=== PATIENT | male | born 1965 | race Caucasian/White ===

== ENCOUNTER 2020-08-04 08:39 | Outpatient (REF) | payer MEDICAID, SELFPAY ==
[2020-08-04 11:30] LABS: PSA,Total (Free>4and<10) 3.18 ng/mL (0.00-4.00)
== END 2020-08-04 08:40 | disposition home or self-care (01) ==
LOC: HO.LAB 08:39
PROVIDERS: PCP Family Medicine; Visit Provider Urology
DX: N42.9 Disorder of prostate, unspecified (principal)
CPT/HCPCS: 84153

== ENCOUNTER → 2020-09-11 08:47 | Outpatient (BNVA) | payer MEDICAID, SELFPAY | PROVIDERS: PCP Family Medicine; Visit Provider Nurse Practitioner | DX: Z76.89 Persons encountering health services in other specified circumstances (principal) ==

== ENCOUNTER → 2020-09-25 11:48 | Outpatient (BNVA) | payer MEDICAID, SELFPAY | PROVIDERS: PCP Family Medicine; Visit Provider Nurse Practitioner | DX: Z76.89 Persons encountering health services in other specified circumstances (principal) ==

== ENCOUNTER 2020-10-16 08:41 | Outpatient (REF) | payer MEDICAID, SELFPAY ==
--- NOTE | 2020-10-16 08:51 | XR_ITS ---
EXAMINATION: BILATERAL FEET CLINICAL INFORMATION: Bilateral foot pain. COMPARISON: 06/25/2013 and 06/22/2012. TECHNIQUE: 3 views of each foot. FINDINGS: 3 views of the right foot do not demonstrate any evidence of acute fracture or dislocation. No destructive bony lesions identified. No radiopaque foreign bodies. Joint spaces are maintained. There are Achilles and plantar calcaneal spurs present. No significant soft tissue swelling. 3 views of the left foot does not demonstrate any evidence of acute fracture or dislocation. No significant soft tissue swelling is appreciated. No radiopaque foreign body. There is minimal spurring about the 1st metatarsophalangeal joint. Calcaneal spurs sites of insertion of plantar and Achilles tendons again seen. XR/XR foot RT min 3V IMPRESSION: Bilateral calcaneal spurs.
--- NOTE | 2020-10-16 08:51 | XR_ITS ---
EXAMINATION: BILATERAL FEET CLINICAL INFORMATION: Bilateral foot pain. COMPARISON: 06/25/2013 and 06/22/2012. TECHNIQUE: 3 views of each foot. FINDINGS: 3 views of the right foot do not demonstrate any evidence of acute fracture or dislocation. No destructive bony lesions identified. No radiopaque foreign bodies. Joint spaces are maintained. There are Achilles and plantar calcaneal spurs present. No significant soft tissue swelling. 3 views of the left foot does not demonstrate any evidence of acute fracture or dislocation. No significant soft tissue swelling is appreciated. No radiopaque foreign body. There is minimal spurring about the 1st metatarsophalangeal joint. Calcaneal spurs sites of insertion of plantar and Achilles tendons again seen. XR/XR foot LT min 3V IMPRESSION: Bilateral calcaneal spurs.
== END 2020-10-16 08:42 | disposition home or self-care (01) ==
LOC: HO.XRAY 08:41
PROVIDERS: PCP Family Medicine; Visit Provider Family Medicine
DX: M79.671 Pain in right foot (principal); M79.672 Pain in left foot
CPT/HCPCS: 73630

== ENCOUNTER 2021-02-24 07:54 | Outpatient (REF) | payer MEDICAID, SELFPAY ==
[2021-02-24 10:08] LABS: PSA,Total (Free>4and<10) 6.21 ng/mL (0.00-4.00)
[2021-02-25 10:28] LABS: Free Prostate Spec Ag 0.9 ng/mL; Percent Free Prostate Spec Ag 16 % (calc) (>25); Prostate Specific Ag Total 5.7 ng/mL (< OR = 4.0)
== END 2021-02-24 07:55 | disposition home or self-care (01) ==
LOC: HO.LAB 07:54
PROVIDERS: PCP Family Medicine; Visit Provider Physician Assistant Surgical
DX: R97.20 Elevated prostate specific antigen [PSA] (principal); Z12.5 Encounter for screening for malignant neoplasm of prostate
CPT/HCPCS: 36415; 84153; 84154

== ENCOUNTER → 2021-03-12 09:22 | Outpatient (BNVA) | payer MEDICAID, SELFPAY | PROVIDERS: PCP Family Medicine; Visit Provider Nurse Practitioner ==

== ENCOUNTER 2021-04-28 12:57 | Emergency (ER) | payer MEDICAID, SELFPAY ==
--- NOTE | ~2021-04-28 | CT_ITS ---
EXAMINATION: CT CERVICAL SPINE WITHOUT CONTRAST CLINICAL INFORMATION: Fall COMPARISON: None TECHNIQUE: Axial images through the cervical spine without contrast. Sagittal and coronal reconstructions on the technologist workstation were performed. This CT examination was performed using dose optimization techniques as appropriate, variously including the following: *Automated exposure control *Adjustment of mA and/or kV according to patient size (this includes techniques or standardized protocols for targeted exams where dose is matched to indication/reason for exam; i.e. extremities or head) *Use of iterative reconstruction technique DLP: 828 mGy-cm FINDINGS: Bone alignment is normal. No fracture or dislocation is seen. There is degenerative spondylosis at C4-C5, C5-C6 and C6-C7. There is mild disc space narrowing at C4-C5. There are degenerative changes at the C1 dens articulation. Prevertebral soft tissues are normal. The lung apices are clear. CT/CT cervical spine wo con IMPRESSION: Degenerative degenerative changes. No fracture seen.
--- NOTE | ~2021-04-28 | CT_ITS ---
EXAMINATION: CT CHEST WITHOUT CONTRAST CLINICAL INFORMATION: Fall, trauma, back pain. COMPARISON: CT contrast noncontrast 02/08/2020. TECHNIQUE: Multidetector volumetric CT imaging of the chest was done. Axial MIP volume rendering provided. Sagittal and coronal reformatted images were obtained. This CT examination was performed using dose optimization techniques as appropriate, variously including the following: *Automated exposure control *Adjustment of mA and/or kV according to patient size (this includes techniques or standardized protocols for targeted exams where dose is matched to indication/reason for exam; i.e. extremities or head) *Use of iterative reconstruction technique DLP: 569 mGy-cm FINDINGS: LUNGS: The lungs are clear. There is no pneumothorax, airspace opacity or infiltrate. The central airways are clear. No endobronchial lesion or bronchiectasis. MEDIASTINUM: The mediastinum is unremarkable. There is no pericardial effusion. Thoracic aorta is normal in caliber. There is no hilar or mediastinal adenopathy. No mediastinal hematoma. No pneumomediastinum. PLEURA: No pleural thickening or effusion. AXILLA: No lymphadenopathy. UPPER ABDOMEN: Visualized liver and spleen are unremarkable. No upper abdominal ascites or fluid collection or free air. OSSEOUS STRUCTURES: No acute bony abnormality. No fracture. There is spurring thoracic vertebrae. CT/CT chest wo con IMPRESSION: Unremarkable examination.
--- NOTE | ~2021-04-28 | CT_ITS ---
EXAMINATION: CT LUMBAR SPINE WITHOUT CONTRAST CLINICAL INFORMATION: Pain post fall COMPARISON: None TECHNIQUE: Axial images through the lumbar spine without contrast. Sagittal and coronal reconstructions on the technologist workstation were performed. This CT examination was performed using dose optimization techniques as appropriate, variously including the following: *Automated exposure control *Adjustment of mA and/or kV according to patient size (this includes techniques or standardized protocols for targeted exams where dose is matched to indication/reason for exam; i.e. extremities or head) *Use of iterative reconstruction technique DLP; 905 mGy-cm FINDINGS: Bone alignment is normal. No fracture or dislocation is seen. T12-L1: No disc herniation is seen. There is facet arthritis. L1-L2: No disc herniation seen. There is facet arthritis. L2-L3: There is a broad-based diffuse disc bulge. There is mild secondary spinal stenosis due to disc bulge, short pedicles and facet arthritis. L3-L4: There is diffuse disc bulge. There is mild spinal stenosis due to disc, short pedicles and facet arthritis. L4-L5: There is a degenerative disc disease and diffuse disc bulge. There is severe secondary spinal stenosis due to disc bulge, short pedicles and facet arthritis. L5-S1: No disc herniation or bulge is seen. There is mild bilateral facet arthritis. CT/CT lumbar spine wo con IMPRESSION: No fracture or dislocation seen. Multilevel disc bulge and secondary spinal stenosis, greatest at L4-L5.
--- NOTE | ~2021-04-28 | CT_ITS ---
EXAMINATION: CT HEAD WITHOUT CONTRAST CLINICAL INFORMATION: Fall COMPARISON: None TECHNIQUE: Contiguous axial imaging was performed from the skull base to vertex without intravenous administration of contrast. This CT examination was performed using dose optimization techniques as appropriate, variously including the following: *Automated exposure control *Adjustment of mA and/or kV according to patient size (this includes techniques or standardized protocols for targeted exams where dose is matched to indication/reason for exam; i.e. extremities or head) *Use of iterative reconstruction technique DLP: 7.4 mGy-cm FINDINGS: There is no evidence of acute intracranial hemorrhage or territorial infarction. No abnormal mass effect or midline shift is seen. Mejia to white matter differentiation is well preserved. No extra-axial fluid collections are identified. The ventricles are normal in size. There is no abnormal attenuation within the brain parenchyma. The osseous structures and soft tissues are normal. The mastoid air cells and visualized portions of the paranasal sinuses are well aerated. CT/CT head/brain wo con IMPRESSION: Unremarkable exam.
[2021-04-28 13:34] VITALS: BP 162/87; PULSE 57; RESP 18; TEMP 36.4; O2SAT 96; BMI 41.3
[2021-04-28] MEDS: oxyCODONE HCl Immed Release 5 MG TABLET PO (14:34)
[2021-04-28] MEDS: Acetaminophen 325 MG TABLET 975 MG PO (14:34)
--- NOTE | 2021-04-28 15:03 | ED.FALL ---
HPI - Fall General Chief Complaint: Fall Stated Complaint: fell off ladder chest pain Time Seen by Provider: 04/28/21 13:36 Source: patient Mode of arrival: ambulatory Limitations: language barrier ([place]ander-speaking) History of Present Illness HPI Narrative: 55-year-old male presenting to the ED with complaints of neck and entire back pain after he was on a 6 ft ladder trying to change a light bulb he lost his balance falling onto his back prior to arrival. Denies head injury or loss of consciousness. Denies being on any blood thinners. Denies any symptoms prior to the fall. Reports only pain after the fall no other symptoms. Denies any other symptoms complaints or concerns or injuries at this time. MD complaint: fall Onset (ago): minute(s) (Prior to arrival) Fall from: from height (distance) (From 6 ft off of a ladder) Fall witnessed: yes, by family Place fall occurred: home Loss of consciousness: none Prolonged down time: no Symptoms prior to fall: none Context: tripped/slipped Location of injury: neck and back Severity: severe Severity scale (1-10): >10 Quality: aching, spasming and throbbing Associated symptoms (after fall): denies Related Data Previous Rx's Medication Instructions Recorded bisacodyl 5 mg tablet,delayed 10 mg PO BEDTIME 2 Days #4 tab 03/12/21 release (Dulcolax (bisacodyl)) calcium polycarbophil 625 mg 1,250 mg PO BID 30 Days #120 tab 03/12/21 tablet (Fiber Therapy (ca polycarbophil)) magnesium citrate 150 ml PO DAILY 2 Days #300 ml 03/12/21 pantoprazole 40 mg tablet,delayed 40 mg PO BID 30 Days #60 tab 03/12/21 release (Protonix) acetaminophen 500 mg tablet 1,000 mg PO QID PRN #14 tab 04/28/21 (Tylenol Extra Strength) cyclobenzaprine 10 mg tablet 10 mg PO Q8H #10 tab 04/28/21 oxycodone 5 mg tablet 5 mg PO BID PRN #10 tab 04/28/21 Allergies Allergy/AdvReac Type Severity Reaction Status Date / Time No Known Allergies Allergy Unknown unknown Verified 03/12/21 09:22 [NO KNOWN ALLERGIES] seasonal Allergy Runny Nose Uncoded 09/25/20 11:50 Review of Systems Review of Systems: Constitutional : No trauma, No Weight loss, No Fever, No Chills, ENT/Mouth : No Hearing loss, No Ear Pain, No Nasal Congestion, No Sinus Pain, No Hoarseness, No sore throat, No Rhinorrhea, No Swallowing Difficulty Cardiovascular : No Chest Pain, No SOB Respiratory : No Cough, No Dyspnea Gastrointestinal : No Nausea, No Vomiting, No Diarrhea, No abdominal Pain, No Hematochezia, No Melena Genitourinary : No Dysuria, No Urinary Frequency, No Hematuria, No Urinary or Bowel Incontinence/retention Musculoskeletal : + Back pain, + neck pain, No joint stiffness, No joint swelling Skin : No Skin Lesions, No rash or signs of infection Neuro : No Weakness, No radiation, No Numbness, No Paresthesias, No headache, no loss of bowel or bladder incontinence, no saddle anesthesia, Focal weakness, No radiation Denies history of IV drug usage. Yes all other systems are reviewed and are negative PMFSH Past Medical History Attestation statement: The following information was validated with the patient. Medical History Asthma HTN (hypertension) Surgical History H/O colonoscopy H/O esophagogastroduodenoscopy Previous back surgery Family History Family History Family/Other No pertinent past medical history Social History Social History Alcohol intake: current Alcohol intake frequency: does not drink Advance Directives: No Advance Directives Information Provided: No Physical Exam Vital Signs: Vital Signs: Last Vital Signs Temp 97.6 F 04/28/21 13:34 Pulse 57 04/28/21 13:34 Resp 18 04/28/21 13:34 BP 162/87 H 04/28/21 13:34 Pulse Ox 96 04/28/21 13:34 Body Mass Index 41.3 vital signs have been reviewed as normal and appeared to be correct. Blood pressure normal. Heart rate normal. Respiration rate normal. Temperature normal. Oxygen saturation normal. Appearance: Alert. Oriented X3. No acute distress. Head: Normal external exam. Normocephalic. Atraumatic. No Mason signs noted. No raccoon eyes noted Eyes: PERRLA. EOMI. Conjunctiva and sclera normal. Eyelids normal. ENT: EAC normal. TM's Normal. Pharynx normal. Uvula midline. Moist mucous membranes. No trismus noted. No drooling noted. No muffled voice noted. Neck: Normal inspection. Neck supple. FROM. No adenopathy. Thyroid Normal. Trachea midline. No meningeal signs. No neck mass noted. Tender to palpation of bilateral paracervical musculature and mid cervical tenderness. No step-offs or deformities noted. Patient neuro intact bilaterally and distally on all 4 extremities. Reflexes intact bilaterally and distally in all 4 extremities. No rashes/lesion/induration/fluctuance or signs of infection noted. No edema noted. CVS: Normal heart rate and rhythm. Heart sound normal. No murmurs noted. Pulses normal throughout. Respiratory: No respiratory distress. Painless inspiration. Breath sounds normal. No wheezes/rales/rhonchi noted. Chest nontender. No accessory muscle usage noted or decreased air movement noted. Abdomen: Soft and nontender. Bowel sounds normal in all 4 quadrants. No distention noted. No organomegaly noted. No visible injury noted. Back: No CVA tenderness. Full range of motion noted. No obvious deformities, or edema. Mild para-spinal muscular tenderness from lumbar region to coccyx. Full ROM in back and lower extremities. 5/5 strength hip extension/flexion, abduction, adduction. Mild Lumbar pain with hip flexion against resistance. Straight leg raise test negative on right; Straight leg raise test negative on left; Reflexes normal ankle and knee bilaterally; EHL motor strength normal bilaterally. Patient has moderate ecchymosis to mid thoracic spine. rashes/lesion/induration/fluctuance or signs infection noted. Skin: Skin warm and dry. Normal skin color. Normal skin turgor. No rashes/lesions/lacerations noted. Extremities: No lower extremity edema. Extremities exhibit normal range of motion. Extremities nontender. Neuro: Oriented X 3. No motor deficit. No sensory deficit. Reflexes normal. Patient has a normal steady gait. Course Course Course Narrative: 55-year-old male presenting to the ED with complaints of neck and back pain after he fell off of a ladder approximately 6 ft while he was changing a light bulb. Denies head injury or loss of consciousness. Denies being on any blood thinners. Denies any other injuries complaints or concerns. Denies any symptoms prior to the fall and reports only pain after the fall no other injuries or symptoms. Obtaining CT scan of brain/cervical spine/chest and lumbar spine if negative will DC home with symptomatic treatment and instructions return if any new or worsening symptoms and to follow up with primary care provider. Patient understands agrees with this plan. MDM - Fall Medical Records Attestation: I reviewed the patient's medical records. Lab Data Attestation: I reviewed the patient's lab results. Discharge Plan Discharge Clinical Impression: Fall, Acute cervical sprain, Lumbar back sprain, Ecchymosis Patient Disposition: Home, Self-Care Instructions: Fall Prevention for Older Adults (ED), Low Back Strain (ED), Cervical Sprain (ED), Lower Back Exercises (ED), Thoracic Back Strain (ED) Prescriptions: New cyclobenzaprine 10 mg tablet 10 mg PO Q8H Qty: 10 RF: 0 acetaminophen [Tylenol Extra Strength] 500 mg tablet 1,000 mg PO QID PRN (Reason: fever or pain) Qty: 14 RF: 0 oxycodone 5 mg tablet 5 mg PO BID PRN (Reason: pain) Qty: 10 RF: 0 No Action calcium polycarbophil [Fiber Therapy (ca polycarboph)] 625 mg tablet 1,250 mg PO BID 30 Days Qty: 120 RF: 6 pantoprazole [Protonix] 40 mg tablet,delayed release (DR/EC) 40 mg PO BID 30 Days Qty: 60 RF: 6 bisacodyl [Dulcolax (bisacodyl)] 5 mg tablet,delayed release (DR/EC) 10 mg PO BEDTIME 2 Days Qty: 4 RF: 0 magnesium citrate Solution 150 ml PO DAILY 2 Days Qty: 300 RF: 0 Referrals: Kristen Cruz MD [Primary Care Provider] - 2 days Print Language: [place]ander
== END 2021-04-28 15:49 | disposition home or self-care (01) ==
PROVIDERS: Emergency Provider Emergency Medicine; PCP Family Medicine
DX: S13.9XXA Sprain of joints and ligaments of unspecified parts of neck, initial encounter (principal); S33.5XXA Sprain of ligaments of lumbar spine, initial encounter; S30.0XXA Contusion of lower back and pelvis, initial encounter; M54.2 Cervicalgia; M54.6 Pain in thoracic spine; G44.309 Post-traumatic headache, unspecified, not intractable; W11.XXXA Fall on and from ladder, initial encounter; Y93.9 Activity, unspecified; Y92.9 Unspecified place or not applicable; Y99.9 Unspecified external cause status; Z79.899 Other long term (current) drug therapy
CPT/HCPCS: 70450; 71250; 72125; 72131; 99283

== ENCOUNTER 2021-09-15 10:49 | Day surgery (SDC) | payer MEDICAID, SELFPAY ==
[2021-09-09 09:52] VITALS: BMI 39.9
--- NOTE | 2021-09-14 10:14 | HO.ANESPROP2 ---
Documented by User: Griselda Andrews NP 09/14/21 10:14 HPI - Anesthesia Eval Consult details Narrative: 56yo M for Colonoscopy PMFSH Active Problems Active Problems: All Active Problems (Updated 09/09/21 @ 10:04 by Katlyn Harding RN) GERD (gastroesophageal reflux disease) (Acute) Chronic diarrhea (Acute) Tubular adenoma of colon (Acute) Asthma (Acute) HTN (hypertension) (Acute) Past Medical History Medical History (Updated 09/09/21 @ 10:04 by Katlyn Harding RN) Asthma BPH (benign prostatic hyperplasia) HTN (hypertension) Low back pain KANWAL on CPAP Family History Family History Family/Other No pertinent past medical history Surgical History Surgical History (Updated 09/09/21 @ 09:51 by Katlyn Harding RN) H/O colonoscopy H/O esophagogastroduodenoscopy History of nasal surgery Previous back surgery Social History Social History (Updated 09/09/21 @ 09:50 by Katlyn Harding RN) Alcohol intake: current Alcohol intake frequency: does not drink Patient Tobacco Use Status: Never used Tobacco Use of substances other than those prescribed or required for medical reasons: No Have you been hit, kicked, punched, or otherwise hurt by someone within the past year? If so, by whom?: No Are you DNR?: No Advance Directives: No Advance Directives Information Provided: Yes Advance Directives on File: No Recently lost weight without trying: No Meds Allergies Allergy/AdvReac Type Severity Reaction Status Date / Time No Known Allergies Allergy Unknown unknown Verified 09/09/21 09:50 [NO KNOWN ALLERGIES] seasonal Allergy Runny Nose Uncoded 09/25/20 11:50 Home Medications Medication Instructions Recorded Confirmed Last Taken Type albuterol sulfate 90 mcg/actuation 2 puff PO Q6H PRN 09/09/21 09/09/21 Unknown History aerosol inhaler (ProAir HFA) lisinopril 40 mg tablet 40 mg PO DAILY 09/09/21 09/09/21 Unknown History Exam Exam Date and Time: September 14, 2021 1014 Height,Weight and Vital Signs: Height 5 ft 9 in Weight 122.47 kg Assessment and Plan Assessment Anesthesia Assessment: Chart Reviewed Documented by User: Mario Sagar 09/15/21 11:38 PMFSH Past Medical History Medical History (Updated 09/09/21 @ 10:04 by Katlyn Harding RN) Asthma BPH (benign prostatic hyperplasia) HTN (hypertension) Low back pain KANWAL on CPAP Family History Family History Family/Other No pertinent past medical history Family history of problems with anesthesia: No Surgical History Surgical History (Updated 09/09/21 @ 09:51 by Katlyn Harding RN) H/O colonoscopy H/O esophagogastroduodenoscopy History of nasal surgery Previous back surgery History of Problems with Anesthesia: No Social History Social History (Updated 09/09/21 @ 09:50 by Katlyn Harding RN) Alcohol intake: current Alcohol intake frequency: does not drink Patient Tobacco Use Status: Never used Tobacco Use of substances other than those prescribed or required for medical reasons: No Have you been hit, kicked, punched, or otherwise hurt by someone within the past year? If so, by whom?: No Are you DNR?: No Advance Directives: No Advance Directives Information Provided: Yes Advance Directives on File: No Recently lost weight without trying: No Meds Allergies Allergy/AdvReac Type Severity Reaction Status Date / Time No Known Allergies Allergy Unknown unknown Verified 09/09/21 09:50 [NO KNOWN ALLERGIES] seasonal Allergy Runny Nose Uncoded 09/25/20 11:50 Home Medications Medication Instructions Recorded Confirmed Last Taken Type albuterol sulfate 90 mcg/actuation 2 puff PO Q6H PRN 09/09/21 09/09/21 Unknown History aerosol inhaler (ProAir HFA) lisinopril 40 mg tablet 40 mg PO DAILY 09/09/21 09/09/21 Unknown History Exam Airway Mallampati Class: III TM Dist: >3cm Neck ROM: Full Loose/Missing/Broken Teeth: Yes (Missing teeth ) Heart: rrr Lungs: bl breath sounds Assessment and Plan Final Anesthetic Review Family History of Problems with Anesthesia: No History of Problems with Anesthesia: No NPO: Yes ASA Class: II Final Preanesthetic Review: Meds/Filipe Chart Reviewed Patient Risk: Intermediate Procedure Risk: Intermediate Anesthetic Plan Anesthetic Plan: MAC: Disposition: Standard PACU
[2021-09-15 10:53] VITALS: BP 146/101; PULSE 68; RESP 17; TEMP 37; O2SAT 98
[2021-09-15] MEDS: Lactated Ringers 1,000 ML 100 ML IVCONT (11:10)
--- NOTE | 2021-09-15 12:37 | MHC.SHP ---
Pre-Procedural Eval Section A Date of Service: 09/15/21 The patient is an INPATIENT: No The History & Physical has been completed within 30 days and I have reviewed it.: No Section B Chief Complaint: Noninfective Gastroenteritis and Colitis Details of Present Illness: Colon cancer screening, history of colon polyps, diarrhea Relevant Family History (Specify if Yes): No Relevant Social History: None Present Medications: see Short Stay Collaborative assessment Medical History: Significant History (GERD, Htn, asthma) History of Previous Operations: Relevant previous surgery/procedure and date(s) (H/O colonoscopy H/O esophagogastroduodenoscopy) Allergies: Allergies Allergy/AdvReac Type Severity Reaction Status Date / Time No Known Allergies Allergy Unknown unknown Verified 09/09/21 09:50 [NO KNOWN ALLERGIES] seasonal Allergy Runny Nose Uncoded 09/25/20 11:50 Review of Systems Sugical H&P ROS: Negative: Constitution, Cardiovascular and Respiratory and Yes, Specify: Gastrointestinal (diarrhea) Exam Surgical H&P Exam: Normal: Heart, Normal: Lungs and Normal: Abdomen Plan Diagnosis/Plan: Unchanged I have reviewed the history and physical and performed a pertinent physical examination on my patient. No changes have occurred unless specified.
--- NOTE | 2021-09-15 12:43 | PM.PROC ---
Brief Operative Note Date of procedure: 09/15/21 Pre-op diagnosis: , colon cancer screening, history of colon polyps, chronic diarrhea Post-op diagnosis: other (Colon polyps, diverticulosis, hemorrhoids) Procedure: Procedure:? COLONOSCOPY TILL CECUM WITH BIOPSIES, SNARE POLYPECTOMY AND SUBMUCOSAL INJECTION Consent: Indications for the procedure and potential complications of bleeding, perforation, reaction to medications and missed diagnosis were discussed with the patient and informed consent was obtained. Instrument: Olympus CF H 190 L variable stiffness adult colonoscope Monitoring: Vital signs and clinical assessment, intermittent blood pressure monitoring, continuous EKG monitoring, Pulse oximetry and Carbon Dioxide monitoring were done throughout the procedure. Colon withdrawl time was 35 minutes. Procedure: The patient was placed in the left lateral decubitis position and pre-procedure medications were administered. After a digital rectal examination of the ano-rectum, the video colonoscope was inserted into the rectum and advanced through the colon to the cecum. The colonoscope was slowly withdrawn in a retrograde panoramic fashion and the colon mucosa was carefully examined including a retroflexed view of the rectum. Findings and interventions are described below. Procedure Difficulty: Without difficulty Findings: Terminal Ileum: Not evaluated Cecum:? Normal Ascending Colon:? Normal Transverse Colon:? Three 10-15 mm sessile polyps removed by hot and cold snare. A 3-4 mm sessile polyp at 70 cms removed with a cold bx. A 15 mm sessile polyp at 60 cms - adjacent to a site of past Rosa ink injection - raised with 4 cc of Orise solution and removed with a hot snare Descending Colon:? Normal Sigmoid Colon:? A 10-12 mm sessile polyp removed with a hot snare. Moderate diverticulosis Rectum:? Normal Ano-rectum:? Small internal hemorrhoids Colon preparation:? Good after copious irrigation Impression and Post Procedure Diagnosis: Colonoscopy Findings: Six medium sized polyps removed. Random biopsies were obtained from the colon to check for microscopic colitis. Moderate diverticulosis seen in the left colon Small hemorrhoids on retroflexed exam. Plan: Await pathology results Patient has an appointment on 09/29/21 in the [facility] with? Roxi Reyes NP? . Repeat Colonoscopy interval based on path results - in 2 years if polyps are adenomatous and 10 years if polyps are hyperplastic. Above findings were reviewed with the patient and [colon polyps] and [diverticulosis] handouts were given in the discharge area Surgeon:?Urbano Seymour MD Anesthesia: MAC (Carla Ross CRNA) Surgeon: Urbano Seymour Photography Instructor: Quiana Batista Estimated blood loss (mL): 0 Pathology: other ((A. transverse colon polyps? B. transverse colon polyp at 70 cm? C. random colon bxs, R/O microscopic colitis? D. transverse colon polyp at 60 cm with Orise? E. sigmoid colon polyp)) Condition: stable Disposition: PACU
[2021-09-15 13:53] VITALS: BP 124/78; PULSE 62; RESP 16; TEMP 36.1; O2SAT 96
[2021-09-15 14:08] VITALS: BP 141/90; PULSE 48; RESP 17; TEMP 36.1; O2SAT 99
== END 2021-09-15 14:41 | disposition home or self-care (01) ==
PROVIDERS: PCP Family Medicine; Visit Provider Internal Medicine Gastroenterology
PROC: 0DJD8ZZ Inspection of Lower Intestinal Tract, Via Natural or Artificial Opening Endoscopic (ICD-10-PCS; CPT 45378; principal; 2021-09-15 12:00)
DX: Z12.11 Encounter for screening for malignant neoplasm of colon (principal); Z86.010 Personal history of colon polyps; D12.3 Benign neoplasm of transverse colon; D12.5 Benign neoplasm of sigmoid colon; K63.5 Polyp of colon; K57.30 Diverticulosis of large intestine without perforation or abscess without bleeding; K64.8 Other hemorrhoids; K52.9 Noninfective gastroenteritis and colitis, unspecified; K21.9 Gastro-esophageal reflux disease without esophagitis; I10 Essential (primary) hypertension; J45.909 Unspecified asthma, uncomplicated; G47.33 Obstructive sleep apnea (adult) (pediatric); Z99.89 Dependence on other enabling machines and devices; Z79.899 Other long term (current) drug therapy
CPT/HCPCS: 45385; 45380; 45381; 88305; J2250

== ENCOUNTER → 2021-09-29 14:19 | Outpatient (BNVA) | payer MEDICAID, SELFPAY | PROVIDERS: PCP Family Medicine; Referring Provider Family Medicine; Visit Provider Nurse Practitioner | DX: K21.9 Gastro-esophageal reflux disease without esophagitis (principal); K52.9 Noninfective gastroenteritis and colitis, unspecified; D12.6 Benign neoplasm of colon, unspecified | CPT/HCPCS: 99212 ==

== ENCOUNTER 2021-10-20 09:29 | Emergency (ER) | payer MEDICAID, SELFPAY ==
--- NOTE | ~2021-10-20 | XR_ITS ---
EXAMINATION: XR HAND, LEFT CLINICAL INFORMATION: Laceration. COMPARISON: None TECHNIQUE: PA, lateral, and oblique views of the left hand. FINDINGS: The bones and soft tissues are normal. No fracture. Alignment is anatomic. Joint spaces are maintained. No erosions or soft tissue calcifications. There is no soft tissue laceration visualized on this x-ray. XR/XR hand LT 2V IMPRESSION: Unremarkable left hand exam.
[2021-10-20 09:48] VITALS: BP 146/83; PULSE 59; RESP 19; TEMP 36.6; O2SAT 99; BMI 40.7
--- NOTE | 2021-10-20 10:12 | ED_ITS ---
HPI - Wound/Laceration General Chief Complaint: Wound/Laceration <Lula Temple NP - Last Filed: 10/20/21 11:09> Stated Complaint: thumb lac <Lula Temple NP - Last Filed: 10/20/21 11:09> Time Seen by Provider: 10/20/21 09:43 <Lula Temple NP - Last Filed: 10/20/21 11:09> Source: patient <Lula Temple NP - Last Filed: 10/20/21 11:09> Mode of arrival: ambulatory <Lula Temple NP - Last Filed: 10/20/21 11:09> Limitations: no limitations <Lula Temple NP - Last Filed: 10/20/21 11:09> History of Present Illness HPI narrative: 56 yo male with history of HTN, asthma, GERD here with laceration to left hand. 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 This occurred just [employer]. Last tetanus 1 yr ago. No numbness, tingling, weakness, fevers, chills. <Lula Temple NP - Last Filed: 10/20/21 11:09> Related Data Home Medications: Home Medications Medication Instructions Recorded Confirmed albuterol sulfate 90 mcg/actuation 2 puff PO Q6H PRN 09/09/21 09/09/21 aerosol inhaler (ProAir HFA) lisinopril 40 mg tablet 40 mg PO DAILY 09/09/21 09/09/21 Previous Rx's Medication Instructions Recorded acetaminophen 500 mg tablet 1,000 mg PO QID PRN #14 tab 04/28/21 (Tylenol Extra Strength) cyclobenzaprine 10 mg tablet 10 mg PO Q8H #10 tab 04/28/21 oxycodone 5 mg tablet 5 mg PO BID PRN #10 tab 04/28/21 calcium polycarbophil 625 mg 1,250 mg PO BID 30 Days #120 tab 09/29/21 tablet (Fiber Therapy (ca polycarbophil)) pantoprazole 40 mg tablet,delayed 40 mg PO BID 30 Days #60 tab 09/29/21 release (Protonix) <Lula Temple NP - Last Filed: 10/20/21 11:09> Allergies/Adverse Reactions: Allergies Allergy/AdvReac Type Severity Reaction Status Date / Time No Known Allergies Allergy Unknown unknown Verified 09/29/21 14:38 [NO KNOWN ALLERGIES] seasonal Allergy Runny Nose Uncoded 09/25/20 11:50 <Lula Temple NP - Last Filed: 10/20/21 11:09> Review of Systems Review of Systems: Yes all other systems are reviewed and are negative <Lula Temple NP - Last Filed: 10/20/21 11:09> Constitutional: Constitutional: Reports no additional constitutional complaints, Denies body ache(s), Denies chills, Denies fever(s), Denies headache(s) and Denies weakness <Lula Temple NP - Last Filed: 10/20/21 11:09> Eyes: Eyes: Reports no additional eye complaints and Denies change in vision <Lula Temple NP - Last Filed: 10/20/21 11:09> ENT: Reports system reviewed and no additional complaints, except as documented, Denies dizziness, Denies headache(s), Denies nasal congestion, Denies nasal discharge and Denies neck pain <Lula Temple NP - Last File d: 10/20/21 11:09> Cardiovascular: Cardiovascular: Reports no additional cardiovascular complaints, Denies chest pain, Denies leg edema and Denies dyspnea <Lula Temple NP - Last Filed: 10/20/21 11:09> Respiratory: Respiratory: Reports no additional respiratory complaints, Denies cough and Denies dyspnea <Lula Temple NP - Last Filed: 10/20/21 11:09> Gastrointestinal: Gastrointestinal: Reports no additional gastrointestinal complaints, Denies abdominal pain, Denies diarrhea, Denies nausea and Denies vomiting <Lula Temple NP - Last Filed: 10/20/21 11:09> Genitourinary: Genitourinary: Denies urinary incontinence <Lula Temple NP - Last Filed: 10/20/21 11:09> Musculoskeletal: Musculoskeletal: Reports no additional musculoskeletal complaints, Denies back pain, Denies arthralgias, Denies joint swelling, Denies neck pain, Denies numbness and Denies tingling <Lula Temple NP - Last Filed: 10/20/21 11:09> Integumentary/Breasts: Skin/Breast: Reports system reviewed and no additional complaints, except as docu and Denies rash <Lula Temple NP - Last Filed: 10/20/21 11:09> Comments: +laceration <Lula Temple NP - Last Filed: 10/20/21 11:09> Neurologic: Reports system reviewed and no additional complaints, except as documented, Denies Abnormal speech present, Denies dizziness, Denies headache(s), Denies numbness, Denies tingling and Denies weakness <Lula Temple NP - Last Filed: 10/20/21 11:09> [facility] Past Medical History Attestation statement: The following information was validated with the patient. <Lula Temple NP - Last Filed: 10/20/21 11:09> Source: old records reviewed and nursing notes reviewed <Lula Temple NP - Last Filed: 10/20/21 11:09> Medical History: Medical History Asthma BPH (benign prostatic hyperplasia) HTN (hypertension) Low back pain KANWAL on CPAP <Lula Temple NP - Last Filed: 10/20/21 11:09> Surgical History: Surgical History H/O colonoscopy H/O esophagogastroduodenoscopy History of nasal surgery Previous back surgery <Lula Temple NP - Last Filed: 10/20/21 11:09> Family History Family History: Family History Family/Other No pertinent past medical history <Lula Temple NP - Last Filed: 10/20/21 11:09> Social History Social History: Social History Alcohol intake: current Alcohol intake frequency: does not drink Patient Tobacco Use Status: Never used Tobacco Advance Directives: No Advance Directives Information Provided: No <Lula Temple NP - Last Filed: 10/20/21 11:09> Physical Exam 2 Vital Signs: Vital Signs: Last Vital Signs Temp 98 F 10/20/21 09:48 Pulse 59 10/20/21 09:48 Resp 19 10/20/21 09:48 BP 146/83 H 10/20/21 09:48 Pulse Ox 99 10/20/21 09:48 BMI result Body Mass Index 40.7 <Lula Temple NP - Last Filed: 10/20/21 11:09> Vital Signs: Last Vital Signs Temp 98 F 10/20/21 09:48 Pulse 59 10/20/21 09:48 Resp 10/20/21 09:48 BP 146/83 H 10/20/21 09:48 Pulse Ox 99 10/20/21 09:48 BMI result Body Mass Index 40.7 <Alejandro Morton MD - Last Filed: 10/20/21 11:30> Const: General: cooperative, healthy appearing, comfortable and no acute distress <Lula Temple NP - Last Filed: 10/20/21 11:09> Orientation/consciousness: patient oriented x3 <Lula Temple NP - Last Filed: 10/20/21 11:09> Limitations: no limitations <Lula Temple NP - Last Filed: 10/20/21 11:09> HENMT: Head: Yes normal to inspection <Lula Temple NP - Last Filed: 10/20/21 11:09> Ears: hearing grossly normal bilaterally <Lula Temple NP - Last Filed: 10/20/21 11:09> General nose exam: Normal external nose present <Lula Temple NP - Last Filed: 10/20/21 11:09> Face and sinus: Yes normal facial exam <Lula Temple NP - Last Filed: 10/20/21 11:09> Mouth: Normal oral and palatal mucosa present <Lula Temple NP - Last Filed: 10/20/21 11:09> Throat: Yes posterior oropharynx normal <Lula Temple NP - Last Filed: 10/20/21 11:09> Eyes: General: appearance normal, both eyes and all related structures <Lula Temple NP - Last Filed: 10/20/21 11:09> Pupils: Equal, round and reactive pupils present <Lula Temple NP - Last Filed: 10/20/21 11:09> Neck: Neck: Yes normal visual inspection <Lula Temple NP - Last Filed: 10/20/21 11:09> Chest: Chest palpation & inspection: normal inspection of the chest <Lula Temple NP - Last Filed: 10/20/21 11:09> Resp: Effort & Inspection: normal respiratory effort <Lula Temple NP - Last Filed: 10/20/21 11:09> Auscultation: clear to auscultation bilaterally <Lula Temple NP - Last Filed: 10/20/21 11:09> Cardio: Rate: regular rate <Lula Temple NP - Last Filed: 10/20/21 11:09> Rhythm: regular rhythm <Lula Temple NP - Last Filed: 10/20/21 11:09> Peripheral pulses: Peripheral pulses 2+ throughout <Lula Temple NP - Last Filed: 10/20/21 11:09> GI: Inspection: Yes normal to inspection <Lula Temple NP - Last Filed: 10/20/21 11:09> Palpation (GI): Soft to palpation and nontender <Lula Temple NP - Last Filed: 10/20/21 11:09> Auscultation: normal bowel sounds <Lula Temple NP - Last Filed: 10/20/21 11:09> Back/Spine/Pelvis: Thoracic/Lumbar Spine: thoracic and lumbar spine normal to inspection <Lula Tempel NP - Last Filed: 10/20/21 11:09> Skin: General skin exam: no rashes or lesions noted <Lula Temple NP - Last Filed: 10/20/21 11:09> Neuro: General: patient oriented x3, no focal motor deficits and normal sensation to monofilament <DONNY Saldana Last Filed: 10/20/21 11:09> Cranial nerves: Yes Equal, round and reactive pupils present <Lula Temple NP - Last Filed: 10/20/21 11:09> Cognition (Neuro): normal cognition <Lula Temple NP - Last Filed: 10/20/21 11:09> Speech: No Abnormal speech present <Lula Temple NP - Last Filed: 10/20/21 11:09> Gait exam (Neuro): Normal gait present <DONNY Saldana Last Filed: 10/20/21 11:09> Motor exam (neuro): 5/5 motor strength present throughout <DONNY Saldana Last Filed: 10/20/21 11:09> Extrem: Other: To the dorsal aspect of the left thumb at the PIP there is a laceratiion present 2cm with full flexion/extension of thumb with no difficulty. NV intact distally. Bleeding controlled <DONNY Saldana Last Filed: 10/20/21 11:09> General: Yes normal to inspection <Lula Temple NP - Last Filed: 10/20/21 11:09> Course Course Course Narrative: 56-year-old male here with laceration to the left hand which occurred after working with a metal mold dresser. X-ray shows no bony abnormality See wound repair note for closure Tetanus is up-to-date. Reviewed worrisome signs and symptoms of when to return to the emergency department. Comfortable discharge home. <Lula Temple NP - Last Filed: 10/20/21 11:09> MDM - Wound/Laceration Differential Diagnosis Differential diagnosis: Likely laceration <DONNY Saldana Last Filed: 10/20/21 11:09> Medical Records Attestation: I reviewed the patient's medical records. <DONNY Saldana Last Filed: 10/20/21 11:09> Lab Data Attestation: I reviewed the patient's lab results. <DONNY Saldana Last Filed: 10/20/21 11:09> Imaging Data hand x-ray: Attestation: I personally reviewed and interpreted this imaging study as follows: <Lula Temple NP - Last Filed: 10/20/21 11:09> Radiologist's impression: EXAMINATION: XR HAND, LEFT CLINICAL INFORMATION: Laceration.? COMPARISON: None? TECHNIQUE: PA, lateral, and oblique views of the left hand. FINDINGS: The bones and soft tissues are normal. No fracture. Alignment is anatomic. Joint spaces are maintained. No erosions or soft tissue calcifications. There is no soft tissue laceration visualized on this x-ray. XR/XR hand LT 2V IMPRESSION: Unremarkable left hand exam. <Lula Temple NP - Last Filed: 10/20/21 11:09> Procedures Laceration Laceration 1: Site: hand <Lula Temple NP - Last Filed: 10/20/21 11:09> Side (If applicable): left <Lula Temple NP - Last Filed: 10/20/21 11:09> Size (cm): 2 <Lula Temple NP - Last Filed: 10/20/21 11:09> Description: linear <Lula Temple NP - Last Filed: 10/20/21 11:09> Depth: simple, single layer <Lula Temple NP - Last Filed: 10/20/21 11:09> Local Anesthetic: lidocaine 2% <DONNY Saldana Last Filed: 10/20/21 11:09> Amount of anesthesia used (mL): 5 <DONNY Saldana Last Filed: 10/20/21 11:09> Pre-repair: wound explored, irrigated extensively and deep structures intact <Lula Temple NP - Last Filed: 10/20/21 11:09> Skin layer closed with: vicryl <DONNY Saldana Last Filed: 10/20/21 11:09> Size (cm): 5-0 <DONNY Saldana Last Filed: 10/20/21 11:09> Number of sutures: 3 <Lula Temple NP - Last Filed: 10/20/21 11:09> Technique: simple, interrupted <Lula Temple NP - Last Filed: 10/20/21 11:09> Discharge Plan Discharge Clinical Impression: Laceration <Lula Temple NP - Last Filed: 10/20/21 11:09> Patient Disposition: Home, Self-Care <Lula Temple NP - Last Filed: 10/20/21 11:09> Instructions: Finger Laceration (ED) <Lula Temple NP - Last Filed: 10/20/21 11:09> Additional Instructions: Sutures out in 7-10 days Wash with soap and water daily <Lula Temple NP - Last Filed: 10/20/21 11:09> Prescriptions: No Action cyclobenzaprine 10 mg tablet 10 mg PO Q8H Qty: 10 RF: 0 acetaminophen [Tylenol Extra Strength] 500 mg tablet 1,000 mg PO QID PRN (Reason: fever or pain) Qty: 14 RF: 0 oxycodone 5 mg tablet 5 mg PO BID PRN (Reason: pain) Qty: 10 RF: 0 albuterol sulfate [ProAir HFA] 90 mcg/actuation HFA aerosol inhaler 2 puff PO Q6H PRN (Reason: Shortness Of Breath Or Wheezing) RF: 0 lisinopril 40 mg Tablet 40 mg PO DAILY RF: 0 pantoprazole [Protonix] 40 mg tablet,delayed release (DR/EC) 40 mg PO BID 30 Days Qty: 60 RF: 6 calcium polycarbophil [Fiber Therapy (ca polycarboph)] 625 mg tablet 1,250 mg PO BID 30 Days Qty: 120 RF: 6 <Lula Temple NP - Last Filed: 10/20/21 11:09> Referrals: Kristen Cruz MD [Primary Care Provider] - 2 days <Lula Temple NP - Last Filed: 10/20/21 11:09> Interventions: ED Discharge Assessment Last Done: 10/20/21 11:09 <Lula Temple NP - Last Filed: 10/20/21 11:09> Discharge Date/Time: 10/20/21 11:10 <Lula Temple NP - Last Filed: 10/20/21 11:09>
[2021-10-20] MEDS: Lidocaine HCl 2 % MPF 5 ML VIAL SUBCUT (11:08)
== END 2021-10-20 11:10 | disposition home or self-care (01) ==
PROVIDERS: Emergency Provider Emergency Medicine; PCP Family Medicine
DX: S61.412A Laceration without foreign body of left hand, initial encounter (principal); M79.642 Pain in left hand; W31.82XA Contact with other commercial machinery, initial encounter; Y93.9 Activity, unspecified; Y92.9 Unspecified place or not applicable; Y99.0 Civilian activity done for income or pay; Z79.899 Other long term (current) drug therapy
CPT/HCPCS: 12001; 73120; 99283; 99284

== ENCOUNTER 2021-11-26 08:04 | Emergency (ER) | payer MEDICAID, SELFPAY ==
--- NOTE | ~2021-11-26 | XR_ITS ---
EXAMINATION: XR CHEST CLINICAL INFORMATION: Chest pain with cough COMPARISON: April 28, 2021 TECHNIQUE: 2 views of the chest were obtained. FINDINGS: No significant abnormality is noted involving the heart, lungs, mediastinum, bony thorax or soft tissues. XR/XR chest 2V IMPRESSION: No acute disease.
[2021-11-26 08:07] VITALS: BP 152/84; PULSE 69; RESP 18; TEMP 37.2; O2SAT 96; BMI 41.2
--- NOTE | 2021-11-26 08:07 | ECG_ITS ---
Test Reason : chest pain Blood Pressure : / mmHG Vent. Rate : 062 BPM Atrial Rate : 062 BPM P-R Int : 154 ms QRS Dur : 078 ms QT Int : 394 ms P-R-T Axes : 028 030 048 degrees QTc Int : 399 ms Normal sinus rhythm Normal ECG When compared to the previous EKG of No significant changes seen Referred By: Generic ED Physician Electronically Signed By:Ritesh Blackmon
--- NOTE | 2021-11-26 08:42 | ED_ITS ---
HPI - Chest Pain General Chief Complaint: Chest Pain Stated Complaint: rib pain and chest pain cough Time Seen by Provider: 11/26/21 08:21 Source: patient Mode of arrival: ambulatory History of Present Illness HPI narrative: 56-year-old male with a past medical history of asthma, KANWAL on CPAP, HTN, presenting to the ED complaining of substernal and bilateral lower chest pains with dry cough x1 week. Reports pain worse with coughing, movement, and deep breathing. Denies fever, chills, SOB, pedal edema/calf pain, abdominal pain, nausea/vomiting, recent travel, history of clots, cigarette smoking MD complaint: chest pain Onset (ago): week(s) Related Data Home Medications Medication Instructions Recorded Confirmed albuterol sulfate 90 mcg/actuation 2 puff PO Q6H PRN 09/09/21 09/09/21 aerosol inhaler (ProAir HFA) lisinopril 40 mg tablet 40 mg PO DAILY 09/09/21 09/09/21 Previous Rx's Medication Instructions Recorded acetaminophen 500 mg tablet 1,000 mg PO QID PRN #14 tab 04/28/21 (Tylenol Extra Strength) cyclobenzaprine 10 mg tablet 10 mg PO Q8H #10 tab 04/28/21 oxycodone 5 mg tablet 5 mg PO BID PRN #10 tab 04/28/21 calcium polycarbophil 625 mg 1,250 mg PO BID 30 Days #120 tab 09/29/21 tablet (Fiber Therapy (ca polycarbophil)) pantoprazole 40 mg tablet,delayed 40 mg PO BID 30 Days #60 tab 09/29/21 release (Protonix) Allergies Allergy/AdvReac Type Severity Reaction Status Date / Time No Known Allergies Allergy Unknown unknown Verified 09/29/21 14:38 [NO KNOWN ALLERGIES] seasonal Allergy Runny Nose Uncoded 09/25/20 11:50 Review of Systems Review of Systems: Constitutional: No Fever, No Chills, No Fatigue, No Malaise ENT/Mouth: No Ear Pain, No sore throat, No Rhinorrhea, No Swallowing Difficulty Eyes: No Eye Pain, No Swelling, No Redness Cardiovascular: + Chest Pain, No SOB, No Dyspnea on Exertion, No Orthopnea, No Edema, No Palpitations Respiratory: + Cough, No Sputum, No Wheezing, No Smoke Exposure, No Dyspnea Gastrointestinal: No Nausea, No Vomiting, No Diarrhea, No Constipation, No Abdominal pain Genitourinary: No Dysuria, No Hematuria, No Urinary Incontinence,No Flank Pain, No Urinary Flow Changes Musculoskeletal: No joint pain, No Myalgias, No Joint Swelling Skin: No Skin Lesions, No rash Neuro: No Weakness, No Numbness, No Paresthesias, No Dizziness, No Headache Yes all other systems are reviewed and are negative [facility] Past Medical History Attestation statement: The following information was validated with the patient. Medical History Asthma BPH (benign prostatic hyperplasia) HTN (hypertension) Low back pain KANWAL on CPAP Surgical History H/O colonoscopy H/O esophagogastroduodenoscopy History of nasal surgery Previous back surgery Family History Family History Family/Other No pertinent past medical history Social History Social History Alcohol intake: current Alcohol intake frequency: does not drink Patient Tobacco Use Status: Never used Tobacco Advance Directives: No Advance Directives Information Provided: No Physical Exam Vital Signs: Vital Signs: Last Vital Signs Temp 99.0 F 11/26/21 08:07 Pulse 69 11/26/21 08:07 Resp 18 11/26/21 08:07 BP 152/84 H 11/26/21 08:07 Pulse Ox 96 11/26/21 08:07 BMI result Body Mass Index 41.2 Const: General: cooperative, healthy appearing and no acute distress Orientation/consciousness: patient oriented x3 Limitations: no limitations HENMT: Head: Yes normal to inspection Ears: hearing grossly normal bilaterally General nose exam: Normal external nose present Face and sinus: Yes normal facial exam Eyes: General: appearance normal, both eyes and all related structures EOM: EOMs intact bilaterally Neck: Neck: Yes normal visual inspection and Yes no meningeal signs Chest: Other: bilateral lower rib ttp, no deformity/erythema/ecchymosis. No crepitus Chest palpation & inspection: tenderness Resp: Effort & Inspection: normal respiratory effort and no respiratory distress Auscultation: clear to auscultation bilaterally, no rales, no rhonchi and no wheezes Cardio: Rate: regular rate Heart sounds: S1 normal heart sound present and S2 normal heart sound present GI: Inspection: Yes normal to inspection Palpation (GI): Soft to palpation, nontender, no guarding and not rigid : General: Yes no CVA tenderness Back/Spine/Pelvis: Back: no CVA tenderness Skin: Rashes: no rashes Wounds: no wounds Neuro: General: patient oriented x3 and no meningeal signs Gait exam ( Neuro): Normal gait present Extrem: General: Yes normal to inspection and Yes no pedal edema Course Course Course Narrative: 934--labs unremarkable, troponin negative, D-dimer negative, COVID-19 negative. XR chest 2V IMPRESSION: No acute disease. >> results discussed with patient including worrisome signs and symptoms and strict return precautions and need close follow-up with PCP/Cardiology. Patient verbalized understanding and feel safe for discharge home MDM - Chest Pain MDM Narrative Medical decision making narrative: 56-year-old male with a past medical history of asthma, KANWAL on CPAP, HTN, p resenting to the ED complaining of substernal and bilateral lower chest pains with dry cough x1 week. On exam vital signs stable, NAD/nontoxic, lungs CTA, bilateral rib tenderness reproducible, no crepitus, no CVAT, no pedal edema/calf tenderness. Concern for atypical ACS vs PE vs costochondritis/MSK pain vs pneumonia vs viral syndrome/COVID-19. Low concern for cholecystitis, renal stone/pyelo Plan: EKG, labs, CXR, COVID-19 testing, re-evaluate Medical Records Data Attestation: I reviewed the patient's medical records. Lab Data Attestation: I reviewed the patient's lab results. Result diagrams: 11/26/21 08:50 11/26/21 08:50 Labs: Lab Results 11/26/21 11/26/21 11/26/21 Range/Units 08:50 08:50 08:50 WBC 5.7 (4.8-10.8) X10*3/uL RBC 5.14 (4.60-5.80) X10*6/uL Hgb 15.4 (14.0-18.0) g/dl Hct 46.3 (42.0-52.0) % MCV 90.1 (80.0-98.0) fL MCH 30.0 (27.0-33.0) pg MCHC 33.3 (31.0-36.0) g/dl RDW 13.2 (11.0-16.0) % Plt Count 222 (160-400) X10*3/uL MPV 10.7 (9.4-12.4) fL Immature Gran % (Auto) 0.7 H (0.0-0.4) % Neut % (Auto) 61.6 (45-73) % Lymph % (Auto) 28.3 (20-40) % [place] % (Auto) 7.6 (2-11) % Eos % (Auto) 1.4 (0-4) % Baso % (Auto) 0.4 (0-2) % Lymph # (Auto) 1.6 (1.2-4.9) X10*3/uL [place] # (Auto) 0.4 (0.1-1.2) X10*3/uL Eos # (Auto) 0.1 (0.0-0.4) X10*3/uL Baso # (Auto) 0.0 (0.0-0.2) X10*3/uL Abs Immat Gran (auto) 0.04 H (0.00-0.03) X10*3/uL Absolute Neuts (auto) 3.5 (2.0-8.3) x10*3/uL Absolute Nucleated RBC 0.000 (0.0-0.012) X10*3/uL Nucleated RBC % (auto) 0.0 (0.0-0.2) /100WBC D-Dimer High Sensitivty NG/ML Sodium 138 (135-145) mmol/L Potassium 4.8 (3.3-5.1) mmol/L Chloride 105 (96-108) mmol/L Carbon Dioxide 29 (22-29) mmol/L Anion Gap 9 L (12-20) BUN 17 H (9-16) mg/dL Creatinine 0.85 (0.5-1.4) mg/dL Estim Creat Clear Calc 124.6 Estimated GFR > 60 Random Glucose 95 (60-115) mg/dL Calcium 9.1 (8.4-10.2) mg/dL Total Bilirubin 0.7 (0.0-1.0) mg/dL Direct Bilirubin 0.2 (0.0-0.5) mg/dL AST 21 (5-37) U/L ALT 25 (0-40) U/L Alkaline Phosphatase 96 (39-117) U/L Troponin I High Sens < 3.5 (<3.5-35.0) ng/L B-Natriuretic Peptide 46 (<100) pg/mL Total Protein 7.1 (6.5-8.0) g/dL Albumin 3.8 (3.5-5.0) g/dL COVID-19 (ESTEFANI) (Negative) COVID-19 Clin Com 11/26/21 11/26/21 Range/Units 08:50 08:50 WBC (4.8-10.8) X10*3/uL RBC (4.60-5.80) X10*6/uL Hgb (14.0-18.0) g/dl Hct (42.0-52.0) % MCV (80.0-98.0) fL MCH (27.0-33.0) pg MCHC (31.0-36.0) g/dl RDW (11.0-16.0) % Plt Count (160-400) X10*3/uL MPV (9.4-12.4) fL Immature Gran % (Auto) (0.0-0.4) % Neut % (Auto) (45-73) % Lymph % (Auto) (20-40) % [place] % (Auto) (2-11) % Eos % (Auto) (0-4) % Baso % (Auto) (0-2) % Lymph # (Auto) (1.2-4.9) X10*3/uL [place] # (Auto) (0.1-1.2) X10*3/uL Eos # (Auto) (0.0-0.4) X10*3/uL Baso # (Auto) (0.0-0.2) X10*3/uL Abs Immat Gran (auto) (0.00-0.03) X10*3/uL Absolute Neuts (auto) (2.0-8.3) x10*3/uL Absolute Nucleated RBC (0.0-0.012) X10*3/uL Nucleated RBC % (auto) (0.0-0.2) /100WBC D-Dimer High Sensitivty < 150 NG/ML Sodium (135-145) mmol/L Potassium (3.3-5.1) mmol/L Chloride (96-108) mmol/L Carbon Dioxide (22-29) mmol/L Anion Gap (12-20) BUN (9-16) mg/dL Creatinine (0.5-1.4) mg/dL Estim Creat Clear Calc Estimated GFR Random Glucose (60-115) mg/dL Calcium (8.4-10.2) mg/dL Total Bilirubin (0.0-1.0) mg/dL Direct Bilirubin (0.0-0.5) mg/dL AST (5-37) U/L ALT (0-40) U/L Alkaline Phosphatase (39-117) U/L Troponin I High Sens (<3.5-35.0) ng/L B-Natriuretic Peptide (<100) pg/mL Total Protein (6.5-8.0) g/dL Albumin (3.5-5.0) g/dL COVID-19 (ESTEFANI) Negative (Negative) COVID-19 Clin Com See Note ECG Data ECG #1: Attestation: I personally reviewed and interpreted this ECG as follows: ECG interpretation date: 11/26/21 ECG interpretation time: 08:07 Interpretation: EKG normal sinus rhythm at a rate of 62. Pr interval 154. QTC 399. No STEMI/nonischemic Discharge Plan Discharge Clinical Impression: Atypical chest pain Patient Disposition: Home, Self-Care Instructions: Chest Pain (DC) Additional Instructions: Your blood work and chest x-ray were reassuring today in the ED you tested negative for COVID-19 Please follow-up with her doctor and Cardiology If your symptoms persist or worsen, pain becomes unbearable more constant, your shortness of breath, wheezing, or swelling in your legs please return to the emergency department Prescriptions: No Action cyclobenzaprine 10 mg tablet 10 mg PO Q8H Qty: 10 0RF acetaminophen [Tylenol Extra Strength] 500 mg tablet 1,000 mg PO QID PRN (Reason: fever or pain) Qty: 14 0RF oxycodone 5 mg tablet 5 mg PO BID PRN (Reason: pain) Qty: 10 0RF albuterol sulfate [ProAir HFA] 90 mcg/actuation HFA aerosol inhaler 2 puff PO Q6H PRN (Reason: Shortness Of Breath Or Wheezing) 0RF lisinopril 40 mg Tablet 40 mg PO DAILY 0RF pantoprazole [Protonix] 40 mg tablet,delayed release (DR/EC) 40 mg PO BID 30 Days Qty: 60 6RF calcium polycarbophil [Fiber Therapy (ca polycarboph)] 625 mg tablet 1,250 mg PO BID 30 Days Qty: 120 6RF Referrals: Ritesh Blackmon MD [Physician] - 5 days Kristen Cruz MD [Primary Care Provider] - 2 days
[2021-11-26 09:00] LABS: MANUAL DIFF FLAG NO
[2021-11-26 09:01] LABS: Basophils Percent Auto 0.4 % (0-2); Eosinophils Absolute Auto 0.1 X10*3/uL (0.0-0.4); Eosinophils Percent Auto 1.4 % (0-4); Hematocrit 46.3 % (42.0-52.0); Hemoglobin 15.4 g/dl (14.0-18.0); Imm Gran Abs Auto 0.04 X10*3/uL (0.00-0.03); Imm Gran Pct Auto 0.7 % (0.0-0.4); Lymphocytes Absolute Auto 1.6 X10*3/uL (1.2-4.9); Lymphocytes Percent Auto 28.3 % (20-40); Mean Corpuscular HGB Conc 33.3 g/dl (31.0-36.0); Mean Corpuscular Volume 90.1 fL (80.0-98.0); Mean Platelet Volume 10.7 fL (9.4-12.4); Monocytes Absolute Auto 0.4 X10*3/uL (0.1-1.2); Monocytes Percent Auto 7.6 % (2-11); Neutrophils Absolute Auto 3.5 x10*3/uL (2.0-8.3); Neutrophils Percent Auto 61.6 % (45-73); Platelet Count 222 X10*3/uL (160-400); Red Blood Count 5.14 X10*6/uL (4.60-5.80); Red Cell Distribution Width 13.2 % (11.0-16.0); White Blood Count 5.7 X10*3/uL (4.8-10.8)
[2021-11-26 09:08] LABS: D Dimer High Sensitivity < 150 NG/ML
[2021-11-26 09:18] LABS: Alanine Aminotransferase 25 U/L (0-40); Albumin Level 3.8 g/dL (3.5-5.0); Alkaline Phosphatase 96 U/L (39-117); Anion Gap 9 (12-20); Aspartate Amino Transferase 21 U/L (5-37); Bilirubin Direct 0.2 mg/dL (0.0-0.5); Bilirubin Total 0.7 mg/dL (0.0-1.0); Blood Urea Nitrogen 17 mg/dL (9-16); Calcium 9.1 mg/dL (8.4-10.2); Carbon Dioxide 29 mmol/L (22-29); Chloride 105 mmol/L (96-108); Creatinine Clr Calc Pharmacy 124.6; Estimated Glomerular Filt Rate > 60; Glucose Random 95 mg/dL (60-115); Potassium 4.8 mmol/L (3.3-5.1); Sodium 138 mmol/L (135-145); Total Protein 7.1 g/dL (6.5-8.0)
[2021-11-26 09:19] LABS: COVID-19 Test Negative (Negative)
[2021-11-26 09:23] LABS: B Type Natriuretic Peptide 46 pg/mL (<100); Troponin-I High Sensitivity < 3.5 ng/L (<3.5-35.0)
== END 2021-11-26 11:05 | disposition home or self-care (01) ==
PROVIDERS: Physician Assistant; Emergency Provider Emergency Medicine; PCP Family Medicine
DX: R07.89 Other chest pain (principal); Z20.822 Contact with and (suspected) exposure to COVID-19; I10 Essential (primary) hypertension; J45.909 Unspecified asthma, uncomplicated; Z79.899 Other long term (current) drug therapy
CPT/HCPCS: 36415; 71046; 80048; 80076; 83880; 84484; 85025; 85379; 87635; 93005; 99283

== ENCOUNTER 2021-12-21 07:30 | Outpatient (REF) | payer MEDICAID, SELFPAY ==
[2021-12-21 08:33] LABS: Estimated Average Glucose 105 mg/dL; Hemoglobin A1C 151.5698 umol/L; Hemoglobin A1c % 5.3 %
[2021-12-21 08:48] LABS: Cholesterol 166 mg/dL; HDL Cholesterol 33 mg/dL; LDL Cholesterol Calculated 92 mg/dl; Triglycerides 208 mg/dL
[2021-12-21 09:13] LABS: Vitamin D 25-OH Total 10.3 ng/mL (>30)
== END 2021-12-21 07:31 | disposition home or self-care (01) ==
LOC: HO.LAB 07:30
PROVIDERS: PCP Family Medicine; Visit Provider Family Medicine
DX: I10 Essential (primary) hypertension (principal)
CPT/HCPCS: 36415; 80061; 82306; 83036

== ENCOUNTER 2022-03-03 13:09 | Emergency (ER) | payer MEDICAID, SELFPAY ==
[2022-03-03 13:11] VITALS: BP 136/80; PULSE 61; RESP 18; TEMP 37; O2SAT 98; BMI 40.7
--- NOTE | 2022-03-03 15:02 | ED_ITS ---
HPI - General Adult General Chief complaint: Eye Problems Stated complaint: Eyes burning/Vision blurry Time Seen by Provider: 03/03/22 15:02 Source: patient Mode of arrival: ambulatory Limitations: no limitations History of Present Illness HPI narrative: Patient is a 56 year old male presenting to the emergency department today with irritation to both eyes. Patient states that the tops of his eyes have felt like they are burning for the last month and 2 weeks ago, his PCP gave him anti histamine drops for his eyes but they aren't helping. Patient denies any dizziness, lightheadedness, abdominal pain, nausea, vomiting, fever, chills, current blurry vision, double vision, loss of vision, chest pain, difficulty breathing, shortness of breath, back pain, night sweats, pain with urination, increased urinary frequency, increased urinary urgency, blood in his urine or stool, syncope or a near syncopal episode, recent trauma or falls, bowel incontinence, bladder incontinence, bowel retention, bladder retention, or any other complaints at this time. Onset (ago): month(s) (1) Location: eyes Radiation: non-radiation Severity: mild Severity scale (1-10): 1 Quality: burning Pain Consistency: intermittent Relieving factors: none Exacerbating factors: none Associated symptoms: denies other symptoms Treatments prior to arrival: none Related Data Home Medications Medication Instructions Recorded Confirmed albuterol sulfate 90 mcg/actuation 2 puff PO Q6H PRN Shortness Of 09/09/21 09/09/21 aerosol inhaler (ProAir HFA) Breath Or Wheezing lisinopril 40 mg tablet 40 mg PO DAILY 09/09/21 09/09/21 Previous Rx's Medication Instructions Recorded acetaminophen 500 mg tablet 1,000 mg PO QID PRN fever or pain 04/28/21 (Tylenol Extra Strength) #14 tabs cyclobenzaprine 10 mg tablet 10 mg PO Q8H Muscle spasm #10 tabs 04/28/21 oxycodone 5 mg tablet 5 mg PO BID PRN pain #10 tabs 04/28/21 calcium polycarbophil 625 mg 1,250 mg PO BID 30 days #120 tabs 09/29/21 tablet (Fiber Therapy (ca polycarbophil)) pantoprazole 40 mg tablet,delayed 40 mg PO BID 30 days #60 tabs 09/29/21 release (Protonix) Allergies Allergy/AdvReac Type Severity Reaction Status Date / Time No Known Allergies Allergy Unknown unknown Verified 09/29/21 14:38 [NO KNOWN ALLERGIES] seasonal Allergy Runny Nose Uncoded 09/25/20 11:50 Review of Systems Constitutional: Constitutional: Reports no additional constitutional complaints, Denies chills, Denies fever(s) and Denies night sweats Eyes: Eyes: Reports no additional eye complaints, Denies blurry vision, Denies change in vision, Denies diplopia, Denies eye discharge, Reports dry eyes, Repor ts irritation and Denies loss of vision ENT: Denies dizziness Cardiovascular: Cardiovascular: Reports no additional cardiovascular complaints, Denies chest pain, Denies lightheadedness, Denies Loss of Consciousness and Denies dyspnea Respiratory: Respiratory: Reports no additional respiratory complaints and Denies dyspnea Gastrointestinal: Gastrointestinal: Reports no additional gastrointestinal complaints, Denies abdominal pain, Denies melena, Denies hematochezia, Denies change in bowel habits and Denies change in stool character Genitourinary: Genitourinary: Reports no additional male genitourinary complaints, Denies hematuria, Denies oliguria, Denies difficulty urinating, Denies dysuria, Denies urinary frequency, Denies urinary hesitancy, Denies urinary incontinence and Denies urinary urgency Musculoskeletal: Musculoskeletal: Reports no additional musculoskeletal complaints, Denies numbness and Denies tingling Neurologic: Denies dizziness, Denies loss of vision, Denies numbness and Denies tingling Psychiatric: Psychiatric: Reports no additional psychiatric complaints Endocrine: Endocrine: Reports no additional endocrine complaints Hematologic/Lymphatic: Hematologic/Lymphatic: Reports no additional hematologic/lymphatic complaints Allergic/Immunologic: Allergic/Immunologic: Reports no additional allergic/immunologic complaints [facility] Past Medical History Attestation statement: The following information was validated with the patient. Source: old records reviewed Medical History Asthma BPH (benign prostatic hyperplasia) HTN (hypertension) Low back pain KANWAL on CPAP Surgical History H/O colonoscopy H/O esophagogastroduodenoscopy History of nasal surgery Previous back surgery Family History Family History Family/Other No pertinent past medical history Social History Social History Alcohol intake: current Alcohol intake frequency: does not drink Patient Tobacco Use Status: Never used Tobacco Advance Directives: No Advance Directives Information Provided: No Physical Exam ED Vital Signs: Vital Signs - 24 hr 03/03/22 13:11 Temperature 98.6 F Pulse Rate 61 Respiratory Rate 18 Blood Pressure 136/80 Pulse Oximetry 98 Oxygen Delivery Method Room Air BMI result Body Mass Index 40.7 Const General: cooperative, no acute distress, alert and awake Nutritional Appearance: well nourished Orientation/consciousness: patient oriented x3 Limitations: no limitations HENMT Head: Yes normal to inspection and Yes atraumatic Ears: hearing grossly normal bilaterally and external ears normal General nose exam: Normal external nose present, no nasal discharge noted and no epistaxis Face and sinus: Yes normal facial exam, No abrasion and No laceration Mouth: Normal oral and palatal mucosa present, no drooling and no muffled voice Eyes General: appearance normal, both eyes and all related structures Periorbital: periorbital findings normal Eyelids: Yes eyelids normal Conjunctivae: conjunctivae normal Pupils: Equal, round and reactive pupils present EOM: EOMs intact bilaterally Neck Neck: Yes normal visual inspection, Yes full ROM and Yes no lymphadenopathy Chest Chest palpation & inspection: normal inspection of the chest Resp Effort & Inspection: normal respiratory effort and able to speak in complete sentences Auscultation: clear to auscultation bilaterally Cardio Rate: regular rate Rhythm: regular rhythm GI Inspection: Yes normal to inspection Neuro General: patient oriented x3 and moves all extremities Cranial nerves: Yes Equal, round and reactive pupils present Cognition (Neuro): normal cognition Motor exam (neuro): 5/5 motor strength present throughout Sensory Exam: Normal double simultaneous stimulation for sensation Coordination: [id number] test normal Extrem General: Yes normal to inspection, Yes full ROM and Yes capillary refill normal Psych Appearance: grossly normal Mental Status: mental status grossly normal Affect: normal affect Attitude: cooperative Thought process: Normal thought process present Thought content: Normal thought content present Insight: Good insight present (Psych) Medical Decision Making MDM Narrative Medical decision making narrative: Patient is a 56 year old male presenting to the emergency department today with bilateral eye irritation. Patient's physical exam was unremarkable, including a normal HEENT exam. I explained my physical exam findings to the patient. I answered all questions asked by the patient. I explained to the patient that given his description of symptoms and negative physical examination, he is likely experiencing dry eye and he should follow up with an currency exchange specialist. I stressed the importance of the patient taking his medication as prescribed. I stressed the importance of the patient following up with his primary care provider and an currency exchange specialist. I stressed the importance of the patient returning to the emergency department immediately if his symptoms were to worsen or if he were to develop any dizziness, shortness of breath, difficulty breathing, chest pain, blurry vision, loss of vision, nausea, vomiting, abdominal pain, fever, chills, back pain, or any other complaints. Patient verbalized agreement and understanding with this treatment plan and discharge. Differential Diagnosis Differential Diagnosis: dry eye, allergic rhinitis, bilateral eye irritation Medical Records Medical records reviewed: Yes I reviewed the patient's medical records. Discharge Plan Discharge Clinical Impression: Dry eye Patient Disposition: Home, Self-Care Instructions: How to Use Eye Drops (ED) Additional Instructions: Follow up with your primary care provider and an currency exchange specialist. Return to the emergency department immediately if your symptoms worsen or if you develop any dizziness, shortness of breath, difficulty breathing, chest pain, blurry vision, loss of vision, nausea, vomiting, abdominal pain, fever, chills, back pain, or any other complaints. Prescriptions: No Action cyclobenzaprine 10 mg tablet 10 mg PO Q8H Qty: 10 0RF acetaminophen [Tylenol Extra Strength] 500 mg tablet 1,000 mg PO QID PRN (Reason: fever or pain) Qty: 14 0RF oxycodone 5 mg tablet 5 mg PO BID PRN (Reason: pain) Qty: 10 0RF albuterol sulfate [ProAir HFA] 90 mcg/actuation HFA aerosol inhaler 2 puff PO Q6H PRN (Reason: Shortness Of Breath Or Wheezing) lisinopril 40 mg Tablet 40 mg PO DAILY pantoprazole [Protonix] 40 mg tablet,delayed release (DR/EC) 40 mg PO BID 30 Days Qty: 60 6RF calcium polycarbophil [Fiber Therapy (ca polycarboph)] 625 mg tablet 1,250 mg PO BID 30 Days Qty: 120 6RF Referrals: Marlo Mcghee [Physician] - Kristen Cruz MD [Primary Care Provider] - Print Language: Mauritian
== END 2022-03-03 15:13 | disposition home or self-care (01) ==
PROVIDERS: Emergency Provider Emergency Medicine; PCP Family Medicine
DX: H04.123 Dry eye syndrome of bilateral lacrimal glands (principal); H57.13 Ocular pain, bilateral; I10 Essential (primary) hypertension
CPT/HCPCS: 99282; 99283

== ENCOUNTER 2022-07-06 10:19 | Outpatient (REF) | payer MEDICAID, SELFPAY ==
[2022-07-06 13:03] LABS: Prostate Specific Antigen 3.05 ng/mL (<0.05-4.0)
== END 2022-07-06 10:20 | disposition home or self-care (01) ==
LOC: HO.LAB 10:19
PROVIDERS: PCP Family Medicine; Visit Provider Urology
DX: Z12.5 Encounter for screening for malignant neoplasm of prostate (principal); R97.20 Elevated prostate specific antigen [PSA]
CPT/HCPCS: 36415; 84153

== ENCOUNTER 2023-04-14 12:24 | Emergency (ER) | payer MEDICAID, SELFPAY ==
--- NOTE | ~2023-04-14 | XR_ITS ---
EXAMINATION: XR LUMBAR SPINE XR SACRUM/COCCYX CLINICAL INFORMATION: Lumbar back pain. COMPARISON: 04/28/2021 TECHNIQUE: AP and lateral views of the lumbar spine. AP and lateral views of the sacrum and coccyx. FINDINGS: Lumbar spine: There are 5 nonrib-bearing lumbar vertebral bodies. Relative straightening of the lumbar lordosis. Vertebral body heights and intervertebral disc spaces are maintained. Short pedicles at L4 and L5. There is pronounced facet hypertrophy at L4-L5 and L5-S1. Sacrum/coccyx: The sacrum is partially obscured by overlying bowel contents. Sacroiliac joints and pubic symphysis are intact. No displaced fracture. Scattered pelvic phleboliths. XR/XR lumbar spine 2-3V IMPRESSION: No acute abnormality.
--- NOTE | ~2023-04-14 | CT_ITS ---
EXAMINATION: CT ABDOMEN AND PELVIS WITHOUT CONTRAST CLINICAL INFORMATION: Right flank pain. COMPARISON: Abdominal ultrasound 11/24/2017 TECHNIQUE: Multidetector volumetric imaging was performed from the superior aspect of the liver through the pubic symphysis. Sagittal and coronal reformatted images were obtained on the technologist's workstation. This CT examination was performed using dose optimization techniques as appropriate, variously including the following: *Automated exposure control *Adjustment of mA and/or kV according to patient size (this includes techniques or standardized protocols for targeted exams where dose is matched to indication/reason for exam; i.e. extremities or head) *Use of iterative reconstruction technique DLP: 1086 mGy-cm FINDINGS: LUNG BASES: The visualized lung bases are unremarkable. LIVER, GALLBLADDER, AND BILIARY TREE: The noncontrast liver is normal in size and contour. No biliary ductal dilatation is present. The gallbladder is unremarkable with no evidence of radiopaque gallstones, gallbladder wall thickening, or obvious pericholecystic inflammatory changes. PANCREAS: Unremarkable. SPLEEN: Unremarkable. ADRENAL GLANDS: Unremarkable. KIDNEYS AND URETERS: The kidneys are symmetric in size. No renal or ureteral calculus. No hydronephrosis or hydroureter. BLADDER: Unremarkable. GASTROINTESTINAL TRACT: Small and large bowel loops are of normal caliber. No small bowel obstruction. Appendix is within normal limits. ABDOMINAL WALL: No significant hernia is appreciated. LYMPH NODES: No bulky abdominal or pelvic lymphadenopathy. VASCULAR: Normal caliber abdominal aorta. PELVIC VISCERA: Enlarged prostate gland. OSSEOUS STRUCTURES: No destructive bone lesions. CT/CT abdomen pelvis wo IV con IMPRESSION: No nephrolithiasis or hydronephrosis.
--- NOTE | ~2023-04-14 | XR_ITS ---
EXAMINATION: XR LUMBAR SPINE XR SACRUM/COCCYX CLINICAL INFORMATION: Lumbar back pain. COMPARISON: 04/28/2021 TECHNIQUE: AP and lateral views of the lumbar spine. AP and lateral views of the sacrum and coccyx. FINDINGS: Lumbar spine: There are 5 nonrib-bearing lumbar vertebral bodies. Relative straightening of the lumbar lordosis. Vertebral body heights and intervertebral disc spaces are maintained. Short pedicles at L4 and L5. There is pronounced facet hypertrophy at L4-L5 and L5-S1. Sacrum/coccyx: The sacrum is partially obscured by overlying bowel contents. Sacroiliac joints and pubic symphysis are intact. No displaced fracture. Scattered pelvic phleboliths. XR/XR sacrum coccyx min 2V IMPRESSION: No acute abnormality.
[2023-04-14 12:43] VITALS: BP 168/97; PULSE 61; RESP 18; TEMP 36.2; O2SAT 94; BMI 40.8
--- NOTE | 2023-04-14 12:45 | ED.GENADULT ---
HPI - General Adult General Chief complaint: Back Pain/Injury Stated complaint: back pain Time Seen by Provider: 04/14/23 13:02 Related Data Home Medications Medication Instructions Recorded Confirmed albuterol sulfate 90 mcg/actuation 2 puff PO Q6H PRN Shortness Of 09/09/21 09/09/21 aerosol inhaler (ProAir HFA) Breath Or Wheezing lisinopril 40 mg tablet 40 mg PO DAILY 09/09/21 09/09/21 Previous Rx's Medication Instructions Recorded acetaminophen 500 mg tablet 1,000 mg PO QID PRN fever or pain 04/28/21 (Tylenol Extra Strength) #14 tabs cyclobenzaprine 10 mg tablet 10 mg PO Q8H Muscle spasm #10 tabs 04/28/21 oxycodone 5 mg tablet 5 mg PO BID PRN pain #10 tabs 04/28/21 calcium polycarbophil 625 mg 1,250 mg PO BID 30 days #120 tabs 09/29/21 tablet (Fiber Therapy (ca polycarbophil)) pantoprazole 40 mg tablet,delayed 40 mg PO BID #180 tabs 06/01/22 release Allergies Allergy/AdvReac Type Severity Reaction Status Date / Time No Known Allergies Allergy Unknown unknown Verified 04/14/23 12:43 [NO KNOWN ALLERGIES] [facility] Past Medical History Medical History Asthma BPH (benign prostatic hyperplasia) HTN (hypertension) Low back pain KANWAL on CPAP Surgical History H/O colonoscopy H/O esophagogastroduodenoscopy History of nasal surgery Previous back surgery Family History Family History Family/Other No pertinent past medical history Social History Social History Alcohol intake: current Alcohol intake frequency: does not drink Patient Tobacco Use Status: Never used Tobacco Advance Directives: No Physical Exam ED Vital Signs: Vital Signs - 24 hr 04/14/23 12:43 Temperature 97.2 F Pulse Rate 61 Respiratory Rate 18 Blood Pressure 168/97 H Pulse Oximetry 94 Oxygen Delivery Method Room Air BMI result Body Mass Index 40.8 Course Course Course Narrative: This is an RME: Additional HPI, ROS, PE not included below will be deferred to primary provider. This is a 33-yyrh-yvg-male, hx of GERD, asthma, HTN, and history of herniated disc requiring back surgeries, presenting to the ER in wheelchair, with complaints of back pain x 2 days. Patient reports that 2 days ago he was lifting tires. He states he did not initially have pain however has progressively had worsening pain in his back. Admits to having some numbness and tingling down into his right leg. He states that he has had some pain with urination and urinary frequency. Denies hematuria. No urinary or bowel incontinence. No saddle anesthesia. Of note, pt did not take his BP meds today - blood pressure 168/97. Patient has tenderness palpation along the lumbar spine right lumbar musculature. Plan: UA, lumbar & sacrum/cocyx xrays ordered. Medications Administered Discontinued Medications Generic Name Dose Route Start Last Admin Trade Name Freq PRN Reason Stop Dose Admin Oxycodone HCl 5 mg 04/14/23 13:31 04/14/23 13:40 Oxycodone Hcl Immed Release 5 Mg Tablet PO 04/14/23 13:32 5 mg ONCE ONE Administration Medical Decision Making Lab Data Labs: Lab Results 04/14/23 Range/Units 12:55 Urine Color Yellow Urine Appearance Clear Urine pH 5.5 (5.0-9.0) Ur Specific [place] 1.020 (1.005-1.025) Urine Protein Trace (Neg-Trace) mg/dL Urine Glucose (UA) Negative (Negative) mg/dL Urine Ketones Negative (Negative) mg/dL Urine Blood Trace H (Negative) Urine Nitrite Negative (Negative) Ur Leukocyte Esterase Negative (Negative) Urine RBC 0-2 (0-2) /HPF Urine WBC 0-5 (0-5) /HPF Ur Squamous Epith Cells 0-2 (0-2) /HPF Urine Bacteria None Seen (None Seen) Hyaline Casts 0-2 (0-2) /LPF Discharge Plan Discharge Prescriptions: No Action pantoprazole 40 mg tablet,delayed release (DR/EC) 40 mg PO BID Qty: 180 0RF cyclobenzaprine 10 mg tablet 10 mg PO Q8H Qty: 10 0RF acetaminophen [Tylenol Extra Strength] 500 mg tablet 1,000 mg PO QID PRN (Reason: fever or pain) Qty: 14 0RF oxycodone 5 mg tablet 5 mg PO BID PRN (Reason: pain) Qty: 10 0RF albuterol sulfate [ProAir HFA] 90 mcg/actuation HFA aerosol inhaler 2 puff PO Q6H PRN (Reason: Shortness Of Breath Or Wheezing) lisinopril 40 mg Tablet 40 mg PO DAILY calcium polycarbophil [Fiber Therapy (ca polycarboph)] 625 mg tablet 1,250 mg PO BID 30 Days Qty: 120 6RF
[2023-04-14 13:07] LABS: Appearance Urine Clear; Color Urine Yellow; Glucose Urine UA Negative (Negative); Leukocyte Esterase Urine Negative (Negative); Nitrite Urine Negative (Negative); PH 5.5 (5.0-9.0); UMIC TRIGGER UACC YES; Urine Blood Trace (Negative); Urine Ketones Negative (Negative); Urine Protein Trace mg/dL (Neg-Trace)
[2023-04-14 13:21] LABS: Bacteria Urine None Seen (None Seen); Hyaline Casts Urine 0-2 /LPF (0-2); RBC Urine 0-2 /HPF (0-2); Squamous Epithelial Cell Urine 0-2 /HPF (0-2); WBC Urine 0-5 /HPF (0-5)
[2023-04-14] MEDS: oxyCODONE HCl Immed Release 5 MG TABLET PO (13:40)
--- NOTE | 2023-04-14 15:02 | ED.BACK ---
HPI - Back Pain/Injury General Chief Complaint: Back Pain/Injury Stated Complaint: back pain Time Seen by Provider: 04/14/23 13:02 Source: patient Mode of arrival: ambulatory Limitations: no limitations History of Present Illness HPI Narrative: 56-year-old male with a past medical history of asthma, KANWAL on CPAP, HTN,?with chronic back pain s/p surgery to lumbar spine November 2022 presenting to the ER with complaints of right lower back pain that is radiating to his right groin/right lower leg since yesterday worse today. Reports that he did lift a few tires the day before yesterday although he was not having pain up until yesterday. he does report when he was urinating yesterday the back pain was radiating to the groin and making it painful although he does not actually have pain upon urination he reports. He reports he has a history of high blood pressure did not take his hypertensive medications today. He denies any fevers, chills, dizziness, headaches, neck pain/ stiffness, trouble swallowing or breathing, nausea or vomiting, abdominal pain, dysuria, hematuria, abnormal penile discharge, saddle anesthesias, recent falls or trauma, history of cancer, recent immobilization, IV drug use, rashes or any other symptoms complaints or concerns at this time. MD elicited complaint: back pain Pertinent past history: prior back pain Onset (ago): hour(s) (today) Timing: constant Severity: mild Similar Symptoms Previously: Yes Quality: stabbing and spasming Location: lumbar spine Radiation: right upper leg Exacerbating factors: movement, walking and lifting Relieving factors: none Context: while lifting and turning/twisting Associated symptoms: denies other symptoms Treatments prior to arrival: other ( He has tried multiple [id number] medications although no symptomatic relief.) Work related injury: No Related Data Home Medications Medication Instructions Recorded Confirmed albuterol sulfate 90 mcg/actuation 2 puff PO Q6H PRN Shortness Of 09/09/21 09/09/21 aerosol inhaler (ProAir HFA) Breath Or Wheezing lisinopril 40 mg tablet 40 mg PO DAILY 09/09/21 09/09/21 Previous Rx's Medication Instructions Recorded acetaminophen 500 mg tablet 1,000 mg PO QID PRN fever or pain 04/28/21 (Tylenol Extra Strength) #14 tabs cyclobenzaprine 10 mg tablet 10 mg PO Q8H Muscle spasm #10 tabs 04/28/21 oxycodone 5 mg tablet 5 mg PO BID PRN pain #10 tabs 04/28/21 calcium polycarbophil 625 mg 1,250 mg PO BID 30 days #120 tabs 09/29/21 tablet (Fiber Therapy (ca polycarbophil)) pantoprazole 40 mg tablet,delayed 40 mg PO BID #180 tabs 06/01/22 release cyclobenzaprine 10 mg tablet 10 mg PO Q8H #14 tabs 04/14/23 naproxen 500 mg tablet 500 mg PO BID PRN pain #14 tabs 04/14/23 oxycodone 5 mg tablet 5 mg PO Q6H PRN pain #14 tabs 04/14/23 Allergies Allergy/AdvReac Type Severity Reaction Status Date / Time No Known Allergies Allergy Unknown unknown Verified 04/14/23 12:43 [NO KNOWN ALLERGIES] Review of Systems Review of Systems: Constitutional : No trauma, No Weight loss, No Fever, No Chills, ENT/Mouth : No Hearing loss, No Ear Pain, No Nasal Congestion, No Sinus Pain, No Hoarseness, No sore throat, No Rhinorrhea, No Swallowing Difficulty Cardiovascular : No Chest Pain, No SOB Respiratory : No Cough, No Dyspnea Gastrointestinal : No Nausea, No Vomiting, No Diarrhea, No abdominal Pain, No Hematochezia, No Melena Genitourinary : No Dysuria, No Urinary Frequency, No Hematuria, No Urinary or Bowel Incontinence/retention Musculoskeletal : + Back pain, No neck pain, No joint stiffness, No joint swelling Skin : No Skin Lesions, No rash or signs of infection Neuro : No Weakness, + radiation, No Numbness, No Paresthesias, No headache, no loss of bowel or bladder incontinence, no saddle anesthesia, Focal weakness Denies history of IV drug usage. Yes all other systems are reviewed and are negative [facility] Past Medical History Attestation statement: The following information was validated with the patient. Source: old records reviewed and nursing notes reviewed Medical History Asthma BPH (benign prostatic hyperplasia) HTN (hypertension) Low back pain KANWAL on CPAP Surgical History H/O colonoscopy H/O esophagogastroduodenoscopy History of nasal surgery Previous back surgery Family History Family History Family/Other No pertinent past medical history Social History Social History Alcohol intake: current Alcohol intake frequency: does not drink Patient Tobacco Use Status: Never used Tobacco Advance Directives: No Physical Exam Vital Signs: Vital Signs: Last Vital Signs Temp 97.2 F 04/14/23 12:43 Pulse 61 04/14/23 12:43 Resp 18 04/14/23 12:43 BP 168/97 H 04/14/23 12:43 Pulse Ox 94 04/14/23 12:43 O2 Del Method Room Air 04/14/23 12:43 BMI result Body Mass Index 40.8 vital signs have been reviewed as normal and appeared to be correct. Blood pressure normal. Heart rate normal. Respiration rate normal. Temperature normal. Oxygen saturation normal. Appearance: Alert. Oriented X3. No acute distress. Head: Normal external exam. Normocephalic. Atraumatic. No Mason signs noted. No raccoon eyes noted Eyes: PERRLA. EOMI. Conjunctiva and sclera normal. Eyelids normal. ENT: EAC normal. TM's Normal. Pharynx normal. Uvula midline. Moist mucous membranes. No trismus noted. No drooling noted. No muffled voice noted. Neck: Normal inspection. Neck supple. FROM. No adenopathy. Thyroid Normal. No meningeal signs. No neck mass noted. CVS: Normal heart rate and rhythm. Heart sound normal. No murmurs noted. Pulses normal throughout. Respiratory: No respiratory distress. Painless inspiration. Breath sounds normal. No wheezes/rales/rhonchi noted. Chest nontender. No accessory muscle usage noted or decreased air movement noted. Abdomen: Soft and nontender. Bowel sounds normal in all 4 quadrants. No distention noted. No organomegaly noted. No visible injury noted. Back: No CVA tenderness. Full range of motion noted. No obvious deformities, or edema. Mild para-spinal muscular tenderness from lumbar region to coccyx. Full ROM in back and lower extremities. 5/5 strength hip extension/flexion, abduction, adduction. Mild Lumbar pain with hip flexion against resistance. Straight leg raise test negative on right; Straight leg raise test negative on left; Reflexes normal ankle and knee bilaterally; EHL motor strength normal bilaterally. No rashes/lesion/induration/fluctuance or signs infection noted. Skin: Skin warm and dry. Normal skin color. Normal skin turgor. No rashes/lesions/lacerations noted. Extremities: No lower extremity edema. Extremities exhibit normal range of motion. Extremities nontender. Neuro: Oriented X 3. No motor deficit. No sensory deficit. Reflexes normal. Patient has a normal steady gait. Course Course Course Narrative: This is an RME: Additional HPI, ROS, PE not included below will be deferred to primary provider. This is a [id number]-male, hx of GERD, asthma, HTN, and history of herniated disc requiring back surgeries, presenting to the ER in wheelchair, with complaints of back pain x 2 days. Patient reports that 2 days ago he was lifting tires. He states he did not initially have pain however has progressively had worsening pain in his back. Admits to having some numbness and tingling down into his right leg. He states that he has had some pain with urination and urinary frequency. Denies hematuria. No urinary or bowel incontinence. No saddle anesthesia. Of note, pt did not take his BP meds today - blood pressure 168/97. Patient has tenderness palpation along the lumbar spine right lumbar musculature. Plan: UA, lumbar & sacrum/cocyx xrays ordered. Reevaluation(s) Reevaluation #1: Pt c likely muscular pain, but could be herniated disc. Neuro exam shows no deficits. Not c/w AAA/epidural abscess/dissection.No high risk Hx (Incont, fever, immunosupp, recent surgery/LP, coag, signif trauma, wt loss, puls mass, hx/o Ca, TB, or IVDU) to warrant MRI today. Not c/w Pyelo/UTI/kidney stone/spinal fx. Not cauda equina syndrome. Due to patient reporting right pain radiating to his groin a UA was obtained negative for UTI although did reveal some hematuria microscopic. And a CT scan abdomen pelvis with IV contrast ordered patient was also given [address] scan of abdomen pelvis without IV contrast negative revealed chronic changes and lumbar spine/ sacrum / coccyx x-ray within normal limits no acute processes only chronic changes. Patient reports mild improvement. He denies any cardiac related complaints. Therefore at this time patient will be discharged with symptomatic treatment instructions to take his hypertensive medication as prescribed at home and to return if any new or worsening symptoms. Patient understands agrees with this plan. Time: 15:10 Medications Administered Discontinued Medications Generic Name Dose Route Start Last Admin Trade Name Flora PRN Reason Stop Dose Admin Oxycodone HCl 5 mg 04/14/23 13:31 04/14/23 13:40 Oxycodone Hcl Immed Release 5 Mg Tablet PO 04/14/23 13:32 5 mg ONCE ONE Administration Medical Decision Making Medical Decision Making MDM Narrative: see course Differential Diagnosis Differential Diagnoses: The differential diagnosis associated with the presentation includes see course Lab Data [facility] Lab Attestation statement: I reviewed the patient's lab results. Labs: Lab Results 04/14/23 Range/Units 12:55 Urine Color Yellow Urine Appearance Clear Urine pH 5.5 (5.0-9.0) Ur Specific [place] 1.020 (1.005-1.025) Urine Protein Trace (Neg-Trace) mg/dL Urine Glucose (UA) Negative (Negative) mg/dL Urine Ketones Negative (Negative) mg/dL Urine Blood Trace H (Negative) Urine Nitrite Negative (Negative) Ur Leukocyte Esterase Negative (Negative) Urine RBC 0-2 (0-2) /HPF Urine WBC 0-5 (0-5) /HPF Ur Squamous Epith Cells 0-2 (0-2) /HPF Urine Bacteria None Seen (None Seen) Hyaline Casts 0-2 (0-2) /LPF Independent Interpretation I performed an independent interpretation of an: Plain X-Ray ( lumbar spine and sacral/coccyx x-ray reviewed by myself agreeable rate as report this is my independent interpretation no acute findings only chronic changes) and CT Scan ( CT scan of abdomen pelvis without IV contrast reviewed by myself agreeable rate as report this is my independent interpretation no acute findings only chronic changes) Radiology Impression Discussion of test interpretation with radiology: I have reviewed the radiologist's reading. Radiologist Impression: FINDINGS: LUNG BASES: The visualized lung bases are unremarkable.? LIVER, GALLBLADDER, AND BILIARY TREE: The noncontrast liver is normal in size and contour. No biliary ductal dilatation is present. The gallbladder is unremarkable with no evidence of radiopaque gallstones, gallbladder wall thickening, or obvious pericholecystic inflammatory changes.? PANCREAS: Unremarkable.? SPLEEN: Unremarkable.? ADRENAL GLANDS: Unremarkable.? KIDNEYS AND URETERS: The kidneys are symmetric in size. No renal or ureteral calculus. No hydronephrosis or hydroureter.? BLADDER: Unremarkable.? GASTROINTESTINAL TRACT: Small and large bowel loops are of normal caliber. No small bowel obstruction. Appendix is within normal limits. ABDOMINAL WALL: No significant hernia is appreciated.? LYMPH NODES: No bulky abdominal or pelvic lymphadenopathy. VASCULAR: Normal caliber abdominal aorta. PELVIC VISCERA: Enlarged prostate gland. OSSEOUS STRUCTURES: No destructive bone lesions. CT/CT abdomen pelvis wo IV con IMPRESSION: No nephrolithiasis or hydronephrosis. FINDINGS: Lumbar spine: There are 5 nonrib-bearing lumbar vertebral bodies. Relative straightening of the lumbar lordosis. Vertebral body heights and intervertebral disc spaces are maintained. Short pedicles at L4 and L5. There is pronounced facet hypertrophy at L4-L5 and L5-S1. Sacrum/coccyx: The sacrum is partially obscured by overlying bowel contents. Sacroiliac joints and pubic symphysis are intact. No displaced fracture. Scattered pelvic phleboliths. XR/XR sacrum coccyx min 2V IMPRESSION: No acute abnormality. ? External Record Review External record reviewed: Inpatient record, Office record, Outpatient record, Prior outpatient labs, Prior outpatient radiology, Primary care record and Outside ED record all prior labs/ imaging/ EKG and notes that are accessible and our system reviewed by myself Tests considered The following testing was considered but not selected: labs although not indicated as patient denies any other complaints Prescription Management I considered prescription management with: Pain Medication Chronic Conditions Patient?s care impacted by: Hypertension and Other Social Determinants Patient?s care significantly limited by Social Determinants of Health including: Low income and Other Social Determinant of Health Discharge Plan Discharge Clinical Impression: Lumbar radiculopathy, Strain of lumbar region Patient Disposition: Home, Self-Care Instructions: Lumbar Radiculopathy (ED), Lower Back Exercises (ED) Prescriptions: New naproxen 500 mg tablet 500 mg PO BID PRN (Reason: pain) Qty: 14 0RF oxycodone 5 mg tablet 5 mg PO Q6H PRN (Reason: pain) Qty: 14 0RF Rx Instructions: Partial Fill upon patient request. cyclobenzaprine 10 mg tablet 10 mg PO Q8H Qty: 14 0RF No Action pantoprazole 40 mg tablet,delayed release (DR/EC) 40 mg PO BID Qty: 180 0RF cyclobenzaprine 10 mg tablet 10 mg PO Q8H Qty: 10 0RF acetaminophen [Tylenol Extra Strength] 500 mg tablet 1,000 mg PO QID PRN (Reason: fever or pain) Qty: 14 0RF oxycodone 5 mg tablet 5 mg PO BID PRN (Reason: pain) Qty: 10 0RF albuterol sulfate [ProAir HFA] 90 mcg/actuation HFA aerosol inhaler 2 puff PO Q6H PRN (Reason: Shortness Of Breath Or Wheezing) lisinopril 40 mg Tablet 40 mg PO DAILY calcium polycarbophil [Fiber Therapy (ca polycarboph)] 625 mg tablet 1,250 mg PO BID 30 Days Qty: 120 6RF Referrals: Kristen Cruz MD [Primary Care Provider] - 2 days Print Language: Jordanian
[2023-04-14 15:25] VITALS: BP 122/69; PULSE 59; RESP 20; TEMP 36.6; O2SAT 98
== END 2023-04-14 15:39 | disposition home or self-care (01) ==
PROVIDERS: Physician Assistant Medical; Emergency Provider Emergency Medicine; PCP Family Medicine
DX: M54.16 Radiculopathy, lumbar region (principal); S39.012A Strain of muscle, fascia and tendon of lower back, initial encounter; X50.0XXA Overexertion from strenuous movement or load, initial encounter; I10 Essential (primary) hypertension; Y93.9 Activity, unspecified; Y92.9 Unspecified place or not applicable; Y99.9 Unspecified external cause status
CPT/HCPCS: 72100; 72220; 74176; 81001; 99283; 99284

== ENCOUNTER 2023-04-19 14:27 | Emergency (ER) | payer MEDICAID, SELFPAY ==
[2023-04-19 14:35] VITALS: BP 176/107; PULSE 78; RESP 18; TEMP 36; O2SAT 97; BMI 41.3
--- NOTE | 2023-04-19 14:38 | ED.GENADULT ---
HPI - General Adult General Chief complaint: Back Pain/Injury Stated complaint: Back Pain No Injury Source: patient and RN notes reviewed Mode of arrival: ambulatory Limitations: no limitations History of Present Illness HPI narrative: 57-year-old male presents for evaluation of lower back pain. He was seen here 5 days ago, had a significant workup and was discharged with cyclobenzaprine, oxycodone naproxen. He reports he has been taking all the medications and his symptoms have not improved The patient has follow-up with his PCP on Tuesday. He reports having had lumbar surgery in November and has a follow-up with his neurosurgeon next month Denies any weakness, bladder or bowel incontinence or retention He is able to ambulate at baseline with his cane Related Data Home Medications Medication Instructions Recorded Confirmed albuterol sulfate 90 mcg/actuation 2 puff PO Q6H PRN Shortness Of 09/09/21 09/09/21 aerosol inhaler (ProAir HFA) Breath Or Wheezing lisinopril 40 mg tablet 40 mg PO DAILY 09/09/21 09/09/21 Previous Rx's Medication Instructions Recorded acetaminophen 500 mg tablet 1,000 mg PO QID PRN fever or pain 04/28/21 (Tylenol Extra Strength) #14 tabs cyclobenzaprine 10 mg tablet 10 mg PO Q8H Muscle spasm #10 tabs 04/28/21 oxycodone 5 mg tablet 5 mg PO BID PRN pain #10 tabs 04/28/21 calcium polycarbophil 625 mg 1,250 mg PO BID 30 days #120 tabs 09/29/21 tablet (Fiber Therapy (ca polycarbophil)) pantoprazole 40 mg tablet,delayed 40 mg PO BID #180 tabs 06/01/22 release cyclobenzaprine 10 mg tablet 10 mg PO Q8H #14 tabs 04/14/23 naproxen 500 mg tablet 500 mg PO BID PRN pain #14 tabs 04/14/23 oxycodone 5 mg tablet 5 mg PO Q6H PRN pain #14 tabs 04/14/23 dexamethasone 4 mg tablet 4 mg PO BID #6 tabs 04/19/23 Allergies Allergy/AdvReac Type Severity Reaction Status Date / Time No Known Allergies Allergy Unknown unknown Verified 04/19/23 14:35 [NO KNOWN ALLERGIES] Review of Systems Constitutional: Constitutional: Reports as per HPI, Denies chills, Denies fatigue, Denies fever(s) and Denies headache(s) ENT: Denies headache(s) Cardiovascular: Cardiovascular: Denies chest pain and Denies dyspnea Respiratory: Respiratory: Denies cough and Denies dyspnea Gastrointestinal: Gastrointestinal: Denies abdominal pain, Denies constipation and Denies vomiting Genitourinary: Genitourinary: Denies difficulty urinating and Denies dysuria Musculoskeletal: Musculoskeletal: Reports back pain, Denies numbness, Reports radiating pain into limb and Reports tingling Neurologic: Denies headache(s), Denies focal weakness, Denies numbness and Reports tingling Endocrine: Endocrine: Denies fatigue PMFSH Past Medical History Medical History Asthma BPH (benign prostatic hyperplasia) HTN (hypertension) Low back pain KANWAL on CPAP Surgical History H/O colonoscopy H/O esophagogastroduodenoscopy History of nasal surgery Previous back surgery Family History Family History Family/Other No pertinent past medical history Social History Social History Alcohol intake: current Alcohol intake frequency: does not drink Patient Tobacco Use Status: Never used Tobacco Physical Exam ED Const General: healthy appearing, comfortable, no acute distress, alert and awake Nutritional Appearance: well nourished Orientation/consciousness: patient oriented x3 HENMT Head: Yes normocephalic and Yes atraumatic Eyes Eyelids: Yes eyelids normal Conjunctivae: conjunctivae normal Sclerae: sclerae normal Corneas: corneas normal Pupils: Equal, round and reactive pupils present EOM: EOMs intact bilaterally Neck Neck: Yes full ROM Resp Effort & Inspection: normal respiratory effort, able to speak in complete sentences and not labored Back/Spine/Pelvis Other: Tenderness to the lumbar region, straight leg raise positive on room. No vertebral tenderness. No step-offs or deformities. Skin General skin exam: no rashes or lesions noted and elasticity normal Neuro General: patient oriented x3 Cranial nerves: Yes Equal, round and reactive pupils present and Yes Bilaterally intact EOM present Cognition (Neuro): normal cognition Extrem Other: Moving all extremities well without any obvious deformities Course Course Course Narrative: RME- 57 year old male presents for evaluation of lower back pain. He was seen here 5 days ago. He had x-rays of the lumbar spine, sacrum and abdominal pelvic CT scan. He was discharged home with naproxen, oxycodone and cyclobenzaprine. Reports his pain has not improved Medical Decision Making Medical Decision Making MDM Narrative: Patient a fairly extensive workup within the last week for back pain, there are no warning signs for cauda equina syndrome. Will trial a short course of steroids and he will follow-up with his PCP. Differential Diagnosis Differential Diagnoses: The differential diagnosis associated with the presentation includes Back pain Lumbar radiculopathy Sciatica Muscle spasm Discharge Plan Discharge Clinical Impression: Acute lumbar radiculopathy Patient Disposition: Home, Self-Care Instructions: Lumbar Radiculopathy (ED) Additional Instructions: Your symptoms are most likely related to a pinched nerve in her back. Take the dexamethasone twice daily for the next 3 days You may continue using your prescribed pain medication You may also use [id number] lidocaine patches and warm compresses Follow-up with your primary doctor Prescriptions: New dexamethasone 4 mg tablet 4 mg PO BID Qty: 6 0RF No Action pantoprazole 40 mg tablet,delayed release (DR/EC) 40 mg PO BID Qty: 180 0RF cyclobenzaprine 10 mg tablet 10 mg PO Q8H Qty: 10 0RF acetaminophen [Tylenol Extra Strength] 500 mg tablet 1,000 mg PO QID PRN (Reason: fever or pain) Qty: 14 0RF oxycodone 5 mg tablet 5 mg PO BID PRN (Reason: pain) Qty: 10 0RF albuterol sulfate [ProAir HFA] 90 mcg/actuation HFA aerosol inhaler 2 puff PO Q6H PRN (Reason: Shortness Of Breath Or Wheezing) lisinopril 40 mg Tablet 40 mg PO DAILY naproxen 500 mg tablet 500 mg PO BID PRN (Reason: pain) Qty: 14 0RF oxycodone 5 mg tablet 5 mg PO Q6H PRN (Reason: pain) Qty: 14 0RF Rx Instructions: Partial Fill upon patient request. cyclobenzaprine 10 mg tablet 10 mg PO Q8H Qty: 14 0RF calcium polycarbophil [Fiber Therapy (ca polycarboph)] 625 mg tablet 1,250 mg PO BID 30 Days Qty: 120 6RF
--- OUTSIDE RECORDS SUMMARY | 2023-04-19 14:45 | XMS_ITS | Continuity of Care Document ---
Author Name Unknown Organization [facility] Address [address] [place] [id number] Care Team Providers Care Padder Cushion Name Role Phone Nancy GONZALEZ, Kristen Primary Care Physician [place] [facility] [place]): [place] 11/11/19 [facility] [address] [place] [id number]- [facility] Attending Physician: Admtr, Saira Admitting Physician: Admtr, [id number] Referring Physician: Admtr, [id number] Allergies, Adverse Reactions, Alerts Substance Reaction Severity Status Other Environmental Allergy grass, runny nose and wate ry eyes Active Medications Ambien 5 mg oral tablet 1 tablet = 5 mg, By Mouth, Daily at bedtime, PRN as needed for insomnia, 0 Refills, Maintenance, 02/15/19 8:19:11 EDT, Tablet Start Date: 02/15/19 Status: Ordered escitalopram 10 mg oral tablet 1 tablet = 10 mg, By Mouth, Daily at bedtime, 0 Refills, Maintenance, 02/15/19 8:38:34 EDT Start Date: 02/15/19 Status: Ordered hydrochlorothiazide 25 mg oral tablet 25 mg, 1, tablet, By Mouth, Daily at bedtime, Refills 0, Maintenance, 02/15/19 8:42:00 EDT Start Date: 02/15/19 Status: Ordered
== END 2023-04-19 14:53 | disposition home or self-care (01) ==
PROVIDERS: Emergency Provider Emergency Medicine Emergency Medical Services; PCP Family Medicine
DX: M54.16 Radiculopathy, lumbar region (principal); M54.50 Low back pain, unspecified; I10 Essential (primary) hypertension; J45.909 Unspecified asthma, uncomplicated; Z79.899 Other long term (current) drug therapy
CPT/HCPCS: 99282; 99283

== ENCOUNTER 2023-10-12 08:29 | Outpatient (REF) | payer MEDICAID, SELFPAY ==
[2023-10-12 09:41] LABS: Estimated Average Glucose 103 mg/dL; Hemoglobin A1c % 5.2 % (<6.0)
[2023-10-12 10:14] LABS: Alanine Aminotransferase 24 U/L (0-40); Albumin Level 3.9 g/dL (3.5-5.0); Alkaline Phosphatase 90 U/L (39-117); Anion Gap 10 (12-20); Aspartate Amino Transferase 20 U/L (5-37); Bilirubin Total 0.6 mg/dL (0.0-1.0); Blood Urea Nitrogen 17 mg/dL (9-16); Calcium 9.1 mg/dL (8.4-10.2); Carbon Dioxide 27 mmol/L (22-29); Chloride 104 mmol/L (96-108); Cholesterol 171 mg/dL (<200); Estimated Glomerular Filt Rate > 60; Glucose Random 96 mg/dL (60-115); HDL Cholesterol 35 mg/dL (>40); LDL Cholesterol Calculated 112 mg/dL (<100); Potassium 4.4 mmol/L (3.3-5.1); Sodium 137 mmol/L (135-145); Total Protein 7.7 g/dL (6.5-8.0); Triglycerides 124 mg/dL (<150)
[2023-10-12 10:16] LABS: Reflex LDLD? No
[2023-10-12 10:32] LABS: TSH reflex Free T4 2.05 uIU/mL (0.32-4.0)
== END 2023-10-12 08:30 | disposition home or self-care (01) ==
LOC: HO.LAB 08:29
PROVIDERS: PCP Family Medicine; Visit Provider Family Medicine
DX: E66.01 Morbid (severe) obesity due to excess calories (principal); I10 Essential (primary) hypertension; Z68.39 Body mass index [BMI] 39.0-39.9, adult
CPT/HCPCS: 36415; 80053; 80061; 83036; 84443

== ENCOUNTER 2023-11-16 10:16 | Outpatient (REF) | payer MEDICAID, SELFPAY ==
[2023-11-16 11:13] LABS: MANUAL DIFF FLAG NO
[2023-11-16 12:00] LABS: Basophils Absolute Auto 0.1 X10*3/uL (0.0-0.2); Basophils Percent Auto 0.5 % (0-2); Eosinophils Absolute Auto 0.3 X10*3/uL (0.0-0.4); Eosinophils Percent Auto 2.9 % (0-4); Hematocrit 48.9 % (42.0-52.0); Hemoglobin 16.2 g/dl (14.0-18.0); Imm Gran Abs Auto 0.07 X10*3/uL (0.00-0.03); Imm Gran Pct Auto 0.7 % (0.0-0.4); Lymphocytes Absolute Auto 2.2 X10*3/uL (1.2-4.9); Lymphocytes Percent Auto 22.1 % (20-40); Mean Corpuscular HGB Conc 33.1 g/dl (31.0-36.0); Mean Corpuscular Hemoglobin 29.6 pg (27.0-33.0); Mean Corpuscular Volume 89.4 fL (80.0-98.0); Mean Platelet Volume 10.6 fL (9.4-12.4); Monocytes Absolute Auto 0.7 X10*3/uL (0.1-1.2); Monocytes Percent Auto 6.9 % (2-11); Neutrophils Absolute Auto 6.6 x10*3/uL (2.0-8.3); Neutrophils Percent Auto 66.9 % (45-73); Platelet Count 259 X10*3/uL (160-400); Red Blood Count 5.47 X10*6/uL (4.60-5.80); Red Cell Distribution Width 13.3 % (11.0-16.0); White Blood Count 9.9 X10*3/uL (4.8-10.8)
[2023-11-16 12:27] LABS: Alanine Aminotransferase 25 U/L (0-40); Albumin Level 4.3 g/dL (3.5-5.0); Alkaline Phosphatase 94 U/L (39-117); Anion Gap 14 (12-20); Aspartate Amino Transferase 20 U/L (5-37); Bilirubin Total 0.7 mg/dL (0.0-1.0); Blood Urea Nitrogen 19 mg/dL (9-16); Calcium 9.3 mg/dL (8.4-10.2); Carbon Dioxide 28 mmol/L (22-29); Chloride 103 mmol/L (96-108); Estimated Glomerular Filt Rate > 60; Glucose Random 87 mg/dL (60-115); Potassium 4.5 mmol/L (3.3-5.1); Sodium 140 mmol/L (135-145); Total Protein 8.2 g/dL (6.5-8.0)
== END 2023-11-16 10:17 | disposition home or self-care (01) ==
LOC: HO.LAB 10:16
PROVIDERS: PCP Family Medicine; Visit Provider Nurse Practitioner
DX: Z01.818 Encounter for other preprocedural examination (principal); D12.6 Benign neoplasm of colon, unspecified; K52.9 Noninfective gastroenteritis and colitis, unspecified; K21.9 Gastro-esophageal reflux disease without esophagitis
CPT/HCPCS: 36415; 80053; 85025; 99212

== ENCOUNTER 2023-11-16 10:16 | Outpatient (AMB) | payer MEDICAID, SELFPAY ==
[2023-11-16 10:23] VITALS: BP 173/93; PULSE 63; BMI 41.3
--- NOTE | 2023-11-16 10:23 | A.OFFVIS_ITS ---
Intake Vital Signs 11/16/23 10:23 Height 5 ft 9 in Weight 279 lb 15.793 oz BMI 41.3 BP 173/93 H Blood Pressure Location Lt brachial Position Sitting Pulse 63 Intake Visit Reasons: F/U Discuss [place] Screening Intake Note: Patient presents to in office visit today to discuss colonoscopy screening. CC: Patient reports doing well and denies having any GI concerns today. 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 He tolerated the procedures well and is agreeable to this.? He is aware to tell any 1st degree relatives that they should be screened no later than age 45 as they may have a higher genetic risk. His diarrhea remains well controlled on his fiber therapy, and his GERD is controlled on his protonix 40mg bid. He remains satisfed with his GI regimen. ROV 6 mos (2) GERD (gastroesophageal reflux diseas e): ?Code(s): K21.9 - Gastro-esophageal reflux disease without esophagitis (3) Chronic diarrhea: ?Comment: CONTROLLED WITH FIBER THERAPY ?Code(s): K52.9 - Noninfective gastroenteritis and colitis, unspecified ? ? ? Medications:?Refilled pantoprazole (Prot maik) 40 mg? PO BID 30 days 60 tabs 6RF K21.9 - Gastro-eso phageal reflux dis ease without esoph agitis ? calcium polycarbop hil (Fiber Therapy (ca polycarbophil )) 1,250 mg (2 x 625 mg) PO BID 30 day s 120 tabs 6RF D12.6 - Benign nino plasm of colon, un specified, K21.9 - Gastro-esophageal reflux disease wi thout esophagitis, K52.9 - Noninfect bonita gastroenteriti s and colitis, uns pecified ? TODAY'S VISIT His last procedure was in 2020 so he is here to discuss his repeat. He denies any change in his medical history or any problems with the prep for procedure in the past. He denies any trouble with anesthesia or sedation. No ID problems He denies any cardiac problems and has KANWAL and asthma that is controlled. He had very large TA's in 2021. He is agreeable to going for repeat labs so that we can best sedate. [facility] Medical History KANWAL on CPAP BPH (benign prostatic hyperplasia) Low back pain Asthma HTN (hypertension) Surgical History History of nasal surgery Previous back surgery H/O esophagogastroduodenoscopy H/O colonoscopy Family History Family/Other No pertinent past medical history Social History Alcohol intake: current Alcohol intake frequency: does not drink Patient Tobacco Use Status: Never used Tobacco Review of Systems Const Denies fatigue, Denies fever(s), Denies night sweats, Denies poor appetite and Denies weight loss ENT Reports Normal hearing present, Denies dysphagia, Denies odynophagia, Denies throat swelling and Denies tongue swelling Card Reports no additional complaints Resp Reports no additional complaints GI Details: Denies abdominal pain, Denies melena, Denies bloating, Denies hematochezia, Denies constipation, Denies GI cramping, Denies dysphagia, Denies excessive flatus, Denies early satiety, Reports heartburn, Denies diarrhea, Denies nausea, Denies odynophagia, Denies vomiting and Denies hematemesis Skin/Breast Denies pruritus, Denies lesions, Denies rash and Denies jaundice Neuro Reports Normal hearing present and Denies Abnormal speech present Endo Denies fatigue Aller/Immun Denies throat swelling and Denies tongue swelling Physical Exam Vital Signs: Last Vital Signs Pulse 63 02/21/24 10:23 BP 173/93 H 11/16/23 10:23 BMI result Body Mass Index 41.3 Const General: cooperative, no acute distress, well developed and well groomed Nutritional Appearance: well nourished and obese Orientation/consciousness: oriented to person, oriented to place and oriented to time Limitations: No language barrier HEENT Head: Yes normocephalic and Yes atraumatic Eyes General: appearance normal, both eyes and all related structures Pupils: Equal, round and reactive pupils present Neck Neck: Yes normal visual inspection and Yes no lymphadenopathy Thyroid: Thyroid normal Chest Other: gynecomastia Resp Effort & Inspection: normal respiratory effort and able to speak in complete sentences Auscultation: clear to auscultation bilaterally Cardio Rate: regular rate Rhythm: regular rhythm Heart sounds: Normal, physiologic split S2 sound present Peripheral pulses: radial pulses present and posterior tibial pulses present GI Inspection: No distended, Yes Abdominal panniculus present, Yes obesity and Yes striae Palpation (GI): Soft to palpation, nontender, no guarding, not rigid and No hepatosplenomegaly present Percussion: Yes normal to percussion Auscultation: normal bowel sounds Rectal Exam - Male: Yes deferred Skin General skin exam: no rashes or lesions noted, turgor normal, skin not dry, no jaundice, No spider nevi and no striae Rashes: no rashes Nails: normal Neuro General: oriented to person, oriented to place and oriented to time Cranial nerves: Yes Equal, round and reactive pupils present and Yes Normal hea ring present Speech: No Abnormal speech present Extrem General: Yes normal to inspection, No clubbing, No cyanosis and No edema Psych Appearance: grossly normal and well kempt Mental Status: mental status grossly normal Speech and movement: Normal speech and movement present Affect: normal affect Attitude: cooperative Thought process: Normal thought process present and not confabulating Thought content: Normal thought content present Insight: Limited insight present (Psych) Judgement: Limited judgement present (Psych) Assessment & Plan Assessment & Plan (1) Pre-op examination: Code(s): Z01.818 - Encounter for other preprocedural examination (2) Tubular adenoma of colon: Comment: 2018 scoped 3 but prep was poor, 2020 large TA's repeat 2 years 2022 Code(s): D12.6 - Benign neoplasm of colon, unspecified (3) Chronic diarrhea: Comment: CONTROLLED WITH FIBER THERAPY Code(s): K52.9 - Noninfective gastroenteritis and colitis, unspecified (4) GERD (gastroesophageal reflux disease): Code(s): K21.9 - Gastro-esophageal reflux disease without esophagitis Plan His last procedure was in 2020 so he is here to discuss his repeat. He is uncertain if he is still taking his fiber or his acid reflux medications but since he does not seem to be having any troubles I will press the issue. These may have been taken over by his primary care provider. He denies any change in his medical history or any problems with the prep for procedure in the past. He denies any trouble with anesthesia or sedation. No ID problems He denies any cardiac problems and has KANWAL and asthma that is controlled. He had very large TA's in 2021. He is agreeable to going for repeat labs so that we can best sedate. Orders: Orders Comprehensive Met. Panel Today D12.6 - Benign neoplasm of colon, unspecified, K21.9 - Gastro-esophageal reflux disease without esophagitis, K52.9 - Noninfective gastroenteritis and colitis, unspecified, Z01.818 - Encounter for other preprocedural examination Complete Blood Count Auto Diff Today D12.6 - Benign neoplasm of colon, unspecified, K21.9 - Gastro-esophageal reflux disease without esophagitis, K52.9 - Noninfective gastroenteritis and colitis, unspecified, Z01.818 - Encounter for other preprocedural examination Colonoscopy - GI Use Only Today D12.6 - Benign neoplasm of colon, unspecified, K21.9 - Gastro-esophageal reflux disease without esophagitis, K52.9 - Noninfective gastroenteritis and colitis, unspecified, Z01.818 - Encounter for other preprocedural examination Medications: New bisacodyl (Dulcolax (bisacodyl)) 10 mg (2 x 5 mg) PO BEDTIME 2 days 4 tabs 0RF peg 3350-electrolytes 236-22.74-6.74 -5.86 gram (Golytely) until fecal effluent is clear; do not exceed a total volume of 2,000 mL 240 mL PO Q10M 1 day 4,000 mL 0RF Z12.11 - Encounter for screening for malignant neoplasm of colon Coding Level of Care Code New Pt Level 3 (07145) Diagnoses Pre-op examination Z01.818 Tubular adenoma of colon D12.6 Chronic diarrhea K52.9 GERD (gastroesophageal reflux disease) K21.9
== END 2023-11-16 10:58 | disposition home or self-care (01) ==
PROVIDERS: PCP Family Medicine; Visit Provider Nurse Practitioner
DX: Z01.818 Encounter for other preprocedural examination (principal); D12.6 Benign neoplasm of colon, unspecified; K52.9 Noninfective gastroenteritis and colitis, unspecified; K21.9 Gastro-esophageal reflux disease without esophagitis
CPT/HCPCS: 99213

== ENCOUNTER 2023-12-12 10:49 | Outpatient (REF) | payer MEDICAID, SELFPAY ==
--- NOTE | ~2023-12-12 | XR_ITS ---
EXAMINATION: XR CHEST CLINICAL INFORMATION: Wheezing COMPARISON: Chest radiograph 11/26/2021 TECHNIQUE: 2 views of the chest were obtained. FINDINGS: No significant abnormality is noted involving the heart, lungs, mediastinum, bony thorax or soft tissues. XR/XR chest 2V IMPRESSION: Unremarkable examination.
== END 2023-12-12 10:50 | disposition home or self-care (01) ==
LOC: HO.HHCX 10:49
PROVIDERS: Visit Provider Family Medicine
DX: R06.2 Wheezing (principal)
CPT/HCPCS: 71046

== ENCOUNTER 2024-02-27 13:14 | Outpatient (AMB) | payer MEDICAID, SELFPAY ==
[2024-02-27 13:21] VITALS: PULSE 67; O2SAT 97; BMI 41.3
--- NOTE | 2024-02-27 13:21 | A.OFFVIS_ITS ---
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 Was briefly hospitalized. Since then he has had issues with breathing and also cough. The patient also suffers from sleep apnea and does use a CPAP. The last few months he has had a hard time with breathing. Back in November he had worsening cough and shortness of breath. The patient did have a chest x-ray which we personally reviewed without any acute disease. He also had a CT scan of the abdomen back in 04/14/2023 with lung windows at least about a 4th of a lung could be visualized. He did have some minimal degree of atelectasis at the bases and also some scarring. Likely the results of the COVID. The patient does feel better. He does have an Advair inhaler and also Spiriva HandiHaler. He does use it regularly although I do not see them on the medication this. He also has a Ventolin rescue inhaler. He seems to be doing better this time. Will try simplify his regimen by switching over to Trelegy. That way he has 1 maintenance inhaler and then his rescue therapy. In addition to that the patient does have underlying allergies. Will start him on Singulair. He will continue his respiratory therapy and will follow-up in 4-6 months. If the patient develops any worsening symptoms prior to that he will call. For the next visit he will also bring his CPAP so we can adjusted if necessary. [facility] Medical History (Updated 02/27/24 @ 22:16 by Justino Villasenor MD) KANWAL on CPAP BPH (benign prostatic hyperplasia) Low back pain Asthma HTN (hypertension) Surgical History History of nasal surgery Previous back surgery H/O esophagogastroduodenoscopy H/O colonoscopy Family History Family/Other No pertinent past medical history Social History Alcohol intake: current Alcohol intake frequency: does not drink Patient Tobacco Use Status: Never used Tobacco Review of Systems Const Denies fatigue, Denies fever(s), Denies night sweats, Denies poor appetite and Denies weight loss ENT Reports Normal hearing present Card Reports no additional complaints and Reports dyspnea on exertion Resp Reports cough and Reports dyspnea on exertion GI Details: Denies abdominal pain Skin/Breast Denies rash Neuro Reports Normal hearing present and Denies Abnormal speech present Endo Denies fatigue Physical Exam Vital Signs: Last Vital Signs Pulse 67 02/27/24 13:21 Pulse Ox 97 02/27/24 13:21 Oxygen Delivery Method Room Air 02/27/24 13:21 BMI result Body Mass Index 41.3 HEENT Head: Yes normocephalic and Yes atraumatic Neck Neck: Yes normal visual inspection and Yes no lymphadenopathy Chest Other: gynecomastia Resp Effort & Inspection: normal respiratory effort and able to speak in complete sentences Auscultation: clear to auscultation bilaterally and no wheezes Cardio Rate: regular rate Rhythm: regular rhythm GI Inspection: No distended Palpation (GI): Soft to palpation Skin General skin exam: no rashes or lesions noted Neuro Cranial nerves: Yes Normal hearing present Speech: No Abnormal speech present Extrem General: No clubbing, No cyanosis and No edema Psych Appearance: grossly normal Results Reviewed Results Reviewed: [address] [address] XRay Report Signed Patient: Justino Bailey MR#: [id number] : 1965 Acct:[id number] Age/Sex: 58 / M ADM Date: 12/12/23 Loc: HO.HHCX Attending Dr: Kristen Cruz MD Ordering Physician: Kristen Cruz MD Date of Service: 12/12/23 Procedure(s): XR chest 2V Accession Number(s): [id number] cc: Kristen Cruz MD~ EXAMINATION: XR CHEST CLINICAL INFORMATION: Wheezing COMPARISON: Chest radiograph 11/26/2021 TECHNIQUE: 2 views of the chest were obtained. FINDINGS: No significant abnormality is noted involving the heart, lungs, mediastinum, bony thorax or soft tissues. XR/XR chest 2V IMPRESSION: Unremarkable examination. 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 Assessment & Plan Assessment & Plan (1) Asthma: Code(s): J45.909 - Unspecified asthma, uncomplicated Category: Medical Qualifiers: Asthma severity: moderate Asthma persistence: persistent Asthma complication type: uncomplicated Qualified Code(s): J45.40 - Moderate persistent asthma, uncomplicated (2) KANWAL on CPAP: Code(s): G47.33 - Obstructive sleep apnea (adult) (pediatric); Z99.89 - Dependence on other enabling machines and devices Category: Medical Plan stop Spiriva stop Advair start singulair qhs Start Trelegy 100 ASHELY as needed continue CPAP, should bring it in to the next visit to download and adjust F/U 4-6 months Medications: New montelukast (Singulair) 10 mg PO BEDTIME 30 days 30 tabs 11RF J45.909 - Unspecified asthma, uncomplicated cfhjvfilrcm-nbsklcezt-iwcrsara 100-62.5-25 mcg (Trelegy Ellipta) 1 inh inhalation DAILY 30 days 60 ea 11RF J44.9 - Chronic obstructive pulmonary disease, unspecified albuterol sulfate 90 mcg/actuation (Ventolin HFA) 2 puffs inhalation QID 30 days PRN 18 grams 11RF shortness of breath or wheezing Coding Level of Care Code New Pt Level 4 (69969) Diagnoses Moderate persistent asthma without complication J45.40 Asthma severity: moderate Asthma persistence: persistent Asthma complication type: uncomplicated KANWAL on CPAP G47.33; Z99.89 Time Spent (min) 37
== END 2024-02-27 13:50 | disposition home or self-care (01) ==
PROVIDERS: PCP Family Medicine; Referring Provider Family Medicine; Visit Provider Hospitalist
DX: J45.40 Moderate persistent asthma, uncomplicated (principal); G47.33 Obstructive sleep apnea (adult) (pediatric); Z99.89 Dependence on other enabling machines and devices
CPT/HCPCS: 99204

== ENCOUNTER → 2024-02-27 13:14 | Outpatient (BNVA) | payer MEDICAID, SELFPAY | PROVIDERS: PCP Family Medicine; Visit Provider Hospitalist | DX: J45.40 Moderate persistent asthma, uncomplicated (principal); G47.33 Obstructive sleep apnea (adult) (pediatric); Z99.89 Dependence on other enabling machines and devices | CPT/HCPCS: 99202 ==

== ENCOUNTER 2024-04-13 09:12 | Day surgery (SDC) | payer MEDICAID, SELFPAY ==
[2024-04-13 09:20] VITALS: BP 136/76; PULSE 63; RESP 16; TEMP 36.3; O2SAT 96
[2024-04-13 09:38] VITALS: BMI 39.2
[2024-04-13] MEDS: Lactated Ringers 1,000 ML 50 ML IVCONT (09:47)
--- NOTE | 2024-04-13 10:31 | HO.ANESPROP2 ---
FORM[facility]LY [facility], [facility] Active Problems Active Problems: All Active Problems Pre-op examination (Acute) Tubular adenoma of colon (Acute) Chronic diarrhea (Acute) GERD (gastroesophageal reflux disease) (Acute) KANWAL on CPAP (Acute) Asthma (Acute) HTN (hypertension) (Acute) Past Medical History Medical History GERD (gastroesophageal reflux disease) KANWAL on CPAP BPH (benign prostatic hyperplasia) Low back pain Asthma HTN (hypertension) Functional capacity: independent ambulation Family History Family History Family/Other No pertinent past medical history Family history of problems with anesthesia: No Surgical History Surgical History History of carpal tunnel release of both wrists History of nasal surgery Previous back surgery H/O esophagogastroduodenoscopy H/O colonoscopy History of Problems with Anesthesia: No Social History Social History Alcohol intake: current Alcohol intake frequency: does not drink Patient Tobacco Use Status: Never used Tobacco Use of substances other than those prescribed or required for medical reasons: No Are you DNR?: No Advance Directives: No Advance Directives Information Provided: Yes Meds Allergies Allergy/AdvReac Type Severity Reaction Status Date / Time No Known Allergies Allergy Unknown unknown Verified 04/13/24 09:35 [NO KNOWN ALLERGIES] Active Medications: Current Medications Lactated Ringer's (Lr) 1,000 mls @ 50 mls/hr IVCONT .Q20H MAGNOLIA Last Admin: 04/13/24 09:47 Dose: 50 mls/hr Home Medications ?Medication ?Instructions ?Recorded ?Confirmed ?Last Taken ?Type loratadine 10 mg tablet 10 mg PO QAM PRN Allergy Symptoms 11/16/23 04/13/24 Unknown History fluticasone 500 mcg-salmeterol 50 1 ea inhalation BID 04/13/24 04/13/24 Unknown History mcg/dose blistr powdr for inhalation (Advair Diskus) lisinopril 40 mg tablet 40 mg PO DAILY 04/13/24 04/13/24 Unknown History montelukast 10 mg tablet 10 mg PO BEDTIME 04/13/24 04/13/24 Unknown History (Singulair) Exam Height,Weight and Vital Signs: Height 5 ft 9 in Weight 120.293 kg Last Vital Signs Temp 97.3 F 04/13/24 09:20 Pulse 63 04/13/24 09:20 Resp 16 04/13/24 09:20 BP 136/76 04/13/24 09:20 Pulse Ox 96 04/13/24 09:20 O2 Del Method Room Air 04/13/24 09:20 Airway Mallampati Class: III TM Dist: >3cm Neck ROM: Full Heart: RRR Lungs: CTA Assessment and Plan Assessment Anesthesia Assessment: Anesthesia Plan Discussed Final Anesthetic Review Family History of Problems with Anesthesia: No History of Problems with Anesthesia: No NPO: Yes ASA Class: III Final Preanesthetic Review: Meds/Allgs Chart Reviewed, Consent Obtained/Reviewed and Anes Risks/Benef Reviewed Patient Risk: Intermediate Procedure Risk: Low Anesthetic Plan Anesthetic Plan: MAC: Disposition: Standard PACU
--- NOTE | 2024-04-13 10:34 | MHC.SHP ---
Pre-Procedural Eval Section A - 24 Hr Update-Section A only Date of Service: 04/13/24 The patient is an INPATIENT: No The patient has been examined within 24 hours of the surgical procedure. The History & Physical has been completed within 30 days and I have reviewed it.: No Section B - Complete if H&P > 30 days Chief Complaint: Surveillance for colon polyps Details of Present Illness: Colon cancer screening, history of colon polyps, diarrhea Relevant Family History (Specify if Yes): No Relevant Social History: None Present Medications: see Short Stay Collaborative assessment Medical History: Significant History (GERD, Htn, asthma) History of Previous Operations: Relevant previous surgery/procedure and date(s) (H/O colonoscopy H/O esophagogastroduodenoscopy) Allergies: Allergies Allergy/AdvReac Type Severity Reaction Status Date / Time No Known Allergies Allergy Unknown unknown Verified 04/13/24 09:35 [NO KNOWN ALLERGIES] Review of Systems Sugical H&P ROS: Negative: Constitution, Cardiovascular and Respiratory and Yes, Specify: Gastrointestinal (diarrhea) Exam Surgical H&P Exam: Normal: Heart, Normal: Lungs and Normal: Abdomen Plan Diagnosis/Plan: Unchanged I have reviewed the history and physical and performed a pertinent physical examination on my patient. No changes have occurred unless specified. Time Spent With Patient Time: Total time managing care of this patient today ____ minutes.
--- NOTE | 2024-04-13 11:20 | HO.OPN-COLON ---
Colonoscopy Operative Note Operative Note Date of Service: 04/13/24 Narrative: COLONOSCOPY TILL CECUM WITH BIOPSY AND SNARE POLYPECTOMY Pre-op diagnosis: surveillance for colon polyps. Post-op diagnosis:? Colon polyp, Diverticulosis, hemorrhoids Endoscopist:? Urbano Seymour MD Anesthesia:?MAC Consent: Indications for the procedure and potential complications of bleeding, perforation, reaction to medications and missed diagnosis were discussed with the patient and informed consent was obtained. Instrument: Olympus CF H 190 L variable stiffness adult colonoscope Monitoring: Vital signs and clinical assessment, intermittent blood pressure monitoring, continuous EKG monitoring, Pulse oximetry and Carbon Dioxide monitoring were done throughout the procedure. Please see anesthesia flowsheet. Colon withdrawl time was 17 minutes. Procedure: The patient was placed in the left lateral decubitis position and pre-procedure medications were administered. After a digital rectal examination of the ano-rectum, the video colonoscope was inserted into the rectum and advanced through the colon to the cecum. The colonoscope was slowly withdrawn in a retrograde panoramic fashion and the colon mucosa was carefully examined including a retroflexed view of the rectum. Findings and interventions are described below. Procedure Difficulty: without difficulty Findings: Terminal Ileum: Not evaluated Cecum: Partially evaluated due to solid stools which could not be suctioned Ascending Colon: Partially evaluated due to solid stools which could not be suctioned Transverse Colon: Normal Descending Colon: Moderate diverticulosis Sigmoid Colon: A 4-5 mm sessile polyp - removed with a cold snare (polyp was retrieved with a biopsy forcep) Moderate diverticulosis Rectum: Normal Ano-rectum: Moderate internal hemorrhoids Colon preparation: Good after some irrigation and fair in the right colon. [place] Bowel Preparation Scale Right colon; 1 Transverse colon: 2 Left colon; 2 (0 = Unprepared colon segment with mucosa not seen due to solid stool that cannot be cleared. 1 = Portion of mucosa of the colon segment seen, but other areas of the colon segment not well seen due to staining, residual stool and/or opaque liquid. 2 = Minor amount of residual staining, small fragments of stool and/or opaque liquid, but mucosa of colon segment seen well. 3 = Entire mucosa of colon segment seen well with no residual staining, small fragments of stool or opaque liquid) Impression and Post Procedure Diagnosis: Colonoscopy Findings: One small polyp was removed Moderate diverticulosis seen in the left colon Moderate hemorrhoids on retroflexed exam. Plan: Pt has a FU appointment on 04/27/24 with Roxi Reyes NP. Repeat Colonoscopy in 3 years if polyps are adenomatous and due to fair prep in the right colon Above findings were reviewed with the patient and relevant handouts were given and the discharge area.
[2024-04-13 11:25] VITALS: BP 97/60; PULSE 58; RESP 16; TEMP 36.6; O2SAT 94
[2024-04-13 11:40] VITALS: BP 93/60; PULSE 59; RESP 18; O2SAT 94
[2024-04-13 11:51] VITALS: BP 135/88; PULSE 55; RESP 18; TEMP 36.6; O2SAT 96
== END 2024-04-13 12:15 | disposition home or self-care (01) ==
PROVIDERS: PCP Family Medicine; Visit Provider Internal Medicine Gastroenterology
PROC: 0DJD8ZZ Inspection of Lower Intestinal Tract, Via Natural or Artificial Opening Endoscopic (ICD-10-PCS; CPT 45378; principal; 2024-04-13 10:30)
DX: Z12.11 Encounter for screening for malignant neoplasm of colon (principal); Z86.010 Personal history of colon polyps; K63.5 Polyp of colon; K57.30 Diverticulosis of large intestine without perforation or abscess without bleeding; K64.8 Other hemorrhoids; K52.9 Noninfective gastroenteritis and colitis, unspecified; K21.9 Gastro-esophageal reflux disease without esophagitis; N40.0 Benign prostatic hyperplasia without lower urinary tract symptoms; I10 Essential (primary) hypertension; J45.909 Unspecified asthma, uncomplicated; G47.33 Obstructive sleep apnea (adult) (pediatric); Z79.51 Long term (current) use of inhaled steroids; Z79.899 Other long term (current) drug therapy; Z99.89 Dependence on other enabling machines and devices; Z98.890 Other specified postprocedural states
CPT/HCPCS: 45385; 45380; 88305; J2704

== ENCOUNTER → 2024-04-13 09:12 | Outpatient (BNV) | payer MEDICAID, SELFPAY | PROVIDERS: PCP Family Medicine; Visit Provider Internal Medicine Gastroenterology | DX: Z12.11 Encounter for screening for malignant neoplasm of colon (principal); Z86.010 Personal history of colon polyps; K63.5 Polyp of colon; K57.90 Diverticulosis of intestine, part unspecified, without perforation or abscess without bleeding; K64.8 Other hemorrhoids | CPT/HCPCS: 45385 ==

== ENCOUNTER 2024-04-27 11:29 | Outpatient (AMB) | payer MEDICAID, SELFPAY ==
[2024-04-27 11:33] VITALS: BP 143/86; PULSE 58; BMI 39.5
--- NOTE | 2024-04-27 11:33 | MHC.OFFVIS ---
Vital Signs 04/27/24 11:33 Height 5 ft 9 in Weight 267 lb 10.259 oz BMI 39.5 BP 143/86 H Blood Pressure Location Lt brachial Position Sitting Pulse 58 Intake Visit Reasons: s/p colonoscopy Intake Note: Patient in office today in follow up s/p colonoscopy. CC: Patient reports doing well and denies having any GI symptoms. Metallurgical Tester Required: No Accompanied by: Self / Same As Patient Allergies No Known Allergies [NO KNOWN ALLERGIES] Allergy (Unknown, Verified 04/27/24 11:38) unknown HPI HPI s/p colonoscopy: Details: Assessment & Plan (1) Pre-op examination: Code(s): Z01.818 - Encounter for other preprocedural examination (2) Tubular adenoma of colon: Comment: 2018 scoped 3 but prep was poor, 2020 large TA's repeat 2 years 2022 Code(s): D12.6 - Benign neoplasm of colon, unspecified (3) Chronic diarrhea: Comment: CONTROLLED WITH FIBER THERAPY Code(s): K52.9 - Noninfective gastroenteritis and colitis, unspecified (4) GERD (gastroesophageal reflux disease): Code(s): K21.9 - Gastro-esophageal reflux disease without esophagitis Plan His last procedure was in 2020 so he is here to discuss his repeat. He is uncertain if he is still taking his fiber or his acid reflux medications but since he does not seem to be having any troubles I will press the issue. These may have been taken over by his primary care provider. He denies any change in his medical history or any problems with the prep for procedure in the past. He denies any trouble with anesthesia or sedation. No ID problems He denies any cardiac problems and has KANWAL and asthma that is controlled. He had very large TA's in 2021. He is agreeable to going for repeat labs so that we can best sedate. Orders: Orders Comprehensive Met. Panel Today D12.6 - Benign neoplasm of colon, unspecified, K21.9 - Gastro-esophageal reflux disease without esophagitis, K52.9 - Noninfective gastroenteritis and colitis, unspecified, Z01.818 - Encounter for other preprocedural examination Complete Blood Count Auto Diff Today D12.6 - Benign neoplasm of colon, unspecified, K21.9 - Gastro-esophageal reflux disease without esophagitis, K52.9 - Noninfective gastroenteritis and colitis, unspecified, Z01.818 - Encounter for other preprocedural examination Colonoscopy - GI Use Only Today D12.6 - Benign neoplasm of colon, unspecified, K21.9 - Gastro-esophageal reflux disease without esophagitis, K52.9 - Noninfective gastroenteritis and colitis, unspecified, Z01.818 - Encounter for other preprocedural examination Medications: New bisacodyl (Dulcolax (bisacodyl)) 10 mg (2 x 5 mg) PO BEDTIME 2 days 4 tabs 0RF peg 3350-electrolytes 236-22.74-6.74 -5.86 gram (Golytely) until fecal effluent is clear; do not exceed a total volume of 2,000 mL 240 mL PO Q10M 1 day 4,000 mL 0RF Z12.11 - Encounter for screening for malignant neoplasm of colon COLONOSCOPY 04/13/24 Findings: Terminal Ileum: Not evaluated Cecum: Partially evaluated due to solid stools which could not be suctioned Ascending Colon: Partially evaluated due to solid stools which could not be suctioned Transverse Colon: Normal Descending Colon: Moderate diverticulosis Sigmoid Colon: A 4-5 mm sessile polyp - removed with a cold snare (polyp was retrieved with a biopsy forcep) Moderate diverticulosis Rectum: Normal Ano-rectum: Moderate internal hemorrhoids Impression and Post Procedure Diagnosis: Colonoscopy Findings: One small polyp was removed Moderate diverticulosis seen in the left colon Moderate hemorrhoids on retroflexed exam. Plan: Pt has a FU appointment on 04/27/24 with Roxi Reyes NP. Repeat Colonoscopy in 3 years if polyps are adenomatous and due to fair prep in the right colon BIOPSY Received: 04/13/24 Diagnosis Colon, sigmoid, polypectomy: Hyperplastic mucosal polyp TODAY'S VISIT The procedure should be repeated in 5 years. The procedure was well tolerated. The results were explained and the patient is agreeable to the follow-up interval as stated. The bowel pattern has returned to normal. Education was provided to tell any 1st degree relatives about their findings to be sure that they are screened by age 45. Educated that they will be put on a recall list when it is time for their repeat scope but should they move out of state or away from the hospital they will need to remember along with their primary to repeat the procedure in a timely fashion to avoid any adverse complications. [facility] Medical History GERD (gastroesophageal reflux disease) KANWAL on CPAP BPH (benign prostatic hyperplasia) Low back pain Asthma HTN (hypertension) Surgical History History of carpal tunnel release of both wrists History of nasal surgery Previous back surgery H/O esophagogastroduodenoscopy H/O colonoscopy Family History Family/Other No pertinent past medical history Social History Alcohol intake: current Alcohol intake frequency: does not drink Patient Tobacco Use Status: Never used Tobacco Review of Systems Const Denies fatigue, Denies fever(s), Denies night sweats, Denies poor appetite and Denies weight loss ENT Reports Normal hearing present, Denies dental pain, Denies dysphagia, Denies hearing loss, Denies mouth pain, Denies odynophagia, Denies throat swelling, Denies tongue swelling and Reports other (Dentition adequate) Card Reports no additional complaints Resp Reports no additional complaints GI Details: Denies abdominal pain, Denies melena, Denies bloating, Denies hematochezia, Reports constipation, Denies GI cramping, Denies dysphagia, Denies excessive flatus, Denies early satiety, Reports heartburn, Denies diarrhea, Denies nausea, Denies odynophagia, Denies vomiting and Denies hematemesis Skin/Breast Denies pruritus, Denies lesions, Denies rash and Denies jaundice Neuro Reports Normal hearing present and Denies Abnormal speech present Endo Denies fatigue Aller/Immun Denies throat swelling and Denies tongue swelling Physical Exam Vital Signs: Last Vital Signs Pulse 58 04/27/24 11:33 BP 143/86 H 04/27/24 11:33 BMI result Body Mass Index 39.5 Const General: cooperative, no acute distress, well developed and well groomed Nutritional Appearance: well nourished and obese Orientation/consciousness: oriented to person, oriented to place and oriented to time Limitations: No language barrier HEENT Head: Yes normocephalic and Yes atraumatic Eyes General: appearance normal, both eyes and all related structures Pupils: Equal, round and reactive pupils present Neck Neck: Yes normal visual inspection and Yes no lymphadenopathy Thyroid: Thyroid normal Resp Effort & Inspection: normal respiratory effort and able to speak in complete sentences Auscultation: clear to auscultation bilaterally Cardio Rate: regular rate Rhythm: regular rhythm Heart sounds: Normal, physiologic split S2 sound present Peripheral pulses: radial pulses present and posterior tibial pulses present GI Inspection: No distended, No Abdominal panniculus present and Yes obesity Palpation (GI): Soft to palpation, nontender, no guarding, not rigid and No hepatosplenomegaly present Percussion: Yes normal to percussion Auscultation: normal bowel sounds Rectal Exam - Male: Yes deferred Skin General skin exam: no rashes or lesions noted, turgor normal, skin not dry, no jaundice, No spider nevi and no striae Rashes: no rashes Nails: normal Neuro General: oriented to person, oriented to place and oriented to time Cranial nerves: Yes Equal, round and reactive pupils present and Yes Normal hearing present Speech: No Abnormal speech present Extrem General: Yes normal to inspection, No clubbing, No cyanosis and No edema Psych Appearance: grossly normal and well kempt Mental Status: mental status grossly normal Speech and movement: Normal speech and movement present Affect: normal affect Attitude: cooperative Thought process: Normal thought process present and not confabulating Thought content: Normal thought content present Insight: Fair insight present (Psych) Judgement: Fair judgement present (Psych) Assessment & Plan Assessment & Plan (1) Tubular adenoma of colon: Comment: 2018 scoped 3 but prep was poor, 2020 large TA's repeat 2 years 2022 Code(s): D12.6 - Benign neoplasm of colon, unspecified Category: Medical Plan The procedure should be repeated in 5 years. The procedure was well tolerated. The results were explained and the patient is agreeable to the follow-up interval as stated. The bowel pattern has returned to normal. Education was provided to tell any 1st degree relatives about their findings to be sure that they are screened by age 45. Educated that they will be put on a recall list when it is time for their repeat scope but should they move out of state or away from the hospital they will need to remember along with their primary to repeat the procedure in a timely fashion to avoid any adverse complications. Coding Level of Care Code Est Pt Level 3 (56463) Diagnoses Tubular adenoma of colon D12.6
== END 2024-04-27 11:50 | disposition home or self-care (01) ==
PROVIDERS: PCP Family Medicine; Visit Provider Nurse Practitioner
DX: D12.6 Benign neoplasm of colon, unspecified (principal)
CPT/HCPCS: 99213

== ENCOUNTER → 2024-04-27 11:29 | Outpatient (BNVA) | payer MEDICAID, SELFPAY | PROVIDERS: PCP Family Medicine; Visit Provider Nurse Practitioner | DX: D12.6 Benign neoplasm of colon, unspecified (principal) | CPT/HCPCS: 99212 ==

== ENCOUNTER 2024-09-24 10:54 | Outpatient (AMB) | payer MEDICAID, SELFPAY ==
[2024-09-24 11:03] VITALS: BP 124/84; PULSE 67; O2SAT 97; BMI 39.0
--- NOTE | 2024-09-24 11:03 | MHC.OFFVIS ---
Vital Signs 09/24/24 11:03 Height 5 ft 9 in Weight 264 lb BMI 39.0 BP 124/84 Blood Pressure Location Lt brachial Position Sitting Pulse 67 Pulse Source Pulse Oximeter Pulse Oximetry (%) 97 Oxygen Delivery Method Room Air Intake Visit Reasons: asthma Party Plan Sales Consultant Required: No Allergies No Known Allergies [NO KNOWN ALLERGIES] Allergy (Unknown, Verified 09/24/24 11:06) unknown HPI Comments Details: The patient is a 59 y/o man with asthma who apparently was in his usual state health until back in 2019 when he had severe COVID. Was briefly hospitalized. Since then he has had issues with breathing and also cough. The patient also suffers from sleep apnea and does use a CPAP. The last few months he has had a hard time with breathing. Back in November he had worsening cough and shortness of breath. The patient did have a chest x-ray which we personally reviewed without any acute disease. He also had a CT scan of the abdomen back in 04/14/2023 with lung windows at least about a 4th of a lung could be visualized. He did have some minimal degree of atelectasis at the bases and also some scarring. Likely the results of the COVID. The patient does feel better. He does have an Advair inhaler and also Spiriva HandiHaler. He does use it regularly although I do not see them on the medication this. He also has a Ventolin rescue inhaler. He seems to be doing better this time. Will try simplify his regimen by switching over to Trelegy. That way he has 1 maintenance inhaler and then his rescue therapy. In addition to that the patient does have underlying allergies. Will start him on Singulair. He will continue his respiratory therapy and will follow-up in 4-6 months. If the patient develops any worsening symptoms prior to that he will call. For the next visit he will also bring his CPAP so we can adjusted if necessary. 09/24/2024 the patient is here for a pulmonary follow-up visit. Overall he is doing okay. He did not tolerate the Trelegy because it caused him to be nauseous. Therefore he stopped it and he has been using the Spiriva. He also it up a known Flovent inhaler that he had and also has been using his rescue inhaler. We need to maximize his respiratory therapy with some for will switch his Flovent to Symbicort that he can use twice a day along with Spiriva HandiHaler. In addition to that the patient has stopped using CPAP. I did explain to him that CPAP is important to treat his cardiovascular risk. I did encourage him to go back to using it. He is hopefully going to restarted and will bring into the next visit. Otherwise the patient is without any other complaints. Seems to be tolerating the singular well. Will follow-up in the fall 2024. [facility] Medical History (Updated 07/20/24 @ 10:12 by Justine Larsen PA-C) HTN (hypertension) KANWAL on CPAP Asthma Tubular adenoma of colon GERD (gastroesophageal reflux disease) BPH (benign prostatic hyperplasia) Low back pain Surgical History (Updated 07/20/24 @ 10:17 by Justine Larsen PA-C) Previous back surgery History of colonoscopy History of esophagogastroduodenoscopy (EGD) History of inguinal hernia repair, bilateral History of hemorrhoidectomy History of carpal tunnel release of both wrists History of nasal surgery Family History Family/Other No pertinent past medical history Social History Alcohol intake: current Alcohol intake frequency: does not drink Patient Tobacco Use Status: Never used Tobacco Review of Systems Const Denies fatigue, Denies fever(s), Denies night sweats, Denies poor appetite and Denies weight loss ENT Reports Normal hearing present Card Reports no additional complaints and Reports dyspnea on exertion Resp Reports cough and Reports dyspnea on exertion GI Details: Denies abdominal pain Skin/Breast Denies rash Neuro Reports Normal hearing present and Denies Abnormal speech present Endo Denies fatigue Physical Exam Vital Signs: Last Vital Signs Pulse 67 09/24/24 11:03 BP 124/84 09/24/24 11:03 Pulse Ox 97 09/24/24 11:03 Oxygen Delivery Method Room Air 09/24/24 11:03 BMI result Body Mass Index 39.0 HEENT Head: Yes normocephalic and Yes atraumatic Neck Neck: Yes normal visual inspection and Yes no lymphadenopathy Chest Other: gynecomastia Chest palpation & inspection: normal inspection of the chest Resp Effort & Inspection: normal respiratory effort and able to speak in complete sentences Auscultation: no wheezes and diminished lung sounds Cardio Rate: regular rate Rhythm: regular rhythm GI Inspection: No distended Palpation (GI): Soft to palpation Skin General skin exam: no rashes or lesions noted Neuro Cranial nerves: Yes Normal hearing present Speech: No Abnormal speech present Extrem General: No clubbing, No cyanosis and No edema Psych Appearance: grossly normal Assessment & Plan Assessment & Plan (1) Asthma: Code(s): J45.909 - Unspecified asthma, uncomplicated Category: Medical Qualifiers: Asthma complication type: uncomplicated Asthma persistence: persistent Asthma severity: moderate Qualified Code(s): J45.40 - Moderate persistent asthma, uncomplicated (2) KANWAL on CPAP: Comment: doesn't use cpap Code(s): G47.33 - Obstructive sleep apnea (adult) (pediatric); Z99.89 - Dependence on other enabling machines and devices Category: Medical Plan continue Spiriva handihaler start Symbicort conitnue singulair qhs stopped Trelegy 100 (N/V) ASHELY as needed conisder restarting CPAP, should bring it in to the next visit to download and adjust F/U 8 months Medications: New budesonide-formoterol 160-4.5 mcg/actuation (Symbicort) 2 puffs inhalation BID 10.2 grams 11RF 30 days J44.89 - Other specified chronic obstructive pulmonary disease Coding Level of Care Code Est Pt Level 4 (31975) Diagnoses Moderate persistent asthma without complication J45.40 Asthma complication type: uncomplicated Asthma persistence: persistent Asthma severity: moderate KANWAL on CPAP G47.33; Z99.89 Time Spent (min) 16
== END 2024-09-24 11:23 | disposition home or self-care (01) ==
PROVIDERS: PCP Family Medicine; Visit Provider Hospitalist
DX: J45.40 Moderate persistent asthma, uncomplicated (principal); G47.33 Obstructive sleep apnea (adult) (pediatric); Z99.89 Dependence on other enabling machines and devices
CPT/HCPCS: 99214

== ENCOUNTER → 2024-09-24 10:54 | Outpatient (BNVA) | payer MEDICAID, SELFPAY | PROVIDERS: PCP Family Medicine; Visit Provider Hospitalist | DX: J45.40 Moderate persistent asthma, uncomplicated (principal); G47.33 Obstructive sleep apnea (adult) (pediatric); Z99.89 Dependence on other enabling machines and devices; Z91.148 Patient's other noncompliance with medication regimen for other reason | CPT/HCPCS: 99212 ==

== ENCOUNTER 2024-12-25 13:20 | Outpatient (REF) | payer MEDICAID, SELFPAY ==
--- OUTSIDE RECORDS SUMMARY | 2024-12-25 15:42 | XMS_ITS | Clinical Summary ---
Author Organization [address] [facility] Address [address] [place] [address] Phone Care Team Providers Care Dairy Worker Name Role Phone Unavailable Primary Care Provider Unavailabl e Social History Tobacco Use Types Packs/Day Years Used Date Smoking Tobacco: Never Assessed Sex and Gender Information Value Date Recorded Sex Assigned at Not on file Legal Sex Male 1:00 AM EST Gender Identity Not on file Sexual Orientation Not on file Plan of Treatment Health Maintenance Due Date Last Done Comments DTaP,Tdap,and Td Vaccines (1 - Tdap) 1982 Pneumococcal Vaccine: 50+ Ye ars (1 of 1 - PCV) 2013 Zoster Vaccines (1 of 2) 2013 COVID-19 Vaccine (1 - 2023-2 5 season) 2024 Cholesterol Screening (Lipid Panel) 10/21/2024 Colorectal Cancer Screening: Colonoscopy 10/21/2024 Depression Screening 10/21/2024 HIV Screening 10/21/2024 Hepatitis C Screening 10/21/2024 Social Influencers of Health Screening 10/21/2024 Influenza Vaccine (Season Ended) 2025 RSV Immunization Patients 60 + Years Old (1 - 1-dose 75+ series) 2038 HIB Vaccines Aged Out No longer eligi ble based on patient's age to complete this topic HPV Vaccines Aged Out No longer eligi ble based on patient's age to complete this topic Hepatitis A Vaccines Aged Out No long er eligible based on patient's age to complete this topic Hepatitis B Vaccines Aged Out No long er eligible based on patient's age to complete this topic IPV Vaccines Aged Out No longer eligi ble based on patient's age to complete this topic MMR Vaccines Aged Out No longer eligi ble based on patient's age to complete this topic Meningococcal ACWY Vaccine Aged Out N o longer eligible based on patient's age to complete this topic Meningococcal B Vacine Aged Out No lo nger eligible based on patient's age to complete this topic Pneumococcal Vaccine: Pediat rics (0 to 5 Years) and At-Risk Patients (6 to 64 Years) Aged Out No longer eligible b ased on patient's age to complete this topic RSV Immunization Patients Un chaya 20 months Aged Out No longer eligible b ased on patient's age to complete this topic Varicella Vaccines Aged Out No longer eligible based on patient's age to complete this topic Insurance MEDICAID - [place]
--- OUTSIDE RECORDS SUMMARY | 2024-12-25 15:42 | XMS_ITS | Encounter Summary ---
Author Organization [employer] [facility] Address [address] [facility] [address] [place] [address] Care Team Providers Care Biological Engineer Name Role Phone Kristen Cruz MD Primary Care Provider [phone] Sotero Garcias PharmD Unavailable [phone] Encounter Details Date Type Department Care Team (Latest Contact Info) Description 03/01/2019 Abstract [facility] CONVERSIONS Dental, Provider, DDS Social History Tobacco Use Types Packs/Day Years Used Date Smoking Tobacco: Never Assessed Sex and Gender Information Value Date Recorded Sex Assigned at Male 07/26/2022 10:16 AM EDT Legal Sex Male 10:16 AM EDT Gender Identity Male 07/26/2022 10:16 AM EDT Sexual Orientation Straight 07/26/2022 10 :16 AM EDT documented as of this encounter Plan of Treatment Not on file documented as of this encounter Visit Diagnoses Not on filedocumented in this encounter Care Teams Biological Engineer Relationship Specialty Start Date End Date Kristen Cruz MD [address] [place] [address] PCP - General Family Medicine 09/26/18 Sotero Garcias, PharmD [address] [place] [address] Pharmacist Internal Medicine 07/11/23 documented as of this encounter
--- OUTSIDE RECORDS SUMMARY | 2024-12-25 15:42 | XMS_ITS | Encounter Summary ---
Author Organization [employer] [facility] Address [address] [facility] [address] [place] [address] Care Team Providers Care Legislative Director Name Role Phone Kristen Cruz MD Primary Care Provider [phone] Sotero Garcias PharmD Unavailable [phone] Reason for Visit * Reason Comments Med Refill Encounter Details Date Type Department Care Team (Late st Contact Info) Description 07/13/2023 Refill [facility] MEDICINE [address] [place] [address] Sotero Garcias, PharmD [address] [place] [address] Essential hypertension Social History Tobacco Use Types Packs/Day Years Used Date Smoking Tobacco: Never Smokeless Tobacco: Never Alcohol Use Standard Drinks/Week Comments Not Currently 0 (1 standard drink = 0.6 oz pur e alcohol) Sex and Gender Information Value Date Recorded Sex Assigned at Male 07/26/2022 10:16 AM EDT Legal Sex Male 10:16 AM EDT Gender Identity Male 07/26/2022 10:16 AM EDT Sexual Orientation Straight 07/26/2022 10 :16 AM EDT documented as of this encounter Plan of Treatment Not on file documented as of this encounter Goals Goal Patient Goal Type Associated Problems Recent Progress Patient-Stated? Author Blood Pressure < 140/90 Blood Pressure 150/90( 025 1:13 PM EDT) No Sotero Garcias, PharmD documented as of this encounter Visit Diagnoses Diagnosis Essential hypertension Unspecified essential hypertension documented in this encounter Care Teams Legislative Director Relationship Specialty Start Date End Date Kristen Cruz MD [address] [place] [address] PCP - General Family Medicine 09/26/18 Sotero Garcias, NaylaD [address] [place] [id number] Pharmacist Internal Medicine 07/11/23 documented as of this encounter
--- OUTSIDE RECORDS SUMMARY | 2024-12-25 15:42 | XMS_ITS | Encounter Summary ---
Author Organization [facility] Address [address] [place] [address] Care Team Providers Care Tufting Creeler Name Role Phone Unavailable Primary Care Provider Unavailabl e Encounter Details Date Type Department Care Team (Late st Contact Info) Description 08/30/2024 Lab Requisition [facility] - Main Lab [address] [facility] [place] [address] Social History Tobacco Use Types Packs/Day Years Used Date Smoking Tobacco: Never Assessed Sex and Gender Information Value Date Recorded Sex Assigned at Not on file Legal Sex Male 1:00 AM EST Gender Identity Not on file Sexual Orientation Not on file documented as of this encounter Plan of Treatment Scheduled Orders Name Type Priority Associated Diagnoses Orde r Schedule Anatomic pathology outside consult Pathology and Cytology Routine Ordered: 08/30/2024 documented as of this encounter Visit Diagnoses Not on filedocumented in this encounter
--- OUTSIDE RECORDS SUMMARY | 2024-12-25 15:42 | XMS_ITS | Clinical Summary ---
Author Organization [employer] Address [address] [facility] [place] [address] [place] [address] Care Team Providers Care Motor Vehicle Dispatcher Name Role Phone Kristen Cruz MD Primary Care Provider Sotero Garcias PharmD Unavailable [phone] Allergies Active Allergy Reactions Criticality Noted Date Comments Pollen Extract 07/11/2023 Other reaction(s): grass, runny nose and watery eyes Medications ARIPiprazole (Abilify) 10 MG tablet Take 10 mg by mouth in the morning. 023 Active escitalopram (Lexapro) 10 MG tablet Take 10 mg by mouth in the morning. 023 Active pantoprazole (ProtoNix) 40 MG EC tablet Take 40 mg by mouth 2 times daily. 022 Active tamsulosin (Flomax) 0.4 MG 24 hr capsule Take 0.4 mg by mouth at bedtime. 022 Active trospium (Sanctura) 20 MG tablet Take 20 mg by mouth at bedtime. 023 Active zolpidem (Ambien) 10 MG tablet TAKE 1 TABLET BY MOUTH EVERY DAY AT BEDTIME FOR INSOMNIA. 023 Active ergocalciferol (Vitamin D2) 1.25 MG (49497 UT) capsuleIndicatio ns:Vitamin D deficiency TAKE 1 CAPSULE BY MOUTH EVERY WEEK FOR 12 WEEKS 12 capsule 023 Active loratadine (Claritin) 10 MG tablet Take 1 tablet (10 mg) by mouth in the morning. 90 tablet 1 023 Active EPINEPHrine (EpiPen 2-Momo) 0.3 MG/0.3ML injection syringe inject 0.3 milliliter by intramuscular route once as needed for anaphylaxis Active Blood Pressure Monitoring (Blood Pressure Kit) kitIndications:E ssential hypertension Use as directed to check blood pressure daily 1 kit 023 Active fluticasone (Flonase) 50 MCG/ACT nasal spray Administer 1-2 sprays into each nostril in the morning. Shake gently. Before first use, prime pump. After use, clean tip and replace cap. 16 g 2 023 Active albuterol 108 (90 Base) MCG/ACT inhalerIndicatio ns:Moderate persistent asthma without complication INHALE 2 PUFFS BY MOUTH EVERY 6 HOURS NEEDED 18 g 024 Active albuterol (2.5 MG/3ML) 0.083% nebulizer solution inhale 3 milliliter by nebulization route every 4 hours as needed for asthma symptoms, Maximum 4 treatments per day 75 mL 2 024 Active ipratropium (Atrovent) 0.06 % nasal spray Administer 2 sprays into each nostril 2 times daily. 15 mL 1 024 Active ketotifen (Zaditor) 0.025 % ophthalmic solution Instill 1 drop to each eye twice daily 5 mL 11 024 Active lisinopril 40 MG tablet Take 1 tablet (40 mg) by mouth Once per day. 90 tablet 3 024 2024 Active montelukast (Singulair) 10 MG tabletIndication s:Allergic rhinitis, unspecified seasonality, unspecified trigger Take 1 tablet (10 mg) by mouth at bedtime. 90 tablet 3 024 Active atorvastatin (Lipitor) 10 MG tablet Take 1 tablet (10 mg) by mouth Once per day. 90 tablet 3 024 2024 Active famotidine (Pepcid) 20 MG tabletIndication s:Dyspepsia Take 1 tablet (20 mg) by mouth 2 times daily. 60 tablet 11 024 2024 Active Neomycin-Polymyx in-HC 1 % solution Administer 3 drops into affected ear(s) 4 times daily. 10 mL 024 Active triamcinolone (Kenalog) 0.1 % cream Apply topically if needed in the morning and at bedtime (pain and swelling). 30 g 3 Active Tirzepatide-Weig ht Management (Zepbound) 2.5 MG/0.5ML solution auto-injector Inject 0.5 mL (2.5 mg) under the skin 1 (one) time per week. 2 mL 11 Active lidocaine (Lidoderm) 5 % patch APPLY 1 PATCH TOPICALLY TO THE SKIN EVERY DAY. MAY WEAR UP TO 12 HOURS 30 patch 1 Active Symbicort 160-4.5 MCG/ACT inhaler Inhale 2 puffs 2 times daily. Active Incruse Ellipta 62.5 MCG/ACT aerosol powder inhale 1 puff by mouth daily Active traMADol (Ultram) 50 MG tabletIndication s:Chronic low back pain, unspecified back pain laterality, unspecified whether sciatica present,Lumbar radiculopathy Take 1 tablet (50 mg) by mouth if needed in the morning and at bedtime for severe pain. 15 tablet Active Breo Ellipta 200-25 MCG/ACT aerosol powder INHALE 1 PUFF BY MOUTH DAILY 2024 Discontinued(M ed list cleanup (will not trigger notification to Pharmacy)) Spiriva HandiHaler [address] 1 capsule into inhaler and inhale in the morning. 2024 Discontinued(M ed list cleanup (will not trigger notification to Pharmacy)) Active Problems Problem Noted Date Diagnosed Date Right ear pain 09/25/2024 Assessment & Plan (09/25/2024 1:08 PM EST): - likely irritation - avoid using q-tips - will prescribe antibiotic drops with steroid Rash 09/25/2024 Assessment & Plan (10/05/2024 12:45 PM EST): -pt likely has eczema or lichen planus -avoid scratching -will prescribe topical steroid cream Dyslipidemia 03/14/2024 Assessment & Plan (12/25/2024 1:27 PM EDT): - last lipid profile in Oct 2023 - 10-year ASCVD risk suggests statin-benefit group, moderate intensity - continue atorvastatin 10 mg at bedtime - Prescribed tramadol 50 mg 12/25/24 Assessment & Plan (06/20/2024 12:11 PM EDT): - last lipid profile in Oct 2023 - 10-year ASCVD risk suggests statin-benefit group, moderate intensity - continue atorvastatin 10 mg qhs Assessment & Plan (03/14/2024 11:37 AM EDT): - last lipid profile in Oct 2023 - 10-year ASCVD risk suggests statin-benefit group, moderate intensity - will start atorvastatin 10 mg qhs Chronic diarrhea 07/11/2023 07/11/2023 Lumbar radiculopathy 07/11/2023 07/11/2023 Assessment & Plan (12/25/2024 2:07 PM EDT): - Prescribed traMADol (Ultram) 50 MG tablet 12/25/24 KANWAL on CPAP 11/23/2022 Assessment & Plan (10/05/2024 12:43 PM EST): -sleep study 2016 -followed by sleep study clinic, last seen on 05/18/21 -currently seeing Dr. Villasenor, day porter -pt currently on auto CPAP from 6-16 cmH20 pressure -symptoms are improving with weight loss -pt encouraged to use CPAP machine Assessment & Plan (06/20/2024 12:12 PM EDT): -sleep study 2016 -followed by sleep study clinic, last seen on 05/18/21 -Last appt on December 15, 2020 -pt currently on auto CPAP from 6-16 cmH20 pressure -symptoms are improving with weight loss Assessment & Plan (03/13/2024 8:57 AM EDT): continue CPAP -sleep study 2016 -followed by sleep study clinic, last een on 05/18/21 -Last appt on December 15, 2020 -pt currently on auto CPAP from 6-16 cmH20 pressure -pt was advised to improve adherence Assessment & Plan (12/12/2023 5:04 PM EDT): continue CPAP -sleep study 2017 -followed by sleep study clinic, last een on 05/18/21 -Last appt on December 15, 2020 -pt currently on auto CPAP from 6-16 cmH20 pressure -pt was advised to improve adherence Assessment & Plan (08/19/2023 11:38 AM EST): continue CPAP -sleep study 2017 -followed by sleep study clinic, last een on 05/18/21 -Last appt on December 15, 2020 -pt currently on auto CPAP from 6-16 cmH20 pressure -pt was advised to improve adherence Assessment & Plan (11/23/2022 11:57 AM EST): continue CPAP -sleep study 2016 -followed by sleep study clinic, last een on 05/18/21 -Last appt on December 15, 2020 -pt currently on auto CPAP from 6-16 cmH20 pressure -pt was advised to improve adherence Carpal tunnel syndrome 04/27/2018 Degeneration of lumbosacral intervertebral disc 07/22/2015 Assessment & Plan (03/13/2024 8:59 AM EDT): -s/p Left L4-L5 microdiskectomy by Dr. Torres on 03/26/19 -pt reports improvement of pain with tramadol -pt reports he does not need to take tramadol everyday; pt was prescribed 20 tablets per month -pt signed agreement for control of substance use for tramadol in the past, but is no longer taking -Avoid NSAIDs Assessment & Plan (12/12/2023 5:07 PM EDT): -s/p Left L4-L5 microdiskectomy by Dr. Torres on 03/26/19 -pt reports improvement of pain with tramadol -pt reports he does not need to take tramadol everyday; pt was prescribed 20 tablets per month -pt signed agreement for control of substance use for tramadol in the past, but is no longer taking -Avoid NSAIDs Assessment & Plan (08/19/2023 11:36 AM EST): -s/p Left L4-L5 microdiskectomy by Dr. Torres on 03/26/19 -pt reports improvement of pain with tramadol -pt reports he does not need to take tramadol everyday; pt was prescribed 20 tablets per month -pt signed agreement for control of substance use for tramadol in the past, but is no longer taking -Avoid NSAIDs Assessment & Plan (11/23/2022 11:49 AM EST): -s/p Left L4-L5 microdiskectomy by Dr. Torres on 03/26/19 -pt reports improvement of pain with tramadol -pt reports he does not need to take tramadol everyday; pt was prescribed 20 tablets per month -pt signed agreement for control of substance use for tramadol in the past, but is no longer taking -Avoid NSAIDs Impaired fasting glucose 07/22/2015 Sacroiliac joint pain 07/22/2015 Spondylosis 07/22/2015 HTN (hypertension) 07/03/2015 Assessment & Plan (12/25/2024 1:22 PM EDT): - goal BP < 140/90 per JNC8, < 130/80 per ACC/AHA guideline - BP at goal today - co-managed with our pharamcist -01/27/18 - Echo normal LVEF 55-60% -questionable adherence to medication and BP check at home -improve medication adherence. -monitor home BP regularly -Continue lisinopril 40 mg daily. Treatment Hx: -previously prescribed HCTZ 25 mg/daily, which was discontinued due to poor adherence -lisinopril was changed to valsartan in Jun 2023 due to cough, but pt reports intolerance with valsartan and restarted Lisinopril -Discussed about the importance of lifestyle modification and medication adherence. -Follow-up in 3-6 months or sooner prn Assessment & Plan (09/25/2024 1:01 PM EST): - goal BP < 140/90 per JNC8, < 130/80 per ACC/AHA guideline - BP at goal today - co-managed with our pharamcist -01/27/18 - Echo normal LVEF 55-60% -questionable adherence to medication and BP check at home -improve medication adherence. -monitor home BP regularly -Continue lisinopril 40 mg daily. Treatment Hx: -previously prescribed HCTZ 25 mg/daily, which was discontinued due to poor adherence -lisinopril was changed to valsartan in Jun 2023 due to cough, but pt reports intolerance with valsartan and restarted Lisinopril -Discussed about the importance of lifestyle modification and medication adherence. -Follow-up in 3-6 months or sooner prn Assessment & Plan (06/20/2024 12:07 PM EDT): - goal BP < 140/90 per JNC8, < 130/80 per ACC/AHA guideline - BP at goal today - co-managed with our pharamcist -01/27/18 - Echo normal LVEF 55-60% -questionable adherence to medication and BP check at home -improve medication adherence. -monitor home BP regularly -Continue lisinopril 40 mg daily. Treatment Hx: -previously prescribed HCTZ 25 mg/daily, which was discontinued due to poor adherence -lisinopril was changed to valsartan in Jun 2023 due to cough, but pt reports intolerance with valsartan and restarted Lisinopril -Discussed about the importance of lifestyle modification and medication adherence. -Follow-up in 3-6 months or sooner prn Assessment & Plan (03/14/2024 11:30 AM EDT): - goal BP < 140/90 per JNC8, < 130/80 per ACC/AHA guideline - BP at goal today - co-managed with our pharamcist -01/27/18 - Echo normal LVEF 55-60% -questionable adherence to medication and BP check at home -improve medication adherence. -monitor home BP regularly -Continue lisinopril 40 mg daily. Treatment Hx: -previously prescribed HCTZ 25 mg/daily, which was discontinued due to poor adherence -lisinopril was changed to valsartan in Jun 2023 due to cough, but pt reports intolerance with valsartan and restarted Lisinopril -Discussed about the importance of lifestyle modification and medication adherence. -Follow-up in 3-6 months or sooner prn Assessment & Plan (12/12/2023 5:08 PM EDT): - goal BP < 140/90 per JNC8, < 130/80 per ACC/AHA guideline - BP not at goal today - co-managed with our pharamcist -01/27/18 - Echo normal LVEF 55-60% -questionable adherence to medication and BP check at home -improve medication adherence. -monitor home BP regularly -Continue valsartan 160 mg daily. -previously prescribed HCTZ 25 mg/daily, but was discontinued because we learned that he had not been taking it. -lisinopril was changed to valsartan in Jun 2023 -Discussed about the importance of lifestyle modification and medication adherence. -Follow-up in 3-6 months or sooner prn Assessment & Plan (11/19/2023 4:23 PM EST): Today BP elevated Home BP <140/90 Per pt -advised pt to be compliant taking his BP meds and pt will bring home BP readings at next apt w PCP scheduled for 3 weeks Assessment & Plan (08/19/2023 11:41 AM EST): - goal BP < 140/90 per JNC8, < 130/80 per ACC/AHA guideline - BP not at goal today - co-managed with our pharamcist -01/27/18 - Echo normal LVEF 55-60% -questionable adherence to medication and BP check at home -improve medication adherence. -monitor home BP regularly -Continue valsartan 160 mg daily. -previously prescribed HCTZ 25 mg/daily, but was discontinued because we learned that he had not been taking it. -lisinopril was changed to valsartan in Jun 2023 -Discussed about the importance of lifestyle modification and medication adherence. -Follow-up in 3-6 months or sooner prn Assessment & Plan (11/23/2022 11:47 AM EST): goal BP < 140/90. BP not at goal today, pt did not take medication today -01/27/18 - Echo normal LVEF 55-60% -questionable adherence to medication and BP check at home -improve medication adherence. -Continue Lisinopril 40 mg daily. -previously prescribed HCTZ 25 mg/daily, but was discontinued because we learned that he had not been taking it. -Discussed about the importance of lifestyle modification and medication adherence. -Advised to check BP at home daily. Since this is becoming a pattern (elevated BP with PCP due to non-adherence and normal BP with RN after taking medication), he was recommended to have a medbox by our pharmacy. He refused. --Follow-up in 4-5 months Tubular adenoma of colon 12/24/2014 Assessment & Plan (06/20/2024 12:08 PM EDT): - tubular adenoma in 2017 and 2021 - most recent colonoscopy in March 2024 by [facility] GI Dr. Boo. Hyperplastic polyp. Recommended to repeat colonoscopy in 5 years. Assessment & Plan (03/14/2024 11:31 AM EDT): - last colonoscopy in 2017 - GI: [facility], last seen in Sep 2021 - Upcoming appointment for colonoscopy and EGD Assessment & Plan (08/19/2023 11:50 AM EST): - last colonoscopy in 2017 - GI: [facility], last seen in Sep 2021 - He was supposed to have a colonoscopy, but did not follow up - refer back Chronic low back pain 02/09/2013 Assessment & Plan (12/25/2024 1:26 PM EDT): - acute exacerbation in November 2023 and treated with tramadol - stable / back to baseline at this time - Prescribed tramadol 50 mg 12/25/24 Assessment & Plan (03/14/2024 11:34 AM EDT): - acute exacerbation in November 2023 and treated with tramadol - stable / back to baseline at this time Assessment & Plan (08/19/2023 11:38 AM EST): - acute exacerbation - agreed to prescribe a short course of tramadol - will need [employer] agreement if pt needs another tramadol script in the future GERD (gastroesophageal reflux disease) 3 Assessment & Plan (03/14/2024 11:31 AM EDT): - continue pantoprazole Asthma 11/07/2012 Assessment & Plan (09/25/2024 1:18 PM EST): -following up with Dr. Villasenor [facility] [employer] last seen on 09/24/24. -last asthma flare up in 06/2024. Treated with Prednisone and no ABx -continue Symbicort, as maintenance. Discussed about mouth care after each use -continue Tiotropium 18 mcg inhaler once daily. -continue Singulair -continue Albuterol, as rescue. -treatment history: patient tried Trelegy but was unable to tolerate due to nausea; Flovent was switched to Symbicort Assessment & Plan (06/20/2024 9:08 AM EDT): -continue Flovent 220mcg, as maintenance. Discussed about mouth care after each use -continue Singulair -continue Albuterol, as rescue. -Pt reports chronic cough. -Start Prednisone 10 MG (x5 tablets for 2 days, x4 tablets for 2 days, x3 tablets for 2 days, x2 tablets for 2 days, x1 tablet for 2 days). -Start Tiotropium 18 mcg inhaler once daily. -CXR was negative -saw PulmonolgyDr. Villasenor and was switched to Breo and Incruse. Will confirm with day porter. Assessment & Plan (03/13/2024 11:47 AM EDT): -continue Flovent 220mcg, as maintenance. Discussed about mouth care after each use -continue Singulair -continue Albuterol, as rescue. -Pt reports chronic cough. -Start Prednisone 10 MG (x5 tablets for 2 days, x4 tablets for 2 days, x3 tablets for 2 days, x2 tablets for 2 days, x1 tablet for 2 days). -Start Tiotropium 18 mcg inhaler once daily. -CXR was negative -saw Dr. Hamilton Oshea and was switched to Breo and Incruse. Will confirm with day porter. Assessment & Plan (12/12/2023 5:08 PM EDT): -continue Flovent 220mcg, as maintenance. Discussed about mouth care after each use -continue Singulair -continue Albuterol, as rescue. -Pt reports chronic cough. -Start Prednisone 10 MG (x5 tablets for 2 days, x4 tablets for 2 days, x3 tablets for 2 days, x2 tablets for 2 days, x1 tablet for 2 days). -Start Tiotropium 18 mcg inhaler once daily. -Will obtain chest X-rays for further evaluation. -Referral made to Pulmonology for further evaluation and management. Assessment & Plan (11/23/2022 11:48 AM EST): --continue Flovent 220mcg, as maintenance. Discussed about mouth care after each use -continue Singulair -continue Albuterol, as rescue. Benign prostatic hyperplasia 11/07/2012 Assessment & Plan (10/05/2024 12:44 PM EST): -Urologist: [facility], last seen in Jul 2024 - TRUSP biopsy on 07/07/21 for elevated PSA; result was benign. - continue trospium as prescribed Assessment & Plan (03/14/2024 11:32 AM EDT): -Urologist: [facility] Dom[facility], last seen in January 2023 - TRUSP biopsy on 07/07/21 for elevated PSA; result was benign. - continue trospium as prescribed Assessment & Plan (08/19/2023 11:36 AM EST): -Urologist: [facility] Dom[facility], last seen in January 2023 - TRUSP biopsy on 07/07/21 for elevated PSA; result was benign. - continue trospium as prescribed Assessment & Plan (11/23/2022 11:53 AM EST): Patient underwent biopsy of Prostate, 07/07/21; results were benign. --Follow-up in 1 year with Urologist. Allergic rhinitis 08/22/2012 Assessment & Plan (03/14/2024 11:35 AM EDT): -followed by ENT and pulmonology -continue loratadine -continue ipratropium nasal -continue fluticasone nasal - continue montelukast Assessment & Plan (08/19/2023 11:54 AM EST): -followed by ENT -continue loratadine -continue ipratropium nasal -continue fluticasone nasal Assessment & Plan (11/23/2022 11:54 AM EST): -followed by ENT -continue loratadine -continue ipratropium nasal -continue Flonase Obesity 05/24/2012 Assessment & Plan (12/25/2024 1:23 PM EDT): -started Wegovy since January 2024 -will switch to lowest dose of Zepbound -will increase Zepbound dose cautiously, as tolerated. - continue working on lifestyle modifications Assessment & Plan (10/05/2024 12:45 PM EST): -started Wegovy since January 2024 -will switch to lowest dose of Zepbound -will increase Zepbound dose cautiously, as tolerated. - continue working on lifestyle modifications Assessment & Plan (06/20/2024 12:10 PM EDT): -started Wegovy since January 2024 -increase to 1 mg weekly - continue working on lifestyle modifications Assessment & Plan (03/13/2024 11:41 AM EDT): -was started Wegovy 0.25 Mg once weekly, will increase dose since pt is tolerating well. Assessment & Plan (12/12/2023 5:06 PM EDT): -Start Wegovy 0.25 Mg once weekly. Plantar fasciitis 05/24/2012 Vitamin D deficiency 05/24/2012 Assessment & Plan (03/14/2024 11:33 AM EDT): Continue vitamin D supplementation Resolved Problems Problem Noted Date Diagnosed Date Resolved Date Cough 11/19/2023 03/14/2024 Assessment & Plan (12/12/2023 5:08 PM EDT): -Pt reports chronic cough. -Continue current asthma medications. -Start Prednisone 10 MG (x5 tablets for 2 days, x4 tablets for 2 days, x3 tablets for 2 days, x2 tablets for 2 days, x1 tablet for 2 days). -Start Tiotropium 18 mcg inhaler once daily. -Will obtain chest X-rays for further evaluation. --Referral made to Pulmonology for further evaluation and management. Assessment & Plan (11/19/2023 4:22 PM EST): Seems most like etiology of his ongoing dry cough with no concerning symptoms for infection are either from uncontrolled asthma w wheezing reported and dyspnea ,also valsartan use can be another possibility . Pt does have GERD and this shoulder be evaluated as well if no improvement ,Cardiac etiology seems less likely w no orthopnea no LE edema. On exam has scant wheezing in both lungs CBC and chem 11/16/2022 wnl -px today prednisone 40 mg daily for 5 days -advised pt to resume his Advair as prescribed in the past -refilled his ASHELY as inh and NBZ for prn use -apt w PCP 12/12/2023 already scheduled to follow symptoms -if cough is not better controlled w above tx will need to consdier valsartan as causing this dry cough Preop examination 11/23/2022 08/09/2023 Assessment & Plan (11/25/2022 12:12 AM EST): -Patient is considered as a low-intermediate risk pt and the procedure considered as intermediate risk. Patient functional level is at 4 METs. Patient EKG is normal in the clinic. Blood Pressure is elevated but did not take his BP medications this morning. Advised to take BP medication especially on the day of surgery. -Advised to stop taking NSAIDs. -Patient is able to proceed with surgery without further risk-stratification and management Encounters Date Type Department Care Team Description 12/25/2024 1:00 PM EDT Office Visit [facility] [address] [place] [address] Kristen Cruz MD Hypertension, unspecified type (Primary Dx); Impaired fasting glucose; Class 3 severe obesity due to excess calories with serious comorbidity and body mass index (BMI) of 40.0 to 44.9 in adult ([facility]); Dyslipidemia; Chronic low back pain, unspecified back pain laterality, unspecified whether sciatica present; Lumbar radiculopathy 12/25/2024 Travel 12/07/2024 Population Health Risk Score [facility] () [address] [phone] Provider, Population Health Generic 11/21/2024 Refill [facility] [address] [place], [place] [phone] Kristen Cruz MD 11/09/2024 Telephone [facility] [address] [place], [place] [phone] Anette Brenner MA Error (VOID this visit) 11/09/2024 Telephone [facility] [address], [place] [phone] Anette Brenner MA Error (VOID this visit) 10/19/2024 Telephone [facility] [address] [place], [place] [phone] Kristen Cruz MD Prior Authorization ( [place] Request: Zepbound) from Last 3 Months Immunizations Name Administration Dates Next Due Influenza injectable quadriv alent preservative free 06/22/2023,06/21/2022,07/01/2021,06/26,07/27/2018 Influenza, IIV3, injectable 07/28/2014, 0,08/07/2008 Influenza, Injectable, MDCK, preservative free 06/20/2015 Influenza, Split (incl. dima fied surface antigen) 02/13/2014,05/24/2012 Influenza, seasonal, injecta ble, preservative free 06/20/2024,06/26/2017,07/25/2016 Moderna Covid-19 Vaccine 12+ 11/24/2020 Pfizer Covid-19 Vaccine 12+ 06/20/2024, Pfizer Covid-19 Vaccine 12+ Bivalent 09/22/2022 Pneumococcal Conjugate PCV 20 12/12/2023 Pneumococcal Polysaccharide PPSV23 02/13/2014 RSV Adjuvant 06/22/2024 TD (adult), 2 Lf tetanus tox oid, preservative free, adsorbed 06/21/2022,06/15/2005 Tdap 06/22/2024,01/05/2012 Zoster, Recombinant 09/08/2021,07/01/2021 Family History Medical History Relation Name Comments Asthma Brother Hypertension Mother Relation Name Status Comments Brother Mother Social History Tobacco Use Types Packs/Day Years Used Date Smoking Tobacco: Never Smokeless Tobacco: Never Tobacco Cessation:Counseling Given: Not Answered Alcohol Use Standard Drinks/Week Comments Not Currently 0 (1 standard drink = 0.6 oz pur e alcohol) Depression Answer Date Recorded Patient Health Questionnaire-9 Score 0 06/20/2024 Patient Health Questionnaire-9 Score 0 06/20/2024 Last PHQ-9: Questionnaire Data Not on file 0 06/20/2024 Housing Stability Answer Date Recorded What is your housing situation today? I have rebeca harvey 12/25/[address] you li ve. Do you have problems with any of the following? None of the above 12/25/2024 Food Insecurity Answer Date Recorded Within the past 12 months, y ou worried that your food would run out before you got money to buy more: Never True 12/25/2024 Within the past 12 months,th e food you bought just didn't last and you didn't have enough money to get more: Never True 09/2024 Transportation Answer Date Recorded In the past 12 months, has l ack of transportation kept you from medical appts, meetings, work or from getting things needed for daily living? No 12/25/2024 Utilities Answer Date Recorded In the past 12 months, has t he electric, gas, oil or water company threatened to shut off services in your home? No 12/25/2024 Depression Answer Date Recorded Patient Health Questionnaire-2 Score 0 06/20/2024 Internet Access Answer Date Recorded Internet Access Q1 No 12/25/2024 Internet Access Q2 I do not want or need it 09/2024 Sex and Gender Information Value Date Recorded Sex Assigned at Male 07/26/2022 10:16 AM EDT Legal Sex Male 10:16 AM EDT Gender Identity Male 07/26/2022 10:16 AM EDT Sexual Orientation Straight 07/26/2022 10 :16 AM EDT Last Filed Vital Signs Vital Sign Reading Time Taken Comments Blood Pressure 150/90 12/25/2024 1:13 PM EDT Pulse 66 12/25/2024 1:04 PM EDT Temperature 37.2 ??C (98.9 ??F) 12/25/2024 1:04 PM ED T Respiratory Rate 20 12/25/2024 1:04 PM EDT Oxygen Saturation 98% 12/25/2024 1:04 PM EDT Inhaled Oxygen Concentration - - Weight 125 kg (276 lb 3.2 oz) 12/25/2024 1:04 PM EDT Height 175.3 cm (5' 9 ) 12/25/2024 1:04 PM EDT Body Mass Index 40.79 12/25/2024 1:04 PM EDT Plan of Treatment Health Maintenance Due Date Last Done Comments CT Colonography 1963 FIT DNA/Cologuard 1963 FIT 1963 FOBT 1963 Sigmoidoscopy 1963 Depression Screening 06/20/2025 06/20/2024, 06/20/20 Alcohol/Substance Use Screening 09/25/2025 09/25/2024 SDOH Screening 12/25/2025 12/25/2024 Tobacco Screening 12/25/2025 12/25/2024 Lipid Panel 10/12/2028 10/12/2023, 10/28, 12/21/2021 Colonoscopy 04/13/2029 04/13/2024, 09/22/2021 Colorectal Cancer Screening 04/13/2029 DTaP/Tdap/Td Vaccines (4 - Td or Tdap) 06/22/2034 06/22/2024, 06/21/2022, 01/05/2012, Additional history exists HIV Screening Completed 11/26/2019 Zoster Vaccines Completed 09/08/2021, 07/01/2021 Hepatitis C Screening Completed 11/23/2022, 020 Pneumococcal Vaccine: 50+ Years Completed 12/12/2023, 02/13/2014 COVID-19 Vaccine Completed 06/20/2024, 05/2023, 09/22/2022, Additional history exists Influenza Vaccine Completed 06/20/2024, , 06/21/2022, Additional history exists RSV Patients and Patients Aged 60 years or older Completed 06/22/2024 HIB Vaccines Aged Out No longer eligi [...] patient's age to complete this topic Meningococcal Vaccine Aged Out No adan jennifer eligible based on patient's age to complete this topic RSV under 20 months Aged Out No longe r eligible based on patient's age to complete this topic Rotavirus Vaccines Aged Out No longer eligible based on patient's age to complete this topic Goals Goal Patient Goal Type Associated Problems Recent Progress Patient-Stated? Author Blood Pressure < 140/90 Blood Pressure 150/90( 025 1:13 PM EDT) No Sotero Garcias, Maria E Procedures Procedure Name Priority Date/Time Associated Diagnosis Comments COLONOSCOPY Routine 04/13/2024 LIPID PANEL WITH REFLEX TO DIRECT LDL Routine 10/12/2023 8:40 AM EST Hypertension, unspecified type HEPATITIS C AB W/REFL TO HCV RNA, QN, PCR Routine 11/23/2022 11:46 AM EST [facility] HISTORICAL HIV AB/AG Routine 11/26/2019 7:15 AM EST from Last 3 Months or Most Recently Relevant to Health Maintenance Results * Colonoscopy (04/13/2024) Colonoscopy Normal Normal 04/13/2024 us Historical Provider HEALTH MAINTENANCE Final Result * (ABNORMAL) Lipid Panel with Reflex to Direct LDL (10/12/2023 8:40 AM EST) Triglycerides 124 <150 mg/dL [facility] Comment:Desirable Triglyceri de: less than 150 mg/dLBorderline High Triglyceride 150-199 mg/dLHigh Triglyceride: 200-499 mg/dLVery High Triglyceride: greater than or equal to 5OO mg/dL Cholesterol 171 <200 mg/dL [facility] Comment:Desirable Cholestero l: less than 200 mg/dLBorderline High Cholesterol: 200-239 mg/dLHigh Cholesterol: greater than 239 mg/dL LDL Cholesterol Calculated 112(H) <100 mg/dL [facility] Comment:Desirable LDL: less than 100 mg/dLNear Optimal/Above Optimal LDL: 110- 129 mg/dLBorderline High LDL: 130-159 mg/dLHigh LDL: 160-189 mg/dLVery High LDL: greater than or equal to 190 mg/dL HDL Cholesterol 35(L) >40 mg/dL [facility] Comment:Desirable HDL: great er than 40 mg/dL Note: This HDL assay may give artificially low results in patients with liver disease. Blood 10/12/2023 8:40 AM EST 10/12/2023 8:40 AM EST Kristen Cruz MD LAB BLOOD ORDERABLES Final Resul t [facility] [address] [place] [phone] * Hepatitis C Antibody with Reflex to HCV, RNA, Quantitative, Real-Time PCR (11/23/2022 11:46 AM EST) Hepatitis C Antibody NON-REACT WOO NON-REACT WOO [employer] [place] [employer] Index 0.06 <1.00 [employer] [place] [employer] Comment: HCV antibody was non-reactive. There is no laboratory evidence of HCV infection. In most cases, no further action is required. However, if recent HCV exposure is suspected, a test for HCV RNA (test code 70565) is suggested. For additional information please refer to http://education.[employer]/faq/FOG12k9 (This link is being provided for informational/ educational purposes only.) 11/23/2022 11:4 6 AM EST 11/23/2022 11:47 AM EST Kristen Cruz MD LAB BLOOD ORDERABLES Final Resul t [facility] [address] [facility], 3rd [address], [place] [address] [facility] [address], ([address]) [place] [address] * HIV AB/AG (11/26/2019 7:15 AM EST) HIV AG/AB NONREACTIVE [facility] Comment: HIV-1 p24 Ag and/or HIV-1/HIV-2 Ab not detected. ?? A test result that is nonreactive does not exclude the possibility of exposure to or infection with HIV-1 and/or HIV-2. Nonreactive results in this assay for individuals with prior exposure to HIV-1 and/or HIV-2 may be due to antigen and antibody levels that are below the limit of detection of this assay. ?? The [employer] Consumer Relations Specialist HIV Ag/Ab Combo assay result and supplemental assay results should be interpreted in conjunction with the patient's clinical presentation, history and other laboratory results. ??If the results are inconsistent with clinical evidence, additional testing is suggested to confirm the result. 11/26/2019 7:15 AM EST Kristen Cruz MD HISTORICAL/NON ORDERABLE LABS Fi nal Result [facility] [address] from Last 3 Months or Most Recently Relevant to Health Maintenance [facility] ST[facility] Care Teams Motor Vehicle Dispatcher Relationship Specialty Start Date End Date Kristen Cruz MD [address] [place] [phone] PCP - General Family Medicine 09/26/18 Sotero Garcias, PharmD [address] [place] [phone] Pharmacist Internal Medicine 07/11/23
--- OUTSIDE RECORDS SUMMARY | 2024-12-25 15:42 | XMS_ITS | Encounter Summary ---
Author Organization [employer] Address [address] [facility] 7t [place] [address] Care Team Providers Care Financial Assistance Advisor Name Role Phone Kristen Cruz MD Primary Care Provider [phone] Sotero Garcias PharmD Unavailable [phone] Encounter Details Date Type Department Care Team (Latest Contact Info) Description 12/25/2024 Travel Social History Tobacco Use Types Packs/Day Years [...] Diagnoses Not on filedocumented in this encounter Additional Health Concerns Assessment Noted Time PHQ-9 Depression Total Score: 0 06/20/20 24 9:02 AM EDT documented as of this encounter Care Teams Financial Assistance Advisor Relationship Specialty Start Date End Date Kristen Cruz MD [address] [place] [address] PCP - General Family Medicine 09/26/18 Sotero Garcias, PharmD [address] [place] [address] Pharmacist Internal Medicine 07/11/23 documented as of this encounter
--- OUTSIDE RECORDS SUMMARY | 2024-12-25 15:42 | XMS_ITS | Encounter Summary ---
Author Organization [employer] Address [address] [facility] 7t [place] [address] Care Team Providers Care Shingle Inspector Name Role Phone Kristen Cruz MD Primary Care Provider [phone] Sotero Garcias PharmD Unavailable [phone] Reason for Visit * Reason Comments Med Refill Encounter Details Date Type Department Care Team ([facility] st Contact Info) Description 03/10/2024 Refill [facility] [address] [place], [place] [phone] Kristen Cruz MD [address] [place], [place] [phone] Social History Tobacco Use Types Packs/Day Years Used Date Smoking Tobacco: Never Smokeless Tobacco: Never Alcohol Use Standard Drinks/Week Comments Not Currently 0 (1 standard drink = 0.6 oz pur e alcohol) Depression Answer Date Recorded Patient Health Questionnaire-9 Score 0 03/13/2024 Patient Health Questionnaire-9 Score 0 03/13/2024 Last PHQ-9: Questionnaire Data Not on file 0 03/13/2024 Housing Stability Answer Date Recorded What is your housing situation today? I have rebecatrung harvey 08/09/[address] you li ve. Do you have problems with any of the following? None of the above 08/09/2023 Food Insecurity Answer Date Recorded Within the past 12 months, y ou worried that your food would run out before you got money to buy more: Never True 08/09/2023 Within the past 12 months,th e food you bought just didn't last and you didn't have enough money to get more: Never True Transportation Answer Date Recorded In the past 12 months, has l ack of transportation kept you from medical appts, meetings, work or from getting things needed for daily living? No 08/09/2023 Utilities Answer Date Recorded In the past 12 months, has t he electric, gas, oil or water company threatened to shut off services in your home? No 08/09/2023 Depression Answer Date Recorded Patient Health Questionnaire-2 Score 0 03/13/2024 Sex and Gender Information Value Date Recorded [...] Noted Time PHQ-9 Depression Total Score: 0 08/09/20 23 2:58 PM EST documented as of this encounter Care Teams Shingle Inspector Relationship Specialty Start Date End Date Kristen Cruz MD [address] [place] [address] PCP - General Family Medicine 09/26/18 Sotero Garcias, NaylaD [address] [place] [address] Pharmacist Internal Medicine 07/11/23 documented as of this encounter
--- OUTSIDE RECORDS SUMMARY | 2024-12-25 15:42 | XMS_ITS | Encounter Summary ---
Author Organization [employer] Address [address] [facility] 7t [place] [address] Care Team Providers Care Plate Filler Name Role Phone Kristen Cruz MD Primary Care Provider [phone] Sotero Garcias PharmD Unavailable [phone] Reason for Visit * Reason Comments follow up HTN Encounter Details Date Type Department Care Team (Latest Contact Info) Description 12/25/2024 1:00 PM EDT Office Visit [facility] [address] [place], [place] [phone] Kristen Cruz MD [address] [place], [place] [phone] Hypertension, unspecified type (Primary Dx); Impaired fasting glucose; Class 3 severe obesity due to excess calories with serious comorbidity and body mass index (BMI) of 40.0 to 44.9 in adult (CMS/HCC); Dyslipidemia; Chronic low back pain, unspecified back pain laterality, unspecified whether sciatica present; Lumbar radiculopathy Social History Tobacco Use Types Packs/Day Years [...] AM EDT documented as of this encounter Last Filed Vital Signs Vital Sign Reading [...] Mass Index 40.79 12/25/2024 1:04 PM EDT documented in this encounter Miscellaneous Notes * Assessment & Plan Note - Josiane Jose MA - 12/25/2024 2:07 PM EDTAssociated Problem(s): Lumbar radiculopathy - Prescribed traMADol (Ultram) 50 MG tablet 12/25/24 * Assessment & Plan Note - Josiane Jose MA - 12/25/2024 1:24 PM EDTAssociated Problem(s): Dyslipidemia - last lipid profile in Oct 2023 - 10-year ASCVD risk suggests statin-benefit group, moderate intensity - continue atorvastatin 10 mg at bedtime - Prescribed tramadol 50 mg 12/25/24 * Assessment & Plan Note - Josiane Jose MA - 12/25/2024 1:23 PM EDTAssociated Problem(s): Chronic low back pain - acute exacerbation in November 2023 and treated with tramadol - stable / back to baseline at this time - Prescribed tramadol 50 mg 12/25/24 * Assessment & Plan Note - Josiane Jose MA - 12/25/2024 1:23 PM EDTAssociated Problem(s): Obesity -started Wegovy since January 2024 -will switch to lowest dose of Zepbound -will increase Zepbound dose cautiously, as tolerated. - continue working on lifestyle modifications * Assessment & Plan Note - Josiane Jose MA - 12/25/2024 1:22 PM EDTAssociated Problem(s): HTN (hypertension) - goal BP < 140/90 per JNC8, [...] -Follow-up in 3-6 months or sooner prn documented in this encounter Plan of Treatment Not on file documented as of this encounter Goals Goal Patient Goal Type Associated Problems Recent Progress Patient-Stated? Author Blood Pressure < 140/90 Blood Pressure 150/90( 025 1:13 PM EDT) No Sotero Garcias, Maria E documented as of this encounter Visit Diagnoses Diagnosis Hypertension, unspecified type- Primary Impaired fasting glucose Class 3 severe obesity due to excess calories with serious comorbidity and body mass index (BMI) of 40.0 to 44.9 in adult ([facility]) Dyslipidemia Other and unspecified hyperlipidemia Chronic low back pain, unspecified back pain laterality, unspecified whether sciatica present Lumbar radiculopathy Thoracic or lumbosacral neuritis or radiculitis, unspecified documented in this encounter Additional Health Concerns Assessment Noted Time PHQ-9 Depression Total Score: 0 06/20/20 24 9:02 AM EDT documented as of this encounter Care Teams Plate Filler Relationship Specialty Start Date End Date Kristen Cruz MD [address] [place] [phone] PCP - General Family Medicine 09/26/18 Sotero Garcias, NaylaD [address] [place] [phone] Pharmacist Internal Medicine 07/11/23 documented as of this encounter
--- OUTSIDE RECORDS SUMMARY | 2024-12-25 15:42 | XMS_ITS | Encounter Summary ---
Author Organization [facility] Address [address] [place] [address] Care Team Providers Care Is/It Project Manager Name Role Phone Unavailable Primary Care Provider Unavailabl e Encounter Details Date Type Department Care Team (Late st Contact Info) Description 08/30/2024 Lab Requisition [facility] - Main Lab [address] [facility] [place] [address] Marlo Pizarro PA [address] [place] [phone] Other microscopic hematuria Social History Tobacco Use Types Packs/Day Years Used Date Smoking Tobacco: Never Assessed Sex and Gender Information Value Date Recorded Sex Assigned at Not on file Legal Sex Male 1:00 AM EST Gender Identity Not on file Sexual Orientation Not on file documented as of this encounter Plan of Treatment Not on file documented as of this encounter Procedures Procedure Name Priority Date/Time Associated Diagnosis Comments AP OUTSIDE CONSULT Routine 08/20/2024 12 :00 AM EST Other microscopic hematuria documented in this encounter Results * Anatomic pathology outside consult (08/20/2024 12:00 AM EST) Final Diagnosis Urine, Voided: Negative for high-grade urothelial carcinoma. 09/14/2024 3:26 PM EST [facility] Clinical Information [id number] Cytology w/reflex [employer]ro[employer]ion. 09/14/2024 3:26 PM EST [facility] Gross Description A. Urine, Voided, : [id number] RECD 1 TP SLIDE 09/14/2024 3:26 PM EST [facility] Disclaimer Technical pathology services provided by [facility] at [address], [place] [address] (CLIA #[id number] molly Morrison MD, Wire Twisting Machine Operator) Unless otherwise specified, all tissue is 10% NB formalin fixed and paraffin embedded. 09/14/2024 3:26 PM EST [facility] Tissue Urine specimen from urethra / Unknown 08/20/2024 08/30/2024 11:06 AM EST us [facility] GIRAL[facility] PATHOLOGY ORDERAB LES Final Result [facility] [address] [place] [address], documented in this encounter Visit Diagnoses Diagnosis Other microscopic hematuria documented in this encounter
--- OUTSIDE RECORDS SUMMARY | 2024-12-25 15:42 | XMS_ITS | Encounter Summary ---
Author Organization [employer] Address [address] [facility] 7t [place] [address] Care Team Providers Care Inspector Precision Name Role Phone Kristen Cruz MD Primary Care Provider [phone] Sotero Garcias PharmD Unavailable [phone] Encounter Details Date Type Department Care Team (Late st Contact Info) Description 12/15/2023 Orders Only [facility] MED[facility]INE [address] [place], [place] [phone] Kristen Cruz MD [address] [place], [place] [phone] Social History Tobacco Use Types Packs/Day Years Used Date Smoking Tobacco: Never Smokeless Tobacco: Never Alcohol Use Standard Drinks/Week Comments Not Currently 0 (1 standard drink = 0.6 oz pur e alcohol) Depression Answer Date Recorded Patient Health Questionnaire-9 Score 0 08/09/2023 Patient Health Questionnaire-9 Score 0 08/09/2023 Last PHQ-9: Questionnaire Data Not on file 1 10/09/2022 Housing Stability Answer Date Recorded What is your housing situation today? I have rebeca harvey 08/09/[address] you [...] Date Recorded Patient Health Questionnaire-2 Score 0 08/09/2023 Sex and Gender Information Value Date Recorded [...] documented as of this encounter Care Teams Inspector Precision Relationship Specialty Start Date End Date Kristen Cruz MD [address] [place] [address] PCP - General Family Medicine 09/26/18 Sotero Garcias, NaylaD [address] [place] [address] Pharmacist Internal Medicine 07/11/23 documented as of this encounter
--- OUTSIDE RECORDS SUMMARY | 2024-12-25 15:42 | XMS_ITS | Encounter Summary ---
Author Organization [employer] Address [address] [facility] 7t [place] [address] Care Team Providers Care Vegetable Vendor Name Role Phone Kristen Cruz MD Primary Care Provider [phone] Sotero Garcias PharmD Unavailable [phone] Reason for Visit * Reason Comments Med Refill Encounter Details Date Type Department Care Team (Late st Contact Info) Description 04/10/2024 Refill [facility] [address] [place], [place] [phone] Kristen Cruz MD [address] [place], [place] [phone] Social History Tobacco Use Types Packs/Day Years [...] Noted Time PHQ-9 Depression Total Score: 0 03/13/20 24 11:09 AM EDT documented as of this encounter Care Teams Vegetable Vendor Relationship Specialty Start Date End Date Kristen Cruz MD [address] [place] [address] PCP - General Family Medicine 09/26/18 Sotero Garcias, NaylaD [address] [place] [address] Pharmacist Internal Medicine 07/11/23 documented as of this encounter
[2024-12-25 18:00] LABS: Creatinine Urine 125.82 mg/dL; Microalbum/Creatinine Ratio Ur 11.9 ug/mg cr (<30)
[2024-12-25 18:04] LABS: Alanine Aminotransferase 22 U/L (0-40); Albumin Level 4.1 g/dL (3.5-5.0); Alkaline Phosphatase 103 U/L (39-117); Anion Gap 10 (12-20); Aspartate Amino Transferase 28 U/L (5-37); Bilirubin Direct 0.2 mg/dL (0.0-0.5); Bilirubin Total 0.4 mg/dL (0.0-1.0); Blood Urea Nitrogen 15 mg/dL (9-16); Calcium 9.1 mg/dL (8.4-10.2); Carbon Dioxide 25 mmol/L (22-29); Chloride 107 mmol/L (96-108); Cholesterol 151 mg/dL (<200); Estimated Glomerular Filt Rate > 60; Glucose Random 75 mg/dL (60-115); HDL Cholesterol 42 mg/dL (>40); LDL Cholesterol Calculated 92 mg/dL (<100); Potassium 4.1 mmol/L (3.3-5.1); Sodium 138 mmol/L (135-145); Total Protein 7.6 g/dL (6.5-8.0); Triglycerides 88 mg/dL (<150)
[2024-12-25 18:06] LABS: Vitamin D 25-OH Total 26.3 ng/mL (>30)
[2024-12-25 18:30] LABS: Estimated Average Glucose 111 mg/dL; Hemoglobin A1C 148.1845 umol/L; Hemoglobin A1c % 5.5 % (<6.0); Total Hemoglobin (HGBA1C) 4100.0811 umol/L
[2024-12-25 20:20] LABS: Reflex LDLD? No
== END 2024-12-25 13:21 | disposition home or self-care (01) ==
LOC: HO.HHCL 13:20
PROVIDERS: Visit Provider Family Medicine
DX: E78.5 Hyperlipidemia, unspecified (principal); I10 Essential (primary) hypertension; E55.9 Vitamin D deficiency, unspecified; E66.813 Obesity, class 3; E66.01 Morbid (severe) obesity due to excess calories; Z68.41 Body mass index [BMI] 40.0-44.9, adult
CPT/HCPCS: 36415; 80053; 80061; 82043; 82248; 82306; 82570; 83036

== ENCOUNTER 2025-02-22 07:19 | Outpatient (REF) | payer MEDICAID, SELFPAY ==
[2025-02-22 07:34] LABS: MANUAL DIFF FLAG NO
[2025-02-22 07:59] LABS: Basophils Percent Auto 0.5 % (0-2); Eosinophils Absolute Auto 0.1 X10*3/uL (0.0-0.4); Eosinophils Percent Auto 1.1 % (0-4); Imm Gran Abs Auto 0.06 X10*3/uL (0.00-0.03); Imm Gran Pct Auto 0.7 % (0.0-0.4); Lymphocytes Absolute Auto 2.2 X10*3/uL (1.2-4.9); Lymphocytes Percent Auto 26.6 % (20-40); Mean Corpuscular HGB Conc 33.3 g/dl (31.0-36.0); Mean Corpuscular Hemoglobin 29.6 pg (27.0-33.0); Mean Corpuscular Volume 88.9 fL (80.0-98.0); Mean Platelet Volume 10.4 fL (9.4-12.4); Monocytes Absolute Auto 0.5 X10*3/uL (0.1-1.2); Monocytes Percent Auto 6.3 % (2-11); Neutrophils Absolute Auto 5.3 x10*3/uL (2.0-8.3); Neutrophils Percent Auto 64.8 % (45-73); Platelet Count 247 X10*3/uL (160-400); Red Cell Distribution Width 13.2 % (11.0-16.0); White Blood Count 8.1 X10*3/uL (4.8-10.8)
[2025-02-22 08:28] LABS: Anion Gap 9 (12-20); Blood Urea Nitrogen 18 mg/dL (9-16); Calcium 9.3 mg/dL (8.4-10.2); Carbon Dioxide 28 mmol/L (22-29); Chloride 106 mmol/L (96-108); Estimated Glomerular Filt Rate > 60; Glucose Random 101 mg/dL (60-115); Potassium 4.6 mmol/L (3.3-5.1); Sodium 138 mmol/L (135-145)
== END 2025-02-22 07:20 | disposition home or self-care (01) ==
LOC: HO.LAB 07:19
PROVIDERS: PCP Family Medicine; Visit Provider Clinical Nurse Specialist Psychiatric/Mental Health
DX: Z79.899 Other long term (current) drug therapy (principal)
CPT/HCPCS: 36415; 80048; 85025

== ENCOUNTER 2025-03-24 09:32 | Emergency (ER) | payer MEDICAID, SELFPAY ==
[2025-03-24 09:35] VITALS: BP 153/83; PULSE 48; RESP 18; TEMP 36.6; O2SAT 97; BMI 41.3
--- NOTE | 2025-03-24 09:59 | ED_ITS ---
HPI - General Adult General Chief complaint: Back Pain/Injury Stated complaint: back pain Time Seen by Provider: 03/24/25 09:56 Source: patient and family (patient's ) Mode of arrival: ambulatory Limitations: no limitations History of Present Illness ED Provider: Lindy Niño PA-C HPI narrative: Patient is a 59 year old assigned male at with a history of HTN, KANWAL, GERD, asthma, and chronic low back pain for which he follows with [facility], presenting to the emergency department today with right sided low back pain. Patient states that he got up yesterday and felt immediately pulling in the right low back that has radiated down his right leg. Patient states that he cannot get into [facility] until April. Patient denies any dizziness, lightheadedness, abdominal pain, nausea, vomiting, fever, chills, blurry vision, double vision, loss of vision, chest pain, difficulty breathing, shortness of breath, night sweats, pain with urination, increased urinary frequency, increased urinary urgency, blood in his urine or stool, syncope or a near syncopal episode, bowel incontinence, bladder incontinence, or any other complaints at this time. Relieving factors: none Exacerbating factors: movement Associated symptoms: denies other symptoms Treatments prior to arrival: none Related Data Home Medications ?Medication ?Instructions ?Recorded ?Confirmed loratadine 10 mg tablet 10 mg PO QAM PRN Allergy Sym ptoms 11/16/23 04/13/24 fluticasone 500 mcg-salmeterol 50 1 ea inhalation BID 04/13/24 04/13/24 mcg/dose blistr powdr for inhalation (Advair Diskus) lisinopril 40 mg tablet 40 mg PO DAILY 04/13/2403/26 montelukast 10 mg tablet 10 mg PO BEDTIME 04/13/24 (Singulair) semaglutide (weight loss) 0.25 mg subcut 04/27/24 mg/0.5 mL subcutaneous pen injector (Isaccvy) albuterol sulfate 2.5 mg/3 mL 2.5 mg inhalation Q4H [place] asthma 09/24/24 (0.083 %) solution for nebulization aripiprazole 10 mg tablet 10 mg PO DAILY 09/24/24 atorvastatin 10 mg tablet 10 mg PO DAILY 09/24/24 escitalopram oxalate 10 mg tablet 10 mg PO DAILY 09/24 famotidine 20 mg tablet 20 mg PO BID 09/24/24 lidocaine 5 % topical patch 1 patch topical DAILY 08/28 tamsulosin 0.4 mg capsule 0.4 mg PO BEDTIME 09/24/24 tiotropium bromide 18 mcg capsule 1 cap inhalation QAM 09/24/24 with inhalation device (Spiriva with HandiHaler) zolpidem 10 mg tablet 10 mg PO BEDTIME PRN insomni a 09/24/24 Previous Rx's ?Medication ?Instructions ?Recorded acetaminophen 500 mg tablet 1,000 mg (2 x 500 mg) PO Q ID PRN 04/28/21 (Tylenol Extra Strength) fever or pain #14 tabs albuterol sulfate 90 mcg/actuation 2 puff inhalation Q ID PRN 02/27/24 aerosol inhaler (Ventolin HFA) shortness of breath or wheezing 30 days #18 grams budesonide-formoterol HFA 160 2 puff inhalation BID 30 days 09/24/24 mcg-4.5 mcg/actuation aerosol #10.2 grams inhaler (Symbicort) cyclobenzaprine 5 mg tablet 5 mg PO TID PRN low back p ain 7 03/24/25 days #21 tabs prednisone 20 mg tablet 20 mg PO DAILY 7 days #7 tab s 03/24/25 Allergies Allergy/AdvReac Type Severity Reaction Status Date / Time No Known Allergies (NO KNOWN Allergy Unknown unknown Verified 03/24/25 09:37 ALLERGIES) Review of Systems Constitutional: Constitutional: Reports no additional constitutional complaints, Denies chills, Denies fever(s) and Denies night sweats Eyes: Eyes: Reports no additional eye complaints, Denies blurry vision, Denies change in vision, Denies diplopia, Denies eye discharge, Denies loss of vision and Denies eye pain ENT: Denies dizziness Cardiovascular: Cardiovascular: Reports no additional cardiovascular complaints, Denies chest pain, Denies lightheadedness, Denies Loss of Consciousness and Denies dyspnea Respiratory: Respiratory: Reports no additional respiratory complaints and Denies dyspnea Gastrointestinal: Gastrointestinal: Reports no additional gastrointestinal complaints, Denies abdominal pain, Denies melena, Denies hematochezia, Denies change in bowel habits and Denies change in stool character Genitourinary: Genitourinary: Reports no additional male genitourinary complaints, Denies hematuria, Denies oliguria, Denies difficulty urinating, Denies dysuria, Denies urinary frequency, Denies urinary hesitancy, Denies urinary incontinence and Denies urinary urgency Musculoskeletal: Musculoskeletal: Reports no additional musculoskeletal complaints, Reports back pain, Denies numbness and Denies tingling Neurologic: Denies dizziness, Denies loss of vision, Denies numbness and Denies tingling Psychiatric: Psychiatric: Reports no additional psychiatric complaints Endocrine: Endocrine: Reports no additional endocrine complaints Hematologic/Lymphatic: Hematologic/Lymphatic: Reports no additional hematologic/lymphatic complaints Allergic/Immunologic: Allergic/Immunologic: Reports no additional allergic/immunologic complaints PMFSH Past Medical History Attestation statement: The following information was validated with the patient. (patient's validated all information) Source: old records reviewed, obtained from family (patient's provided additional history and confirmed the history provided by the patient. ) and nursing notes reviewed Medical History HTN (hypertension) KANWAL on CPAP Asthma Tubular adenoma of colon GERD (gastroesophageal reflux disease) BPH (benign prostatic hyperplasia) Low back pain Surgical History Previous back surgery History of colonoscopy History of esophagogastroduodenoscopy (EGD) History of inguinal hernia repair, bilateral History of hemorrhoidectomy History of carpal tunnel release of both wrists History of nasal surgery Family History Family History Family/Other No pertinent past medical history Social History Social History Alcohol intake: current Alcohol intake frequency: does not drink Patient Tobacco Use Status: Never used Tobacco Smoked in Last 30 Days: No Use of substances other than those prescribed or required for medical reasons: No Advance Directives: No Advance Directives Information Provided: Yes Physical Exam ED Vital Signs: Vital Signs - 24 hr 03/24/25 09:35 03/24/25 10:00 03/24/25 10:16 Temperature 97.8 F 98.5 F 98.5 F Pulse Rate 48 L 52 52 Respiratory Rate 18 19 19 Blood Pressure 153/83 H 158/84 H 158/84 H Pulse Oximetry 97 95 95 Oxygen Delivery Method Room Air Room Air Room Air BMI result Body Mass Index 41.3 Const General: cooperative, no acute distress, alert and awake Nutritional Appearance: well nourished Orientation/consciousness: patient oriented x3 HENMT Head: Yes normal to inspection and Yes atraumatic Ears: hearing grossly normal bilaterally and external ears normal General nose exam: Normal external nose present, no nasal discharge noted and no epistaxis Face and sinus: Yes normal facial exam, No abrasion and No laceration Mouth: Normal oral and palatal mucosa present, no drooling and no muffled voice Eyes General: appearance normal, both eyes and all related structures Periorbital: periorbital findings normal Eyelids: Yes eyelids normal Conjunctivae: conjunctivae normal Pupils: Equal, round and reactive pupils present EOM: EOMs intact bilaterally Neck Neck: Yes normal visual inspection, Yes full ROM and Yes no lymphadenopathy Resp Effort & Inspection: normal respiratory effort and able to speak in complete sentences Neuro General: patient oriented x3, moves all extremities and CN's II-XI intact bilaterally Cranial nerves: Yes Equal, round and reactive pupils present Cognition (Neuro): normal cognition Extrem General: Yes normal to inspection, Yes full ROM and Yes capillary refill normal Psych Appearance: grossly normal Mental Status: mental status grossly normal Affect: normal affect Attitude: cooperative Thought process: Normal thought process present Thought content: Normal thought content present Insight: Good insight present (Psych) Medical Decision Making Medical Decision Making MDM Narrative: Patient is a 59 year old assigned male at with a history of HTN, KANWAL, GERD, asthma, and chronic low back pain for which he follows with [facility], presenting to the emergency department today with right sided low back pain. Patient's physical exam was unremarkable. Patient's clinical presentation is most consistent with acute on chronic low back pain. I explained my physical exam findings to the patient and the patient's . I answered all questions asked by the patient and the patient's . I stressed the importance of the patient taking his medication as directed (either prescribed or as the over the counter packaging recommends). I stressed the importance of the patient following up with his primary care provider and with [facility]. I stressed the importance of the patient returning to the emergency department immediately if his symptoms were to worsen or if he were to develop any dizziness, shortness of breath, difficulty breathing, chest pain, blurry vision, loss of vision, nausea, vomiting, abdominal pain, fever, chills, back pain, or any other complaints. Patient verbalized agreement and understanding with this treatment plan and discharge. Differential Diagnosis Differential Diagnoses: The differential diagnosis associated with the presentation includes Acute on chronic low back pain Mechanical low back pain Admission/Observation Consideration of admission/observation: Escalation of care including admission/observation considered Patient would have been admitted to the hospital had his clinical presentation warranted hospital admission. Independent Historian Clinical information obtained from an independent historian. History obtained from or confirmed by: Spouse (Patient's provided additional history and confirmed the history provided by the patient. ) Prescription Management I considered prescription management with: Pain Medication (patient prescribed pain medication) Discharge Plan Discharge Clinical Impression: Low back pain Patient Disposition: Home, Self-Care Instructions: Acute Low Back Pain (ED) Additional Instructions: [facility]. Return to the emergency department immediately if your symptoms worsen or if you develop any numbness, tingling, dizziness, shortness of breath, difficulty breathing, chest pain, blurry vision, loss of vision, nausea, vomiting, abdominal pain, fever, chills, back pain, or any other complaints. Please see the information below about our Patient Portal. If you are not yet enrolled in the [facility] Patient Portal, you will receive an enrollment email invitation following your visit to any [facility] setting. You may also self-enroll in the Patient Portal by visiting our website: [email or web address] The following information is required to access the Patient Portal: - Your [facility] Medical Record Number - Your personal home email address (must match what is in your electronic medical record, Registration staff can assist with this) - Name - Date of Capabilities of the Patient Portal: - Message some providers - View upcoming appointments - Access your health summary, medical history, and visit history - View current conditions and allergies - View procedure and lab results - View your medications, including guidelines, side effects, and precautions - Complete pre-appointment questionnaires requested by your provider - Ready summary reports of your office visits and procedures To access the Patient Portal Mobile Lyla, follow these directions: - Search [employer] in the Lyla Store or Google Play Store - Download the Lyla - Search for [facility] - Enter your login/password Prescriptions: New cyclobenzaprine 5 mg tablet 5 mg PO TID PRN (Reason: low back pain) 7 Days Qty: 21 0RF prednisone 20 mg tablet 20 mg PO DAILY 7 Days Qty: 7 0RF No Action acetaminophen [Tylenol Extra Strength] 500 mg tablet 1,000 mg PO QID PRN (Reason: fever or pain) Qty: 14 0RF lisinopril 40 mg tablet 40 mg PO DAILY fluticasone propion-salmeterol [Advair Diskus] 500-50 mcg/dose blister with device 1 ea INHALATION BID montelukast [Singulair] 10 mg tablet 10 mg PO BEDTIME loratadine 10 mg tablet 10 mg PO QAM PRN (Reason: Allergy Symptoms) albuterol sulfate [Ventolin HFA] 90 mcg/actuation HFA aerosol inhaler 2 puff inhalation QID PRN (Reason: shortness of breath or wheezing) 30 Days Qty: 18 11RF Wegovy 0.25 mg/0.5 mL pen injector subcut tiotropium bromide [Spiriva with HandiHaler] 18 mcg capsule, w/inhalation device 1 cap inhalation QAM tamsulosin 0.4 mg capsule 0.4 mg PO BEDTIME famotidine 20 mg tablet 20 mg PO BID zolpidem 10 mg tablet 10 mg PO BEDTIME PRN (Reason: insomnia) lidocaine 5 % adhesive patch,medicated 1 patch topical DAILY atorvastatin 10 mg tablet 10 mg PO DAILY albuterol sulfate 2.5 mg /3 mL (0.083 %) solution for nebulization 2.5 mg inhalation Q4H PRN (Reason: asthma) aripiprazole 10 mg tablet 10 mg PO DAILY escitalopram oxalate 10 mg tablet 10 mg PO DAILY budesonide-formoterol [Symbicort] 160-4.5 mcg/actuation HFA aerosol inhaler 2 puff inhalation BID 30 Days Qty: 10.2 11RF Referrals: Kristen Cruz MD [Primary Care Provider, Internal Medicine] Interventions: ED Discharge Assessment Last Done: 03/24/25 10:16 Discharge Date/Time: 03/24/25 10:17 Print Language: Persian
[2025-03-24 10:00] VITALS: BP 158/84; PULSE 52; RESP 19; TEMP 36.9; O2SAT 95
[2025-03-24 10:16] VITALS: BP 158/84; PULSE 52; RESP 19; TEMP 36.9; O2SAT 95
== END 2025-03-24 10:17 | disposition home or self-care (01) ==
PROVIDERS: Emergency Provider Emergency Medicine; PCP Family Medicine
DX: M54.50 Low back pain, unspecified (principal); I10 Essential (primary) hypertension; K21.9 Gastro-esophageal reflux disease without esophagitis; Z79.899 Other long term (current) drug therapy
CPT/HCPCS: 99283; 99284

== ENCOUNTER 2025-03-26 17:49 | Emergency (ER) | payer MEDICAID, SELFPAY ==
[2025-03-26 18:27] VITALS: BP 159/78; PULSE 63; RESP 16; TEMP 36.6; O2SAT 93; BMI 41.3
--- NOTE | 2025-03-26 21:28 | ED.BACK ---
HPI - Back Pain/Injury General Chief Complaint: Back Pain/Injury Stated Complaint: back pain was here on Tuesday Time Seen by Provider: 03/26/25 20:57 Source: patient and old records reviewed Mode of arrival: ambulatory Limitations: no limitations History of Present Illness ED Provider: KATIE CHEN Narrative: 59 yo male with PMH of GERD, HTN, KANWAL on CPAP, asthma here with c/o R sided low back pain starting Tuesday. He was working on his daughters care on Tuesday and thinks that's when he injured it. He is not on thinners, no IVDA. He notes it shoots down the R leg. He has had prior back surgery at [facility] 3 years ago he thinks L3-L5. He denies b/b incontinence, no saddle anesthesia. He notes he took the flexeril and prednisone but he has pain and cannot sleep. He called [facility] they cannot get him in until May. MD elicited complaint: back pain and back injury Pertinent past history: prior back pain Onset (ago): day(s) (3) Timing: constant Severity: moderate Similar Symptoms Previously: Yes Quality: sharp Location: lumbar spine Radiation: right upper leg and right leg below the knee Exacerbating factors: movement Relieving factors: immobilization Context: bending Associated symptoms: denies other symptoms Treatments prior to arrival: other medications and prescription analgesics Work related injury: No Related Data Home Medications ?Medication ?Instructions ?Recorded ?Confirmed loratadine 10 mg tablet 10 mg PO QAM PRN Allergy Symptoms 11/16/23 04/13/24 fluticasone 500 mcg-salmeterol 50 1 ea inhalation BID 04/13/24 04/13/24 mcg/dose blistr powdr for inhalation (Advair Diskus) lisinopril 40 mg tablet 40 mg PO DAILY 04/13/24 04/13/24 montelukast 10 mg tablet 10 mg PO BEDTIME 04/13/24 04/13/24 (Singulair) semaglutide (weight loss) 0.25 mg subcut 04/27/24 mg/0.5 mL subcutaneous pen injector (Wesusanavy) albuterol sulfate 2.5 mg/3 mL 2.5 mg inhalation Q4H PRN asthma 09/24/24 (0.083 %) solution for nebulization aripiprazole 10 mg tablet 10 mg PO DAILY 09/24/24 atorvastatin 10 mg tablet 10 mg PO DAILY 09/24/24 escitalopram oxalate 10 mg tablet 10 mg PO DAILY 09/24/24 famotidine 20 mg tablet 20 mg PO BID 09/24/24 lidocaine 5 % topical patch 1 patch topical DAILY 09/24/24 tamsulosin 0.4 mg capsule 0.4 mg PO BEDTIME 09/24/24 tiotropium bromide 18 mcg capsule 1 cap inhalation QAM 09/24/24 with inhalation device (Spiriva with HandiHaler) zolpidem 10 mg tablet 10 mg PO BEDTIME PRN insomnia 09/24/24 Previous Rx's ?Medication ?Instructions ?Recorded acetaminophen 500 mg tablet 1,000 mg (2 x 500 mg) PO QID PRN 04/28/21 (Tylenol Extra Strength) fever or pain #14 tabs albuterol sulfate 90 mcg/actuation 2 puff inhalation QID PRN 02/27/24 aerosol inhaler (Ventolin HFA) shortness of breath or wheezing 30 days #18 grams budesonide-formoterol HFA 160 2 puff inhalation BID 30 days 09/24/24 mcg-4.5 mcg/actuation aerosol #10.2 grams inhaler (Symbicort) cyclobenzaprine 5 mg tablet 5 mg PO TID PRN low back pain 7 03/24/25 days #21 tabs prednisone 20 mg tablet 20 mg PO DAILY 7 days #7 tabs 03/24/25 morphine 15 mg immediate release 15 mg PO Q6H PRN pain #10 tabs 03/26/25 tablet Allergies Allergy/AdvReac Type Severity Reaction Status Date / Time No Known Allergies (NO KNOWN Allergy Unknown unknown Verified 03/26/25 18:28 ALLERGIES) Review of Systems Review of Systems: Constitutional : No Weight loss, No Fever, No Chills, ENT/Mouth : No Hearing loss, No Ear Pain, No Nasal Congestion, No Sinus Pain, No Hoarseness, No sore throat, No Rhinorrhea, No Swallowing Difficulty Cardiovascular : No Chest Pain, No SOB Respiratory : No Cough, No Dyspnea Gastrointestinal : No Nausea, No Vomiting, No Diarrhea, No abdominal Pain, No Hematochezia, No Melena Genitourinary : No Dysuria, No Urinary Frequency, No Hematuria, No Urinary Incontinence, Musculoskeletal : positive back pain Skin : No Skin Lesions, No rash Neuro : No Weakness, No Numbness, No Paresthesias, no loss of bowel or bladder incontinence, no saddle anesthesia all other systems reviewed and are negative PMFSH Past Medical History Attestation statement: The following information was validated with the patient. Source: old records reviewed Medical History HTN (hypertension) KANWAL on CPAP Asthma Tubular adenoma of colon GERD (gastroesophageal reflux disease) BPH (benign prostatic hyperplasia) Low back pain Surgical History Previous back surgery History of colonoscopy History of esophagogastroduodenoscopy (EGD) History of inguinal hernia repair, bilateral History of hemorrhoidectomy History of carpal tunnel release of both wrists History of nasal surgery Family History Family History Family/Other No pertinent past medical history Social History Social History Alcohol intake: current Alcohol intake frequency: does not drink Patient Tobacco Use Status: Never used Tobacco Advance Directives: No Advance Directives Information Provided: No Do you have a plan to hurt others: No Plan Physical Exam Vital Signs: Vital Signs: Last Vital Signs Temp 97.9 F 03/26/25 18:27 Pulse 63 03/26/25 18:27 Resp 16 03/26/25 18:27 BP 159/78 H 03/26/25 18:27 Pulse Ox 93 03/26/25 18:27 O2 Del Method Room Air 03/26/25 18:27 BMI result Body Mass Index 41.3 Appearance: Alert. Oriented X3. No acute distress. Eyes: Pupils equal, round and reactive to light. ENT: Pharynx normal. Neck: Normal inspection. Neck supple. CVS: Normal heart rate and rhythm. Pulses normal. Respiratory: No respiratory distress. Breath sounds normal. Abdomen: Soft and nontender. Back: ttp along R buttock, PSIS area - RLE 5/5 walking, SILT intact, pulses intact 2+ DTR R patella Skin: Skin warm and dry. Normal skin color. Normal skin turgor. Extremities: No lower extremity edema. No calf ttp Neuro: Oriented X 3. No motor deficit. No sensory deficit. CN2-12 intact Medical Decision Making Medical Decision Making MDM Narrative: 59 yo male with PMH of GERD, HTN, KANWAL on CPAP, asthma here with c/o R leg pain s/p likely overuse/bending injury but no b/b incontinence, no saddle anesthesia who has no red flags on exam and is intact. At this time will provide short course analgesia and refer him to spine and his PCP for PT. He is agreeable, discussed pain medications and his sleep apnea. Differential Diagnosis Differential Diagnoses: The differential diagnosis associated with the presentation includes lumbar radiculopathy, sciatica, no signs of CE Admission/Observation Consideration of admission/observation: Escalation of care including admission/observation considered can ambulate can be managed as outpatient with PCP External Record Review External record reviewed: Outpatient record Prescription Management I considered prescription management with: Pain Medication Discharge Plan Discharge Clinical Impression: Lumbar radiculopathy, Sciatica Patient Disposition: Home, Self-Care Instructions: Sciatica (ED), Acute Low Back Pain (ED) Additional Instructions: return for numbness, weakness, loss of control of bowel or bladder call your doctor for physical therapy continue prednisone limit lifting to 10lbs for 2 weeks or more if pain persists return for any other worsening symptoms or concerns. Prescriptions: New morphine 15 mg tablet 15 mg PO Q6H PRN (Reason: pain) Qty: 10 0RF Rx Instructions: partial fill okay; Partial Fill upon patient request. No Action acetaminophen [Tylenol Extra Strength] 500 mg tablet 1,000 mg PO QID PRN (Reason: fever or pain) Qty: 14 0RF lisinopril 40 mg tablet 40 mg PO DAILY fluticasone propion-salmeterol [Advair Diskus] 500-50 mcg/dose blister with device 1 ea INHALATION BID montelukast [Singulair] 10 mg tablet 10 mg PO BEDTIME cyclobenzaprine 5 mg tablet 5 mg PO TID PRN (Reason: low back pain) 7 Days Qty: 21 0RF prednisone 20 mg tablet 20 mg PO DAILY 7 Days Qty: 7 0RF loratadine 10 mg tablet 10 mg PO QAM PRN (Reason: Allergy Symptoms) albuterol sulfate [Ventolin HFA] 90 mcg/actuation HFA aerosol inhaler 2 puff inhalation QID PRN (Reason: shortness of breath or wheezing) 30 Days Qty: 18 11RF Wegovy 0.25 mg/0.5 mL pen injector subcut tiotropium bromide [Spiriva with HandiHaler] 18 mcg capsule, w/inhalation device 1 cap inhalation QAM tamsulosin 0.4 mg capsule 0.4 mg PO BEDTIME famotidine 20 mg tablet 20 mg PO BID zolpidem 10 mg tablet 10 mg PO BEDTIME PRN (Reason: insomnia) lidocaine 5 % adhesive patch,medicated 1 patch topical DAILY atorvastatin 10 mg tablet 10 mg PO DAILY albuterol sulfate 2.5 mg /3 mL (0.083 %) solution for nebulization 2.5 mg inhalation Q4H PRN (Reason: asthma) aripiprazole 10 mg tablet 10 mg PO DAILY escitalopram oxalate 10 mg tablet 10 mg PO DAILY budesonide-formoterol [Symbicort] 160-4.5 mcg/actuation HFA aerosol inhaler 2 puff inhalation BID 30 Days Qty: 10.2 11RF Print Language: Chinese
[2025-03-26] MEDS: Morphine Sulfate Immed Release 15 MG TABLET PO (21:39)
[2025-03-26 21:42] VITALS: BP 158/93; PULSE 69; RESP 14; TEMP 36.4; O2SAT 98
[2025-03-26 21:43] VITALS: BP 158/93; PULSE 69; RESP 14; TEMP 36.4; O2SAT 98
== END 2025-03-26 21:44 | disposition home or self-care (01) ==
PROVIDERS: Emergency Provider Emergency Medicine; PCP Family Medicine
DX: M54.16 Radiculopathy, lumbar region (principal); M54.42 Lumbago with sciatica, left side; M54.41 Lumbago with sciatica, right side
CPT/HCPCS: 99283; 99284

== ENCOUNTER 2025-05-05 15:25 | Emergency (ER) | payer MEDICAID, SELFPAY ==
--- NOTE | ~2025-05-05 | XR_ITS ---
CLINICAL HISTORY: chest pain 2 view chest x-ray Comparison: CR/DC/SR - XR CHEST 2 VIEWS - 12/12/23 11:09 EDT Findings: The lungs are clear. Normal size heart. No acute fracture. IMPRESSION: 1. No acute findings. This document has been electronically signed by: Viki Hawkins MD on 05/05/2025 16:38:50
--- NOTE | 2025-05-05 15:27 | ECG_ITS ---
Test Reason : CP Blood Pressure : */* mmHG Vent. Rate : 70 BPM Atrial Rate : 70 BPM P-R Int : 166 ms QRS Dur : 70 ms QT Int : 354 ms P-R-T Axes : 24 15 35 degrees QTcB Int : 382 ms Normal sinus rhythm Normal ECG When compared with ECG of 26-Nov-2021 08:07, No significant change was found Referred By: Generic ED Physician Electronically Signed By: Ritesh Blackmon
[2025-05-05 15:31] VITALS: BP 163/97; PULSE 84; RESP 16; TEMP 36.7; O2SAT 96; BMI 41.0
--- NOTE | 2025-05-05 15:31 | ED.GENADULT ---
HPI - General Adult General Chief complaint: Chest Pain Stated complaint: Chest pain 3 days Time Seen by Provider: 05/05/25 21:36 Source: patient Mode of arrival: ambulatory Limitations: no limitations History of Present Illness ED Provider: Dr. Meaghan Sidhu HPI narrative: 59-year-old male with history of hypertension, sleep apnea, asthma, GERD presenting with substernal chest pain, fatigue, shortness of breath particularly with exertion ongoing for the last 3 days or so. Patient states that prior to this he had been feeling well. Denies associated fever or cough. Pain in his chest is described as central, nonradiating, worse with exertion and better with rest. Has not taken anything for pain at home. Admits that he feels that it is mostly driven by his breathing. Using his inhaler without relief. No known sick contacts or travel. No lower extremity edema or pain. Related Data Home Medications ?Medication ?Instructions ?Recorded ?Confirmed loratadine 10 mg tablet 10 mg PO QAM PRN Allergy Symptoms 11/16/23 04/13/24 fluticasone 500 mcg-salmeterol 50 1 ea inhalation BID 04/13/24 04/13/24 mcg/dose blistr powdr for inhalation (Advair Diskus) lisinopril 40 mg tablet 40 mg PO DAILY 04/13/24 04/13/24 montelukast 10 mg tablet 10 mg PO BEDTIME 04/13/24 04/13/24 (Singulair) semaglutide (weight loss) 0.25 mg subcut 04/27/24 mg/0.5 mL subcutaneous pen injector (Wegovy) albuterol sulfate 2.5 mg/3 mL 2.5 mg inhalation Q4H PRN asthma 09/24/24 (0.083 %) solution for nebulization aripiprazole 10 mg tablet 10 mg PO DAILY 09/24/24 atorvastatin 10 mg tablet 10 mg PO DAILY 09/24/24 escitalopram oxalate 10 mg tablet 10 mg PO DAILY 09/24/24 famotidine 20 mg tablet 20 mg PO BID 09/24/24 lidocaine 5 % topical patch 1 patch topical DAILY 09/24/24 tamsulosin 0.4 mg capsule 0.4 mg PO BEDTIME 09/24/24 tiotropium bromide 18 mcg capsule 1 cap inhalation QAM 09/24/24 with inhalation device (Spiriva with HandiHaler) zolpidem 10 mg tablet 10 mg PO BEDTIME PRN insomnia 09/24/24 Previous Rx's ?Medication ?Instructions ?Recorded acetaminophen 500 mg tablet 1,000 mg (2 x 500 mg) PO QID PRN 04/28/21 (Tylenol Extra Strength) fever or pain #14 tabs albuterol sulfate 90 mcg/actuation 2 puff inhalation QID PRN 02/27/24 aerosol inhaler (Ventolin HFA) shortness of breath or wheezing 30 days #18 grams budesonide-formoterol HFA 160 2 puff inhalation BID 30 days 09/24/24 mcg-4.5 mcg/actuation aerosol #10.2 grams inhaler (Symbicort) cyclobenzaprine 5 mg tablet 5 mg PO TID PRN low back pain 7 03/24/25 days #21 tabs prednisone 20 mg tablet 20 mg PO DAILY 7 days #7 tabs 03/24/25 morphine 15 mg immediate release 15 mg PO Q6H PRN pain #10 tabs 03/26/25 tablet Allergies Allergy/AdvReac Type Severity Reaction Status Date / Time No Known Allergies (NO KNOWN Allergy Unknown unknown Verified 05/05/25 15:33 ALLERGIES) Review of Systems Review of Systems: as per HPI, full review of systems performed and negative but for the above mentioned pertinent positives and negatives. [facility] Past Medical History Attestation statement: The following information was validated with the patient. Medical History HTN (hypertension) KANWAL on CPAP Asthma Tubular adenoma of colon GERD (gastroesophageal reflux disease) BPH (benign prostatic hyperplasia) Low back pain Surgical History Previous back surgery History of colonoscopy History of esophagogastroduodenoscopy (EGD) History of inguinal hernia repair, bilateral History of hemorrhoidectomy History of carpal tunnel release of both wrists History of nasal surgery Family History Family History Family/Other No pertinent past medical history Social History Social History Alcohol intake: current Alcohol intake frequency: does not drink Patient Tobacco Use Status: Never used Tobacco Smoked in Last 30 Days: No Use of substances other than those prescribed or required for medical reasons: No Advance Directives: No Advance Directives Information Provided: No Do you have a plan to hurt others: No Plan Physical Exam ED Exam Exam: GENERAL: Ill-Appearing, appears uncomfortable. SKIN: Normal skin color for ethnicity, warm, dry, no rashes noted. HEENT:? Normocephalic, atraumatic, no stridor, dry mucous membranes, dentition intact, EOMI. NECK: Soft, supple, full ROM, midline structures nontender, no step-offs, no deformities, no lymphadenopathy. CHEST: Heart regular rhythm, no murmurs, symmetric chest rise and fall. PULMONARY: Clear to auscultation bilaterally, diminished at the bases, no labored breathing, no wheezes/rhales/rhonchi. ABDOMINAL: Soft, nondistended, nontender, positive bowel sounds in all quadrants. : Deferred. MUSCULOSKELETAL: Normal tone, full range of motion, no deformities, no peripheral edema. NEURO: Alert and oriented x3, CN II through XII intact, equal strength and sensation bilateral upper and lower extremities, no focal neurologic deficits.? PSYCHIATRIC: Flat affect, fluid speech, good eye contact and appropriate demeanor. Vital Signs: Vital Signs - 24 hr 05/05/25 15:31 05/05/25 20:07 Temperature 98.0 F 98.0 F Pulse Rate 84 56 Respiratory Rate 16 16 Blood Pressure 163/97 H 155/94 H Pulse Oximetry 96 99 Oxygen Delivery Method Room Air Room Air BMI result Body Mass Index 41.0 Course Course Course Narrative: Rapid medical examination performed in triage by Lindy Niño PA-C. Patient is a 59 year old assigned male at presenting to the emergency department with dizziness, chest pain, and exhaustion. Detailed physical exam and review of systems are deferred to the substance abuse clinician. EKG, labs, imaging, and swabs ordered. Patient placed back in the waiting room pending room availability and results. Medical Decision Making Medical Decision Making MDM Narrative: Patient presents today with a chief complaint of chest pain. Differential diagnosis includes, but is not limited to, acute coronary syndrome, musculoskeletal pain, pneumothorax, GERD, pleurisy, pulmonary embolism, dissection, among others. I will order EKG, chest x-ray, the laboratory workup including cardiac enzymes to further evaluate for etiology. Workup today is reassuring. Heart score is 2. EKG is nonischemic. Clinical picture is consistent with dehydration. Using shared decision making, plan for discharge home to follow-up with primary care and/or specialist.? Patient understands and agrees with plan for discharge.? Discharged home in stable condition. Differential Diagnosis Differential Diagnoses: The differential diagnosis associated with the presentation includes (as above) Admission/Observation Consideration of admission/observation: Escalation of care including admission/observation considered Lab Data MDM Lab Attestation statement: I reviewed the patient's lab results. 05/05/25 15:45 05/05/25 15:45 Labs: Lab Results 05/05/25 05/05/25 Range/Units 15:45 20:13 WBC 10.4 (4.8-10.8) X10*3/uL RBC 5.70 (4.60-5.80) X10*6/uL Hgb 16.9 (14.0-18.0) g/dl Hct 49.6 (42.0-52.0) % MCV 87.0 (80.0-98.0) fL MCH 29.6 (27.0-33.0) pg MCHC 34.1 (31.0-36.0) g/dl RDW 13.3 (11.0-16.0) % Plt Count 268 (160-400) X10*3/uL MPV 10.5 (9.4-12.4) fL Immature Gran % (Auto) 0.6 H (0.0-0.4) % Neut % (Auto) 66.2 (45-73) % Lymph % (Auto) 24.1 (20-40) % [place] % (Auto) 7.8 (2-11) % Eos % (Auto) 0.9 (0-4) % Baso % (Auto) 0.4 (0-2) % Lymph # (Auto) 2.5 (1.2-4.9) X10*3/uL [place] # (Auto) 0.8 (0.1-1.2) X10*3/uL Eos # (Auto) 0.1 (0.0-0.4) X10*3/uL Baso # (Auto) 0.0 (0.0-0.2) X10*3/uL Abs Immat Gran (auto) 0.06 H (0.00-0.03) X10*3/uL Absolute Neuts (auto) 6.9 (2.0-8.3) x10*3/uL Absolute Nucleated RBC 0.000 (0.0-0.012) X10*3/uL Nucleated RBC % (auto) 0.0 (0.0-0.2) /100WBC PT 12.2 (10.9-12.4) SEC INR 1.1 (0.9-1.1) Sodium 138 (135-145) mmol/L Potassium 4.0 (3.3-5.1) mmol/L Chloride 109 H (96-108) mmol/L Carbon Dioxide 20 L (22-29) mmol/L Anion Gap 13 (12-20) BUN 21 H (9-16) mg/dL Creatinine 1.14 (0.5-1.4) mg/dL Estim Creat Clear Calc 89.2 Estimated GFR > 60 Random Glucose 114 (60-115) mg/dL Calcium 9.4 (8.4-10.2) mg/dL Magnesium 2.3 (1.6-2.6) mg/dL Total Bilirubin 0.4 (0.0-1.0) mg/dL AST 33 (5-37) U/L ALT 46 H (0-40) U/L Alkaline Phosphatase 114 (39-117) U/L Troponin I High Sens < 2.7 2.9 (<3.5-35.0) ng/L B-Natriuretic Peptide < 10 (<100) pg/mL Total Protein 8.3 H (6.5-8.0) g/dL Albumin 4.5 (3.5-5.0) g/dL Influenza Type A (PCR) NEGATIVE (Negative) Influenza Type B (PCR) NEGATIVE (Negative) RSV RNA Qual (PCR) NEGATIVE (Negative) SARS-CoV-2 RNA (RT-PCR) NEGATIVE (Negative) Independent Interpretation I performed an independent interpretation of an: EKG and Plain X-Ray Radiology Impression Discussion of test interpretation with radiology: I have reviewed the radiologist's reading. Radiologist Impression: 2 view chest x-ray Comparison: CR/[place]/SR - XR CHEST 2 VIEWS - 12/12/23 11:09 EDT Findings: The lungs are clear. Normal size heart. No acute fracture. IMPRESSION: 1. No acute findings. This document has been electronically signed by: Viki Hawkins MD on 05/05/2025 16:38:50 Chronic Conditions Patient?s care impacted by: Hypertension and Other (asthma) Scores Heart Score History: -1- moderately suspicious ECG: -0- normal Age: -1- >45 - <65 Risk factory: -1- 1 or 2 risk factors Troponin: -0- < or = normal limit Score: 3 Risk: 1.7% Discharge Plan Discharge Clinical Impression: Exertional chest pain, Acute dehydration Patient Disposition: Home, Self-Care Instructions: Chest Pain (ED) Additional Instructions: Drink plenty of fluids over the next several days. Call your primary care doctor to arrange an appointment as soon as possible. Return to the emergency department immediately with any new or worsening symptoms including: Worsening chest pain or difficulty breathing, fevers greater than 100?, inability to tolerate food or drink, any new symptom that concerns you. Call 911 with any medical emergency. Prescriptions: No Action acetaminophen [Tylenol Extra Strength] 500 mg tablet 1,000 mg PO QID PRN (Reason: fever or pain) Qty: 14 0RF lisinopril 40 mg tablet 40 mg PO DAILY fluticasone propion-salmeterol [Advair Diskus] 500-50 mcg/dose blister with device 1 ea INHALATION BID montelukast [Singulair] 10 mg tablet 10 mg PO BEDTIME cyclobenzaprine 5 mg tablet 5 mg PO TID PRN (Reason: low back pain) 7 Days Qty: 21 0RF prednisone 20 mg tablet 20 mg PO DAILY 7 Days Qty: 7 0RF morphine 15 mg tablet 15 mg PO Q6H PRN (Reason: pain) Qty: 10 0RF Rx Instructions: partial fill okay; Partial Fill upon patient request. loratadine 10 mg tablet 10 mg PO QAM PRN (Reason: Allergy Symptoms) albuterol sulfate [Ventolin HFA] 90 mcg/actuation HFA aerosol inhaler 2 puff inhalation QID PRN (Reason: shortness of breath or wheezing) 30 Days Qty: 18 11RF Wegovy 0.25 mg/0.5 mL pen injector subcut tiotropium bromide [Spiriva with HandiHaler] 18 mcg capsule, w/inhalation device 1 cap inhalation QAM tamsulosin 0.4 mg capsule 0.4 mg PO BEDTIME famotidine 20 mg tablet 20 mg PO BID zolpidem 10 mg tablet 10 mg PO BEDTIME PRN (Reason: insomnia) lidocaine 5 % adhesive patch,medicated 1 patch topical DAILY atorvastatin 10 mg tablet 10 mg PO DAILY albuterol sulfate 2.5 mg /3 mL (0.083 %) solution for nebulization 2.5 mg inhalation Q4H PRN (Reason: asthma) aripiprazole 10 mg tablet 10 mg PO DAILY escitalopram oxalate 10 mg tablet 10 mg PO DAILY budesonide-formoterol [Symbicort] 160-4.5 mcg/actuation HFA aerosol inhaler 2 puff inhalation BID 30 Days Qty: 10.2 11RF Interventions: ED Discharge Assessment Last Done: 05/05/25 22:12 Discharge Date/Time: 05/05/25 22:12 Print Language: Iraqi
[2025-05-05 15:50] LABS: MANUAL DIFF FLAG NO
[2025-05-05 15:52] LABS: Hematocrit 49.6 % (42.0-52.0); Hemoglobin 16.9 g/dl (14.0-18.0); Imm Gran Abs Auto 0.06 X10*3/uL (0.00-0.03); Imm Gran Pct Auto 0.6 % (0.0-0.4); Lymphocytes Absolute Auto 2.5 X10*3/uL (1.2-4.9); Mean Corpuscular HGB Conc 34.1 g/dl (31.0-36.0); Mean Corpuscular Hemoglobin 29.6 pg (27.0-33.0); Mean Corpuscular Volume 87.0 fL (80.0-98.0); NRBC Abs Auto 0.000 X10*3/uL (0.0-0.012); NRBC Pct Auto 0.0 /100WBC (0.0-0.2); Platelet Count 268 X10*3/uL (160-400); Red Blood Count 5.70 X10*6/uL (4.60-5.80); White Blood Count 10.4 X10*3/uL (4.8-10.8)
[2025-05-05 16:05] LABS: Alanine Aminotransferase 46 U/L (0-40); Albumin Level 4.5 g/dL (3.5-5.0); Alkaline Phosphatase 114 U/L (39-117); Anion Gap 13 (12-20); Aspartate Amino Transferase 33 U/L (5-37); Blood Urea Nitrogen 21 mg/dL (9-16); Calcium 9.4 mg/dL (8.4-10.2); Carbon Dioxide 20 mmol/L (22-29); Chloride 109 mmol/L (96-108); Creatinine Clr Calc Pharmacy 89.2; Estimated Glomerular Filt Rate > 60; Magnesium 2.3 mg/dL (1.6-2.6); Potassium 4.0 mmol/L (3.3-5.1); Sodium 138 mmol/L (135-145); Total Protein 8.3 g/dL (6.5-8.0)
[2025-05-05 16:11] LABS: B Type Natriuretic Peptide < 10 pg/mL (<100)
[2025-05-05 16:12] LABS: Troponin-I High Sensitivity < 2.7 ng/L (<3.5-35.0)
[2025-05-05 16:22] LABS: INTERNATIONAL NORM RATIO 1.1 (0.9-1.1); Prothrombin Time 12.2 SEC (10.9-12.4)
[2025-05-05 16:28] LABS: Resp Syncy Virus RNA Qual PCR NEGATIVE (Negative); SARS COV2 PCR INHOUSE NEGATIVE (Negative)
--- OUTSIDE RECORDS SUMMARY | 2025-05-05 19:59 | XMS_ITS | Encounter Summary ---
Author Organization [facility] Address [address] [place] [address] Care Team Providers [employer] Person Name Role Phone Unavailable Primary Care Provider Unavailabl e Encounter Details Date Type Department Care Team (Late st Contact Info) Description 08/30/2024 Lab Requisition [facility] - Main Lab [address] [facility] [place] [address] Marlo Pizarro PA [address] [place] [id number] Other microscopic hematuria Social History Tobacco Use [...] high-grade urothelial carcinoma. 09/14/2024 3:26 PM EST [facility] Clinical Information [id number] Cytology w/reflex UroVysion. 09/14/2024 3:26 PM EST [facility] Gross Description A. Urine, Voided, : [id number] RECD 1 TP SLIDE 09/14/2024 3:26 PM EST [facility] Disclaimer Technical pathology services provided by [facility] at [address], [place] [address] (CLIA #[id number] molly Morrison MD, Change Control Manager) Unless otherwise specified, all tissue is 10% NB formalin fixed and paraffin embedded. 09/14/2024 3:26 PM EST [facility] Tissue Urine specimen from urethra / Unknown 08/20/2024 08/30/2024 11:06 AM EST us [facility] PATHOLOGY ORDERAB LES Final Result [facility] [address] [place] [address], documented in this encounter Visit Diagnoses Diagnosis Other microscopic hematuria documented in this encounter
[2025-05-05 20:07] VITALS: BP 155/94; PULSE 56; RESP 16; TEMP 36.7; O2SAT 99
[2025-05-05 20:42] LABS: Troponin-I High Sensitivity 2.9 ng/L (<3.5-35.0)
[2025-05-05 22:12] VITALS: BP 155/94; PULSE 56; RESP 16; TEMP 36.7; O2SAT 99
== END 2025-05-05 22:12 | disposition home or self-care (01) ==
PROVIDERS: Physician Assistant Medical; Emergency Provider Emergency Medicine; PCP Family Medicine
DX: R07.89 Other chest pain (principal); E86.0 Dehydration; R06.02 Shortness of breath; Z79.899 Other long term (current) drug therapy; Z03.818 Encounter for observation for suspected exposure to other biological agents ruled out
CPT/HCPCS: 36415; 71046; 80053; 83735; 83880; 84484; 85025; 85610; 87637; 93005; 99283; 99284

== ENCOUNTER → 2025-05-05 15:27 | Outpatient (BNV) | payer MEDICAID, SELFPAY | PROVIDERS: Emergency Provider Emergency Medicine; PCP Family Medicine; Visit Provider Internal Medicine Cardiovascular Disease | DX: R07.9 Chest pain, unspecified (principal) | CPT/HCPCS: 93010 ==

== ENCOUNTER → 2025-05-05 15:32 | Outpatient (BNV) | payer MEDICAID, SELFPAY | PROVIDERS: PCP Family Medicine; Visit Provider Radiology Diagnostic Radiology | DX: R07.9 Chest pain, unspecified (principal) | CPT/HCPCS: 71046 ==

== ENCOUNTER 2025-05-30 09:11 | Outpatient (AMB) | payer MEDICAID, SELFPAY ==
[2025-05-30 09:24] VITALS: BP 120/70; PULSE 62; O2SAT 96; BMI 41.5
--- NOTE | 2025-05-30 09:24 | MHC.OFFVIS ---
Vital Signs 05/30/25 09:24 Height 5 ft 9 in Weight 281 lb 1.43 oz BMI 41.5 BP 120/70 Blood Pressure Location Lt brachial Position Sitting Pulse 62 Pulse Source Pulse Oximeter Pulse Oximetry (%) 96 Oxygen Delivery Method Room Air Intake Visit Reasons: asthma Materials Buyer Required: No Allergies No Known Allergies (NO KNOWN ALLERGIES) Allergy (Unknown, Verified 05/30/25 09:26) unknown HPI Comments Details: The patient is a 59 y/o man with asthma who apparently was in his usual state health until back in 2019 when he had severe COVID. Was briefly hospitalized. Since then he has had issues with breathing and also cough. The patient also suffers from sleep apnea and does use a CPAP. The last few months he has had a hard time with breathing. Back in November he had worsening cough and shortness of breath. The patient did have a chest x-ray which we personally reviewed without any acute disease. He also had a CT scan of the abdomen back in 04/14/2023 with lung windows at least about a 4th of a lung could be visualized. He did have some minimal degree of atelectasis at the bases and also some scarring. Likely the results of the COVID. The patient does feel better. He does have an Advair inhaler and also Spiriva HandiHaler. He does use it regularly although I do not see them on the medication this. He also has a Ventolin rescue inhaler. He seems to be doing better this time. Will try simplify his regimen by switching over to Trelegy. That way he has 1 maintenance inhaler and then his rescue therapy. In addition to that the patient does have underlying allergies. Will start him on Singulair. He will continue his respiratory therapy and will follow-up in 4-6 months. If the patient develops any worsening symptoms prior to that he will call. For the next visit he will also bring his CPAP so we can adjusted if necessary. 09/24/2024 the patient is here for a pulmonary follow-up visit. Overall he is doing okay. He did not tolerate the Trelegy because it caused him to be nauseous. Therefore he stopped it and he has been using the Spiriva. He also it up a known Flovent inhaler that he had and also has been using his rescue inhaler. We need to maximize his respiratory therapy with some for will switch his Flovent to Symbicort that he can use twice a day along with Spiriv 05/30/2025 the patient is here for pulmonary follow-up visit. Overall the patient has been doing a HandiHaler. In addition to that the patient has stopped using CPAP. I did explain to him that CPAP is important to treat his cardiovascular risk. I did encourage him to go back to using it. He is hopefully going to restarted and will bring into the next visit. Otherwise the patient is without any other complaints. Seems to be tolerating the singular well. Will follow-up in the fall 2024. 05/30/2025 the patient is here for pulmonary follow-up visit. Overall the patient has been doing well. The Incruse caused him to have nausea and he stopped using it. Therefore he has continued just on the Symbicort which appears to be effective for him. He did tolerate Spiriva in the past but does not appear to be covered. But he seems to be doing well just on the combination inhaler. Regarding his sleep she seems to be doing okay. His blood pressure is good today. His [place] score 7/24. This he has not been using the CPAP.. Will continue to monitor closely his cardiovascular risk factors and his daytime drowsiness. He is working on weight management. Will consider repeating the sleep study in the future. Will talk about that further when he comes back next year. In the meantime if he has any issues prior to the next visit he can always call for further recommendations. [facility] Medical History (Updated 05/30/25 @ 20:59 by Justino Villasenor MD) KANWAL (obstructive sleep apnea) HTN (hypertension) KANWAL on CPAP Asthma Tubular adenoma of colon GERD (gastroesophageal reflux disease) BPH (benign prostatic hyperplasia) Low back pain Surgical History Previous back surgery History of colonoscopy History of esophagogastroduodenoscopy (EGD) History of inguinal hernia repair, bilateral History of hemorrhoidectomy History of carpal tunnel release of both wrists History of nasal surgery Family History Family/Other No pertinent past medical history Social History Alcohol intake: current Alcohol intake frequency: does not drink Patient Tobacco Use Status: Never used Tobacco Review of Systems Const Denies fatigue, Denies fever(s), Denies night sweats, Denies poor appetite and Denies weight loss ENT Reports Normal hearing present Card Reports no additional complaints and Reports dyspnea on exertion Resp Reports cough and Reports dyspnea on exertion GI Details: Denies abdominal pain Skin/Breast Denies rash Neuro Reports Normal hearing present and Denies Abnormal speech present Endo Denies fatigue Physical Exam Vital Signs: Last Vital Signs Pulse 62 05/30/25 09:24 BP 120/70 05/30/25 09:24 Pulse Ox 96 05/30/25 09:24 Oxygen Delivery Method Room Air 05/30/25 09:24 BMI result Body Mass Index 41.5 HEENT Head: Yes normocephalic and Yes atraumatic Neck Neck: Yes normal visual inspection and Yes no lymphadenopathy Chest Other: gynecomastia Chest palpation & inspection: normal inspection of the chest Resp Effort & Inspection: normal respiratory effort and able to speak in complete sentences Auscultation: no wheezes and diminished lung sounds Cardio Rate: regular rate Rhythm: regular rhythm GI Inspection: No distended Palpation (GI): Soft to palpation Skin General skin exam: no rashes or lesions noted Neuro Cranial nerves: Yes Normal hearing present Speech: No Abnormal speech present Extrem General: No clubbing, No cyanosis and No edema Psych Appearance: grossly normal Assessment & Plan Assessment & Plan (1) Asthma: Code(s): J45.909 - Unspecified asthma, uncomplicated Category: Medical Qualifiers: Asthma complication type: uncomplicated Asthma persistence: persistent Asthma severity: moderate Qualified Code(s): J45.40 - Moderate persistent asthma, uncomplicated (2) KANWAL (obstructive sleep apnea): Comment: Positional therapy Code(s): G47.33 - Obstructive sleep apnea (adult) (pediatric) Category: Medical Plan stopped Spiriva handihaler continue Symbicort conitnue singulair qhs ASHELY as needed conisder repeating PSG in the future F/U 8-12 months Medications: Refilled albuterol sulfate 90 mcg/actuation (Ventolin HFA) 2 puffs inhalation QID PRN 18 grams 11RF shortness of breath or wheezing 30 days budesonide-formoterol 160-4.5 mcg/actuation (Symbicort) 2 puffs inhalation BID 10.2 grams 11RF 30 days J44.89 - Other specified chronic obstructive pulmonary disease Coding Level of Care Code Est Pt Level 4 (35485) Diagnoses Moderate persistent asthma without complication J45.40 Asthma complication type: uncomplicated Asthma persistence: persistent Asthma severity: moderate KANWAL (obstructive sleep apnea) G47.33 Time Spent (min) 16
--- OUTSIDE RECORDS SUMMARY | 2025-05-30 09:53 | XMS_ITS | Clinical Summary ---
Author Organization [employer] Address [address] [facility] [address] [place] [address] Care Team Providers Care Cmm Technician Name Role Phone Kristen Cruz MD Primary Care Provider Sotero Garcias PharmD Unavailable [phone] Mohsen Brenner RN Unavailable [phone] Niharika Soliz Unavailable Allergies Active Allergy Reactions Criticality Noted Date Comments Pollen Extract 07/11/2023 Other reaction(s): grass, runny nose and watery eyes Medications ARIPiprazole (Abilify) 10 MG tablet Take 10 mg by mouth in the morning. 10/24/19 23 Active escitalopram (Lexapro) 10 MG tablet Take 10 mg by mouth in the morning. 10/13/19 23 Active pantoprazole (ProtoNix) 40 MG EC tablet Take 40 mg by mouth 2 times daily. 05/25/20 22 Active tamsulosin (Flomax) 0.4 MG 24 hr capsule Take 0.4 mg by mouth at bedtime. 09/13/20 22 Active trospium (Sanctura) 20 MG tablet Take 20 mg by mouth at bedtime. 10/17/19 23 Active zolpidem (Ambien) 10 MG tablet TAKE 1 TABLET BY MOUTH EVERY DAY AT BEDTIME FOR INSOMNIA. 10/13/19 23 Active loratadine (Claritin) 10 MG tablet Take 1 tablet (10 mg) by mouth in the morning. 90 tablet 1 03/04/20 23 Active EPINEPHrine (EpiPen 2-Momo) 0.3 MG/0.3ML injection syringe inject 0.3 milliliter by intramuscular route once as needed for anaphylaxis Active Blood Pressure Monitoring (Blood Pressure Kit) kitIndications:Es sential hypertension Use as directed to check blood pressure daily 1 kit 07/11/20 23 Active fluticasone (Flonase) 50 MCG/ACT nasal spray Administer 1-2 sprays into each nostril in the morning. Shake gently. Before first use, prime pump. After use, clean tip and replace cap. 16 g 2 08/09/20 23 Active albuterol 108 (90 Base) MCG/ACT inhalerIndication s:Moderate persistent asthma without complication INHALE 2 PUFFS BY MOUTH EVERY 6 HOURS NEEDED 18 g 11/18/19 24 Active albuterol (2.5 MG/3ML) 0.083% nebulizer solution inhale 3 milliliter by nebulization route every 4 hours as needed for asthma symptoms, Maximum 4 treatments per day 75 mL 2 11/18/19 24 Active ipratropium (Atrovent) 0.06 % nasal spray Administer 2 sprays into each nostril 2 times daily. 15 mL 1 12/12/19 24 Active montelukast (Singulair) 10 MG tabletIndications :Allergic rhinitis, unspecified seasonality, unspecified trigger Take 1 tablet (10 mg) by mouth at bedtime. 90 tablet 3 03/13/20 24 Active atorvastatin (Lipitor) 10 MG tablet Take 1 tablet (10 mg) by mouth Once per day. 90 tablet 3 03/14/20 24 Active famotidine (Pepcid) 20 MG tabletIndications :Dyspepsia Take 1 tablet (20 mg) by mouth 2 times daily. 60 tablet 11 08/13/20 24 025 Active Neomycin-Polymyxi n-HC 1 % solution Administer 3 drops into affected ear(s) 4 times daily. 10 mL 09/25/20 24 Active triamcinolone (Kenalog) 0.1 % cream Apply topically if needed in the morning and at bedtime (pain and swelling). 30 g 3 09/25/20 24 Active Symbicort 160-4.5 MCG/ACT inhaler Inhale 2 puffs 2 times daily. 11/22/19 25 Active Incruse Ellipta 62.5 MCG/ACT aerosol powder inhale 1 puff by mouth daily 08/05/20 24 Active traMADol (Ultram) 50 MG tabletIndications :Chronic low back pain, unspecified back pain laterality, unspecified whether sciatica present,Lumbar radiculopathy Take 1 tablet (50 mg) by mouth if needed in the morning and at bedtime for severe pain. 15 tablet 12/26/19 25 Active cholecalciferol (Vitamin D-3) 25 MCG (1000 UT) tablet Take 1 tablet (25 mcg) by mouth Once per day. 90 tablet 3 12/28/19 25 Active lisinopril 40 MG tablet TAKE 1 TABLET(40 MG) BY MOUTH DAILY 90 tablet 3 03/13/20 25 Active lidocaine (Lidoderm) 5 % patch APPLY 1 PATCH TOPICALLY TO THE SKIN EVERY DAY. MAY WEAR UP TO 12 HOURS 30 patch 1 03/15/20 25 Active Ketotifen Fumarate 0.035 % solution Administer 1 drop into both eyes 2 times daily. Instill 1 drop to each eye twice daily 10 mL 1 03/21/20 25 Active cyclobenzaprine (Flexeril) 5 MG tablet Take 5 mg by mouth. 03/24/20 25 Active Tirzepatide-Weigh t Management 2.5 MG/0.5ML solution auto-injector Inject 0.5 mL (2.5 mg) under the skin 1 (one) time per week. 2 mL 11 04/30/20 25 Active Active Problems Problem Noted Date Diagnosed Date Rash 09/25/2024 Assessment & Plan (10/05/2024 12:45 PM EST): -pt likely has eczema or lichen planus -avoid scratching -will prescribe topical steroid cream Dyslipidemia 03/14/2024 Assessment & Plan (04/05/2025 5:53 AM EDT): - last lipid profile in December 2024 - 10-year ASCVD risk suggests statin-benefit group, moderate intensity - continue atorvastatin 10 mg at bedtime Assessment & Plan (12/25/2024 1:27 PM EDT): [...] KANWAL on CPAP 11/23/2022 Assessment & Plan (04/05/2025 6:07 AM EDT): -sleep study 2016 -followed by sleep study clinic, last seen on 05/18/21 -currently seeing Dr. Villasenor, boilermaker helper -pt currently on auto CPAP from 6-16 cmH20 pressure -symptoms are improving with weight loss -pt encouraged to use CPAP machine Assessment & Plan (12/29/2024 11:55 AM EDT): -sleep study 2016 -followed by sleep study clinic, last seen on 05/18/21 -currently seeing Dr. Villasenor, boilermaker helper -pt currently on auto CPAP from 6-16 cmH20 pressure -symptoms are improving with weight loss -pt encouraged to use CPAP machine Assessment & Plan (10/05/2024 12:43 PM EST): -sleep study 2016 -followed by sleep study clinic, last seen on 05/18/21 -currently seeing Dr. Villasenor boilermaker helper -pt currently on auto CPAP from 6-16 [...] 5:04 PM EDT): continue CPAP -sleep study 2016 -followed by sleep study clinic, last een on 05/18/21 -Last appt on December 15, 2020 -pt currently on auto CPAP from 6-16 cmH20 pressure -pt was advised to improve adherence Assessment & Plan (08/19/2023 11:38 AM EST): continue CPAP -sleep study 2016 [...] lumbosacral intervertebral disc 07/22/2015 Assessment & Plan (04/05/2025 6:06 AM EDT): -s/p Left L4-L5 microdiskectomy by Dr. Torres on 03/26/19 -pt reports improvement of pain with tramadol -pt reports he does not need to take tramadol everyday; pt was prescribed 20 tablets per month -pt signed agreement for control of substance use for tramadol in the past, but he stopped using tramadol; if he continues to require tramadol regularly, then will refer to HANDLE ROUNDER OPERATOR team -Avoid NSAIDs Assessment & Plan (03/13/2024 8:59 AM EDT): [...] taking -Avoid NSAIDs Impaired fasting glucose 07/22/2015 Assessment & Plan (04/05/2025 5:56 AM EDT): - Most recent A1c 5.5% - Continue working on lifestyle modification - Previously had a good result with GLP-1 RA, we restarted GLP-1 RA Sacroiliac joint pain 07/22/2015 Spondylosis 07/22/2015 HTN (hypertension) 07/03/2015 Assessment & Plan (04/05/2025 5:53 AM EDT): - goal BP< 130/80 per ACC/AHA guideline - BP at [...] months or sooner prn Assessment & Plan (12/25/2024 1:22 PM EDT): [...] adenoma of colon 12/24/2014 Assessment & Plan (04/05/2025 5:56 AM EDT): - tubular adenoma in 2017 and 2021 - most recent colonoscopy in March 2024 by [facility] GI Dr. Boo. Hyperplastic polyp. Recommended to repeat colonoscopy in 5 years. Assessment & Plan (06/20/2024 12:08 PM EDT): - tubular adenoma in 2017 and 2021 - most recent colonoscopy in March 2024 by [facility] Dr. Boo. Hyperplastic polyp. Recommended to repeat colonoscopy in 5 years. Assessment & Plan (03/14/2024 11:31 AM EDT): - last colonoscopy in 2017 - GI: [facility], last seen in Sep 2021 - Upcoming appointment for colonoscopy and EGD Assessment & Plan (08/19/2023 11:50 AM EST): - last colonoscopy in 2017 - GI: [facility], last seen in Sep 2021 - He was supposed to have a colonoscopy, but did not follow up - refer back Chronic low back pain 02/09/2013 Assessment & Plan (04/05/2025 6:04 AM EDT): - s/p Left L4-L5 microdiskectomy by Dr. Torres on 03/26/19 -Previously following with [facility] for back pain. Diagnosis lumbar spondylosis and radiculopathy. Patient has received lumbar epidural steroid injection and transforaminal epidural steroid injection. - acute exacerbation in November 2023 and treated with tramadol - stable / back to baseline at this time - continue APAP; minimize NSAIDs use due to his GI symptoms - judicious use of tramadol prn. He does not take every day Assessment & Plan (12/25/2024 1:26 PM EDT): [...] short course of tramadol - will need HANDLE ROUNDER OPERATOR agreement if pt needs another tramadol script in the future GERD (gastroesophageal reflux disease) 3 Assessment & Plan (04/05/2025 5:56 AM EDT): - continue pantoprazole Assessment & Plan (03/14/2024 11:31 AM EDT): - continue pantoprazole Asthma 11/07/2012 Assessment & Plan (04/05/2025 6:07 AM EDT): -following with Dr. Villasenor [facility] Trailer Steerer last seen on 09/24/24. -last asthma flare up in 06/2024. Treated with Prednisone and no ABx -continue Symbicort, as maintenance. Discussed about mouth care after each use. Consider MART -continue Tiotropium 18 mcg inhaler once daily. -continue Singulair -continue Albuterol, as rescue. Consider MART -treatment history: patient tried Trelegy but was unable to tolerate due to nausea; Flovent was switched to Symbicort Assessment & Plan (09/25/2024 1:18 PM EST): -following up with Dr. Villasenor [facility] Trailer Steerer last seen on 09/24/24. -last asthma flare [...] to Breo and Incruse. Will confirm with boilermaker helper. Assessment & Plan (03/13/2024 11:47 AM EDT): [...] to Breo and Incruse. Will confirm with boilermaker helper. Assessment & Plan (12/12/2023 5:08 PM EDT): [...] Benign prostatic hyperplasia 11/07/2012 Assessment & Plan (04/05/2025 5:58 AM EDT): -Urologist: [facility], last seen in Jul 2024 - TRUSP biopsy on 07/07/21 for elevated PSA; result was benign. - continue trospium as prescribed Assessment & Plan (10/05/2024 12:44 PM EST): [...] Urologist. Allergic rhinitis 08/22/2012 Assessment & Plan (04/05/2025 5:54 AM EDT): -followed by ENT and pulmonology -continue loratadine -continue ipratropium nasal -continue fluticasone nasal - continue montelukast Assessment & Plan (03/14/2024 11:35 AM EDT): -followed by ENT and pulmonology -continue loratadine -continue ipratropium nasal -continue fluticasone nasal - continue montelukast Assessment & Plan (08/19/2023 11:54 AM EST): -followed by ENT -continue loratadine -continue ipratropium nasal -continue fluticasone nasal Assessment & Plan (11/23/2022 11:54 AM EST): -followed by ENT -continue loratadine -continue ipratropium nasal -continue Flonase Obesity 05/24/2012 Assessment & Plan (04/05/2025 6:15 AM EDT): -started semaglutide since January 2024 - developed nausea, vomiting and constipation with higher dose. - agreed to switch to tirzepatide. PA request was denied twice. Meanwhile, he regained weigh and BP is high - due to uncontrolled hypertension, phentermine is contraindicated. - will resume semaglutide at lower dose, 0.25 mg weekly, since he had GI side effect with higher dose - continue working on lifestyle modifications Assessment & Plan (12/29/2024 11:51 AM EDT): -started semaglutide since January 2024 - developed nausea, vomiting and constipation with higher dose. - agreed to switch to tirzepatide. PA request was denied twice. Meanwhile, he regained weigh and BP is high - due to uncontrolled hypertension, phentermine is contraindicated. - check the status of tirzepatide - continue working on lifestyle modifications Assessment [...] Vitamin D deficiency 05/24/2012 Assessment & Plan (03/23/2025 8:59 AM EDT): Continue vitamin D supplementation Assessment & Plan (03/14/2024 11:33 AM EDT): Continue vitamin D supplementation Resolved Problems Problem Noted Date Diagnosed Date Resolved Date Right ear pain 09/25/2024 04/05/2025 Assessment & Plan (09/25/2024 1:08 PM EST): - likely irritation - avoid using q-tips - will prescribe antibiotic drops with steroid Cough 11/19/2023 03/14/2024 Assessment & Plan (12/12/2023 [...] Encounters Date Type Department Care Team Description 05/29/2025 Patient Outreach [address] [address] Kristen Cruz MD Care Management (C3CM- f/u call) 05/16/2025 Orders Only [address] [address] Kristen Cruz MD 05/16/2025 Patient Outreach [address] [address] Kristen Cruz MD Care Management (C3CM- f/u call) 05/14/[address] [address] Kathryn Fry, TRAFFIC CONTROL FLAGGER Follow-up 05/06/2025 Patient Outreach [address] [address] Kristen Cruz MD Care Management (C3CM- f/u call) 05/05/2025 Orders Only GENERIC EXTERNAL DATA DEPARTMENT Provider, Generic External Data 05/03/2025 Patient Outreach [address] [address] Kristen Cruz MD Care Management (C3CM- f/u call lv) 04/30/2025 Orders Only [address] [address] Kristen Cruz MD 04/22/2025 Patient Outreach [address] [address] Kristen Cruz MD Care Management (C3- 1st f/u call) 04/22/2025 Patient Outreach [address] [place] [address] Kristen Cruz MD Error (VOID this visit) 04/15/[address] [address] Kristen Cruz MD Prior Authorization ( PA: Carlos Alberto) 04/09/2025 Plan of Care Documentation [address] [address] 04/09/2025 Patient Outreach [address] [address] Kristen Cruz MD Care Management (C3- initial assessment/ enrollment) 04/08/2025 Patient Outreach [address] [address] Kristen Cruz MD Care Coordination (C3 -[facility] telephone call outreach) 04/02/[address] [address] Kristen Cruz MD Nurse Triage 03/28/2025 Patient Outreach [address] [address] Kristen Cruz MD 03/25/2025 Patient Outreach [address] [address] Kristen Cruz MD 03/25/2025 Patient Outreach [address] [address] Kristen Cruz MD Care Management (C3- chart review) 03/25/2025 Patient Outreach [address] [address] Kristen Cruz MD 03/21/2025 10:30 AM EDT Office Visit [address] [address] Kristen Cruz MD Hypertension, unspecified type (Primary Dx); Dyslipidemia; Class 3 severe obesity due to excess calories with serious comorbidity and body mass index (BMI) of 40.0 to 44.9 in adult; Vitamin D deficiency; Allergic rhinitis, unspecified seasonality, unspecified trigger; Impaired fasting glucose; Tubular adenoma of colon; Gastroesophageal reflux disease, unspecified whether esophagitis present; Benign prostatic hyperplasia, unspecified whether lower urinary tract symptoms present; Sacroiliac joint pain; Plantar fasciitis; Chronic low back pain, unspecified back pain laterality, unspecified whether sciatica present; Spondylosis; Lumbar radiculopathy; Degeneration of intervertebral disc of lumbosacral region with discogenic back pain and lower extremity pain; Carpal tunnel syndrome, unspecified laterality; Moderate persistent asthma without complication; KANWAL on CPAP; Acute conjunctivitis of both eyes, unspecified acute conjunctivitis type 03/21/2025 Travel 03/18/2025 Telephone [facility] [address] [place] [address] Anette Brenner MA chart prep 03/13/2025 Refill [facility] [address] [place], [place] [phone] Kristen Cruz MD 03/13/2025 Patient Outreach [facility] [address] [place], [place] [phone] Kristen Cruz MD Pre-visit Planning (SDOH was already completed) 03/13/2025 Refill [facility] [address] [place] [address] Kristen Cruz MD from Last 3 Months Immunizations Immunization Administration Dates Next Due Influenza injectable quadriv [...] Answer Date Recorded Patient Health Questionnaire-9 Score 4 04/09/2025 Patient Health Questionnaire-9 Score 4 04/09/2025 Last PHQ-9: Questionnaire Data Not on file 0 04/09/2025 Housing Stability Answer Date Recorded What is your housing situation today? I have rebeca harvey 12/25/[address] you li ve. Do you have problems with any of the following? None of the above 12/25/2024 Food Insecurity Answer Date Recorded Within the past 12 months, y ou worried that your food would run out before you got money to buy more: Sometimes True 2024 Within the past 12 months,th e food you bought just didn't last and you didn't have enough money to get more: Sometimes True 03/25/2025 Transportation Answer Date Recorded In the past [...] Answer Date Recorded Patient Health Questionnaire-2 Score 2 04/09/2025 Internet Access Answer Date Recorded Internet Access Q1 Yes 03/25/2025 Internet Access Q2 I do not want or need it 02/26 Sex and Gender Information Value Date Recorded Sex Assigned at Male 07/26/2022 10:16 AM EDT Legal Sex Male 10:16 AM EDT Gender Identity Male 07/26/2022 10:16 AM EDT Sexual Orientation Straight 07/26/2022 10 :16 AM EDT Last Filed Vital Signs Vital Sign Reading Time Taken Comments Blood Pressure 130/76 03/21/2025 10:50 AM EDT Pulse 55 03/21/2025 10:50 AM EDT Temperature 36.1 C (96.9 F) 03/21/2025 10:50 AM EDT Respiratory Rate 12 03/21/2025 10:50 AM EDT Oxygen Saturation 96% 03/21/2025 10:50 AM EDT Inhaled Oxygen Concentration - - Weight 129 kg (284 lb 6.4 oz) 03/21/2025 10:50 A M EDT Height 172.2 cm (5' 7.81 ) 03/21/2025 10:50 AM E DT Body Mass Index 43.48 03/21/2025 10:50 AM EDT Plan of Treatment Health Maintenance Due Date Last Done Comments CT Colonography 1965 FIT DNA/Cologuard 1965 FIT 1965 FOBT 1965 Sigmoidoscopy 1965 Influenza Vaccine (#1) 2025 , 06/22/2023, 06/21/2022, Additional history exists Alcohol/Substance Use Screening 09/25/2025 09/25/2024 Disability Screening 12/25/2025 12/25/2024 SDOH Screening 03/25/2026 03/25/2025 Tobacco Screening 04/05/2026 04/05/2025 Depression Screening 04/09/2026 04/09/2025, 04/09/20 25 Colonoscopy 04/13/2029 04/13/2024, 09/22/2021 Colorectal Cancer Screening 04/13/2029 Lipid Panel 12/25/2029 12/25/2024, 09/26, 11/23/2022, Additional history exists DTaP/Tdap/Td Vaccines (4 - Td or Tdap) 06/22/2034 06/22/2024, 06/21/2022, 01/05/2012, Additional history exists HIV Screening Completed 11/26/2019 Zoster Vaccines Completed 09/08/2021, 07/01/2021 Hepatitis C Screening Completed 11/23/2022, 020 Pneumococcal Vaccine: 50+ Years Completed 12/12/2023, 02/13/2014 COVID-19 Vaccine Completed 06/20/2024, 05/2023, 09/22/2022, Additional history exists RSV Patients and Patients [...] age to complete this topic Meningococcal B Vaccine Aged Out No l onger eligible based on patient's age to complete [...] Author Blood Pressure < 140/90 Blood Pressure 130/76( 025 10:50 AM EDT) Sotero Sanford, Maria E Procedures Procedure Name Priority Date/Time Associated Diagnosis Comments HIGH SENSITIVITY TROPONIN I Routine 05/05/2025 8:13 PM EDT XR CHEST 2 VIEWS Routine 05/05/2025 4:38 PM EDT PROTHROMBIN TIME-INR Routine 05/05/2025 3:45 PM EDT HIGH SENSITIVITY TROPONIN I Routine 05/05/2025 3:45 PM EDT B TYPE NATRIURETIC PEPTIDE (BNP) Routine 05/05/2025 3:45 PM EDT MAGNESIUM Routine 05/05/2025 3:45 PM EDT COMPREHENSIVE METABOLIC PANEL Routine 05/05/2025 3:45 PM EDT CBC WITH AUTO DIFFERENTIAL Routine 05/05/2025 3:45 PM EDT SARS COV2/INFLUENZA A/B AND RSV RNA QL NAAT Routine 05/05/2025 3:45 PM EDT LIPID PANEL WITH REFLEX TO DIRECT LDL Routine 12/25/2024 1:23 PM EDT Dyslipidemia HM COLONOSCOPY Routine 04/13/2024 HEPATITIS C AB W/REFL TO HCV RNA, QN, PCR Routine 11/23/2022 11:46 AM EST ZZZ HISTORICAL HIV AB/AG Routine 11/26/2019 7:15 AM EST from Last 3 Months or Most Recently Relevant to Health Maintenance Results * High Sensitivity Troponin I (05/05/2025 8:13 PM EDT) Only the most recent of2 resultswithin the time period is included. TROPONIN I HIGH SENSITIVITY 2.9 <3.5 - 35.0 ng/L [facility] Comment:The Santacruz high sens itivity Troponin-I results should beused in conjunction with other diagnostic information suchas ECG, clinical observations and information, and patientsymptoms to aid in the diagnosis of CO. 05/05/2025 8:13 PM EDT 05/05/2025 8:17 PM EDT us Generic External Data Provider LAB BLOOD ORDERAB LES Final Result [facility] [address] [place] [phone] * XR Chest 2 Views (05/05/2025 4:38 PM EDT) Anatomical Region Laterality Modality Chest Radiographic Lucy ging 05/05/2025 4:38 PM EDT Narrative 05/05/2025 4:39 PM EDT [address] [address] XRay Report Signed Patient: Justino Bailey R#: [id number] : 1965 Acct:[id number] Age/Sex: 59 / M ADM Date: 05/05/25 Loc: HO.ED Attending Dr: Ordering Physician: Lindy Niño Date of Service: 05/05/25 Procedure(s): XR chest 2V Accession Number(s): [id number] cc: Lindy Niño; Kristen Cruz MD CLINICAL HISTORY: chest pain 2 view chest x-ray Comparison: CR/CO/SR - XR CHEST 2 VIEWS - 12/12/23 11:09 EDT Findings: The lungs are clear. Normal size heart. No acute fracture. IMPRESSION: 1. No acute findings. This document has been electronically signed by: Viki Hawkins MD on 05/05/2025 16:38:50 Dictated By: Viki Hawkins MD Signed By: <Electronically signed by Viki Hawkins MD in OV> 05/05/25 1639 DD/ 1638 TD/TT: 05/05/25 163 Mannequin Coloring Artist: Procedure Note Donguidointerpreter, Image - 05/05/[address] [address] XRay Report Signed Patient: Justino Bailey AM R#: [id number] : 1965Acct:[id number] Age/Sex: 59 / MADM Date: 05/05/25 Loc: .ED Attending Dr: Ordering Physician: Lindy Niño Date of Service: 05/05/25 Procedure(s): XR chest 2V Accession Number(s): [id number] cc: Lindy Niño; Kristen Cruz MD CLINICAL HISTORY: chest pain 2 view chest x-ray Comparison: CR/CO/SR - XR CHEST 2 VIEWS - 12/12/23 11:09 EDT Findings: The lungs are clear. Normal size heart. No acute fracture. IMPRESSION: 1. No acute findings. This document has been electronically signed by: Viki Hawkins MD on 05/05/2025 16:38:50 Dictated By: Viki Hawkins MD Signed By: <Electronically signed by Viki Hawkins MD in OV> 05/05/25 1639 DD/ 1638 TD/TT: 05/05/25 1638 Mannequin Coloring Artist: [facility] External Provider IMG XR PROCEDURES Edited Result - Final * SARS-CoV-2 RNA, Influenza A/B, and RSV RNA, Ql NAAT (05/05/2025 3:45 PM EDT) [facility] Influenza A PCR NEGATIVE Negative [facility] Influenza B PCR NEGATIVE Negative [facility] Resp Syncy Virus RNA Qual PCR NEGATIVE Negative [facility] SARS COV2 PCR NEGATIVE Negative [facility] Comment:All test results mus t be correlated with clinical findings.Negative results do not preclude SARS-CoV2, influenza Avirus, influenza B virus and/or RSV infectionand should not be used as the sole basis for treatment orother patient management decisions. Negative results must becombined with clinical observations, patient history, andepidemiological information.This test has not been evaluated for monitoring treatment ofinfection.This test has been authorized by the FDA under an EmergencyUse Authorization (EUA) for use by authorized laboratories.Testing performed on the Scan•Jour GeneXpert utilizingreal-time RT-PCR.All SARS CoV2 and positive influenza A/B results arereported to [facility]. 05/05/2025 3:45 PM EDT 05/05/2025 3:49 PM EDT Generic External Data Provider LAB MICROBIOLOGY - GENERAL ORDERABLES Final Result [facility] [address] [place] [phone] * (ABNORMAL) CBC auto differential (05/05/2025 3:45 PM EDT) Pathologist [facility] White Blood Count 10.4 4.8 - 10.8 X10*3/uL [facility] Red Blood Count 5.70 4.60 - 5.80 X10*6/uL [facility] Hemoglobin 16.9 14.0 - 18.0 g/dl [facility] Hematocrit 49.6 42.0 - 52.0 % [facility] Mean Corpuscular Volume 87.0 80.0 - 98.0 fL [facility] Mean Corpuscular Hemoglobin 29.6 27.0 - 33.0 pg [facility] Mean Corpuscular HGB Conc 34.1 31.0 - 36.0 g/dl [facility] Red Cell Distribution Width 13.3 11.0 - 16.0 % [facility] Platelet Count 268 160 - 400 X10*3/uL [facility] Mean Platelet Volume 10.5 9.4 - 12.4 fL [facility] Neutrophils Percent Auto 66.2 45 - 73 % [facility] Imm Gran Pct Auto 0.6(H) 0.0 - 0.4 % [facility] Lymphocytes Percent Auto 24.1 20 - 40 % [facility] Monocytes Percent Auto 7.8 2 - 11 % [facility] Eosinophils Percent Auto 0.9 0 - 4 % [facility] Basophils Percent Auto 0.4 0 - 2 % [facility] NRBC Pct Auto 0.0 0.0 - 0.2 /100WBC [facility] Neutrophils Absolute Auto 6.9 2.0 - 8.3 x10*3/uL [facility] Imm Gran Abs Auto 0.06(H) 0.00 - 0.03 X10*3/uL [facility] Lymphocytes Absolute Auto 2.5 1.2 - 4.9 X10*3/uL [facility] Monocytes Absolute Auto 0.8 0.1 - 1.2 X10*3/uL [facility] Eosinophils Absolute Auto 0.1 0.0 - 0.4 X10*3/uL [facility] Basophils Absolute Auto 0.0 0.0 - 0.2 X10*3/uL [facility] NRBC Abs Auto 0.000 0.0 - 0.012 X10*3/uL [facility] 05/05/2025 3:45 PM EDT 05/05/2025 3:49 PM EDT us Generic External Data Provider LAB BLOOD ORDERAB LES Final Result Performing Organization Address City/[facility]/ZIP Co de Phone Number [facility] [address] [place] [phone] * Prothrombin Time-INR (05/05/2025 3:45 PM EDT) Prothrombin Time 12.2 10.9 - 12.4 SEC [facility] INTERNATIONAL NORM RATIO 1.1 0.9 - 1.1 [facility] Comment:INTERNATIONAL NORMAL IZED RATIO (INR) REFERENCE RANGES Reference RangeFor patients not on anticoagulant therapy: 0.9 - 1.1INR ranges for oral anticoagulanttherapy:For prevention and treatment of venous thrombosis and pulmonary embolism: 2.0 - 3.0For acute myocardial infarction with aspirin therapy: 2.0 - 3.0For acute myocardial infarction without aspirin therapy: 3.0 - 4.0For patients with mechanical prosthetic heart valves: 2.5 - 3.5 05/05/2025 3:45 PM EDT 05/05/2025 3:49 PM EDT us Generic External Data Provider LAB BLOOD ORDERAB LES Final Result Performing Organization Address City/[facility]/ZIP Co de Phone Number [facility] [address] [place] [phone] * B Type Natriuretic Peptide (BNP) (05/05/2025 3:45 PM EDT) B Type Natriuretic Peptide <10 <100 pg/mL [facility] 05/05/2025 3:45 PM EDT 05/05/2025 3:49 PM EDT us Generic External Data Provider LAB BLOOD ORDERAB LES Final Result [facility] [address] [place] [address] [phone] * Magnesium (05/05/2025 3:45 PM EDT) Magnesium 2.3 1.6 - 2.6 mg/dL [facility] 05/05/2025 3:45 PM EDT 05/05/2025 3:49 PM EDT us Generic External Data Provider LAB BLOOD ORDERAB LES Final Result Performing Organization Address [facility] Co de Phone Number [facility] [address] [place] [address] [phone] * (ABNORMAL) Comprehensive Metabolic Panel (05/05/2025 3:45 PM EDT) Pathologist [facility] Sodium 138 135 - 145 mmol/L [facility] Potassium 4.0 3.3 - 5.1 mmol/L [facility] Chloride 109(H) 96 - 108 mmol/L [facility] Carbon Dioxide 20(L) 22 - 29 mmol/L [facility] Anion Gap 13 12 - 20 [facility] Urea Nitrogen (BUN) 21(H) 9 - 16 mg/dL [facility] Creatinine, Serum 1.14 0.5 - 1.4 mg/dL [facility] Creatinine Clr Calc Pharmacy 89.2 [facility] Comment:eGFR (calculated fro m the MDRD study equation) and eCrCl(calculated from the Cockcroft-Gault equation) are based ondifferent parameters and may not yield comparable results.If eCrCl result is absurd, please check patient'sheight/weight. Estimated Glomerular Filt Rate >60 [facility] Comment:Chronic Kidney Disea se: Estimated GFR < 60 mL/min/1.11l0Mpewve Kidney Disease: Estimated GFR < 15 mL/min/1.73m2 Glucose 114 60 - 115 mg/dL [facility] Calcium 9.4 8.4 - 10.2 mg/dL [facility] Bilirubin, Total 0.4 0.0 - 1.0 mg/dL [facility] Aspartate Amino Transferase 33 5 - 37 U/L [facility] Alanine Aminotransferase 46(H) 0 - 40 U/L [facility] Total Protein 8.3(H) 6.5 - 8.0 g/dL [facility] Albumin Level 4.5 3.5 - 5.0 g/dL [facility] Alkaline Phosphatase 114 39 - 117 U/L [facility] 05/05/2025 3:45 PM EDT 05/05/2025 3:49 PM EDT us Generic External Data Provider LAB BLOOD ORDERAB LES Final Result [facility] [address] [place] [phone] * Lipid Panel with Reflex to Direct LDL (12/25/2024 1:23 PM EDT) Triglycerides 88 <150 mg/dL [facility] Comment:Desirable Triglyceri de: less than 150 mg/dLBorderline High Triglyceride 150-199 mg/dLHigh Triglyceride: 200-499 mg/dLVery High Triglyceride: greater than or equal to 5OO mg/dL Cholesterol 151 <200 mg/dL [facility] Comment:Desirable Cholestero l: less than 200 mg/dLBorderline High Cholesterol: 200-239 mg/dLHigh Cholesterol: greater than 239 mg/dL LDL Cholesterol Calculated 92 <100 mg/dL [facility] Comment:Desirable LDL: less than 100 mg/dLNear Optimal/Above Optimal LDL: 110- 129 mg/dLBorderline High LDL: 130-159 mg/dLHigh LDL: 160-189 mg/dLVery High LDL: greater than or equal to 190 mg/dL HDL Cholesterol 42 >40 mg/dL [facility] Comment:Desirable HDL: great er than 40 mg/dL Note: This HDL assay may give artificially low results in patients with liver disease. Blood 12/25/2024 1:23 PM EDT 12/25/2024 4:07 PM EDT Kristen Cruz MD LAB BLOOD ORDERABLES Final Resul t Performing Organization Address City/[facility]/ZIP Co de Phone Number [facility] [address] [place] [address] [phone] * Hm Colonoscopy (04/13/2024) Pathologist [facility] Colonoscopy Normal Normal 04/13/2024 Historical Provider HEALTH MAINTENANCE Final Result * Hepatitis C Antibody with Reflex to HCV, RNA, Quantitative, Real-Time PCR (11/23/2022 11:46 AM EST) Pathologist [facility] Hepatitis C Antibody NON-REACT WOO NON-REACT WOO [place] [facility] Index 0.06 <1.00 [place] [facility] Comment: HCV antibody was non-reactive. There is no laboratory evidence of HCV infection. In most cases, no further action is required. However, if recent HCV exposure is suspected, a test for HCV RNA (test code 80712) is suggested. For additional information please refer to http://education.[employer]/faq/IRY01p6 (This link is being provided for informational/ educational purposes only.) 11/23/2022 11:4 6 AM EST 11/23/2022 11:47 AM EST Kristen Cruz MD LAB BLOOD ORDERABLES Final Resul t [facility] [address] [facility] [place] [address] [place] [facility] [address] [facility], ([address]) [place] [address] * HIV AB/AG (11/26/2019 7:15 AM EST) Pathologist [facility] HIV AG/AB NONREACTIVE [facility] Comment: HIV-1 p24 Ag and/or HIV-1/HIV-2 Ab not detected. A test result that is nonreactive does not exclude the possibility of exposure to or infection with HIV-1 and/or HIV-2. Nonreactive results in this assay for individuals with prior exposure to HIV-1 and/or HIV-2 may be due to antigen and antibody levels that are below the limit of detection of this assay. The [employer] HIV Ag/Ab Combo assay result and supplemental assay results should be interpreted in conjunction with the patient's clinical presentation, history and other laboratory results. If the results are inconsistent with clinical evidence, additional testing is suggested to confirm the result. 11/26/2019 7:15 AM EST us Kristen Cruz MD HISTORICAL/NON ORDERABLE LABS Fi nal Result [facility] Anywhere [address] from Last 3 Months or Most Recently Relevant to Health Maintenance Insurance [facility] Care Teams Cmm Technician Relationship Specialty Start Date End Date Kristen Cruz MD [address] [place] [address] PCP - General Family Medicine 09/26/18 Sotero Garcias, NaylaD [address] [place] [address] Pharmacist Internal Medicine 07/11/23 Mohsen Brenner, LIBRADO [address] [address] Registered Nurse Family Medicine 03/25/25 Niharika Soliz 03/25/25
--- OUTSIDE RECORDS SUMMARY | 2025-05-30 09:53 | XMS_ITS ---
Author Organization [employer] Address [address] [facility] 7t [place] [address] Care Team Providers Care Knotter Name Role Phone Kristen Cruz MD Primary Care Provider [phone] Sotero Garcias PharmD Unavailable [phone] Mohsen Brenner RN Unavailable [phone] Niharika Soliz Unavailable [facility] Status:Enrolled (Active) Start date:03/25/2025 Enrollment date:03/25/2025 Enrollment reason:ADT Feed Overview ED- Pt went to [facility] ED on 03/24/25. Please outreach for enrollment Case Team Name Relationship Phone Niharika Soliz(Responsible Staff) Continued Care and Services Coordination
--- OUTSIDE RECORDS SUMMARY | 2025-05-30 09:53 | XMS_ITS | Encounter Summary ---
Author Organization [facility] Address [address] [place] [address] Care Team Providers Care Plastic Molding Operator Name Role Phone Unavailable Primary Care Provider Unavailabl e Encounter Details Date Type Department Care Team (Late st Contact Info) Description 08/30/2024 Lab Requisition [facility] - Main Lab [address] [facility] [place] [address] Marlo Pizarro PA [address] [place] [phone] Other microscopic hematuria Social History Tobacco Use [...] high-grade urothelial carcinoma. 09/14/2024 3:26 PM EST [facility] Clinical Information [id number] Cytology w/reflex UroVysion. 09/14/2024 3:26 PM EST [facility] Gross Description A. Urine, Voided, : [id number] RECD 1 TP SLIDE 09/14/2024 3:26 PM EST [facility] Disclaimer Technical pathology services provided by [facility] at [address], [place] [address] (CLIA #[id number] molly Morrison MD, Microfilm Duplicating Unit Supervisor) Unless otherwise specified, all tissue is 10% NB formalin fixed and paraffin embedded. 09/14/2024 3:26 PM EST [facility] Tissue Urine specimen from urethra / Unknown 08/20/2024 08/30/2024 11:06 AM EST us [facility] G[facility]AL[facility] PATHOLOGY ORDERAB LES Final Result [facility] [address] [place] [address], documented in this encounter Visit Diagnoses Diagnosis Other microscopic hematuria documented in this encounter
--- OUTSIDE RECORDS SUMMARY | 2025-05-30 09:53 | XMS_ITS | Encounter Summary ---
Author Organization [employer] Address [address] [facility] 7t [place] [address] Care Team Providers Care Quality Systems Engineer Name Role Phone Kristen Cruz MD Primary Care Provider [phone] Sotero Garcias PharmD Unavailable [phone] Mohsen Brenner RN Unavailable [phone] Niharika Soliz Unavailable Encounter Details Date Type Department Care Team (Late st Contact Info) Description 12/27/2024 Orders Only [facility] [address] [place], [place] [phone] Kristen Cruz MD [address] [place], [place] [phone] Social History Tobacco Use Types Packs/Day Years [...] Blood Pressure 130/76( 025 10:50 AM EDT) No Sotero Garcias, PharmD documented as of this encounter Visit Diagnoses Not on filedocumented in this encounter Additional Health Concerns Assessment Noted Time PHQ-9 Depression Total Score: 0 06/20/20 24 9:02 AM EDT documented as of this encounter Care Teams Quality Systems Engineer Relationship Specialty Start Date End Date Kristen Cruz MD [address] [place] [address] PCP - General Family Medicine 09/26/18 Sotero Garcias, PharmD [address] [place] [address] Pharmacist Internal Medicine 07/11/23 Mohsen Brenner, LIBRADO [address] [place] [address] Registered Nurse Family Medicine 03/25/25 Niharika Soliz 03/25/25 documented as of this encounter
--- OUTSIDE RECORDS SUMMARY | 2025-05-30 09:53 | XMS_ITS | Encounter Summary ---
Author Organization [employer] Address 75 [facility] 7t [place] [address] Care Team Providers Care Chainstitch Seat Joiner Name Role Phone Kristen Cruz MD Primary Care Provider [phone] Sotero Garcias PharmD Unavailable [phone] Mohsen Brenner RN Unavailable Niharika Soliz Unavailable Encounter Details Date Type Department Care Team (Latest Contact Info) Description 03/01/2019 Abstract [facility] CONVERSIONS Dental, Provider, DDS Social History Tobacco [...] on filedocumented in this encounter Care Teams Chainstitch Seat Joiner Relationship Specialty Start Date End Date Kristen Cruz MD [address] [place], [place] [phone] PCP - General Family Medicine 09/26/18 Sotero Garcias, PharmD [address] [place], [place] [phone] Pharmacist Internal Medicine 07/11/23 Mohsen Brenner, RN [address] [place] [address] [place] [address] Registered Nurse Family Medicine 03/25/25 Niharika Soliz 03/25/25 documented as of this encounter
--- OUTSIDE RECORDS SUMMARY | 2025-05-30 09:53 | XMS_ITS | Clinical Summary ---
Author Organization [address] [facility] Address [address] [place] [address] Phone Care Team Providers Care Supervisor Electronic Testing Name Role Phone Unavailable Primary Care Provider [...] 2013 Zoster Vaccines (1 of 2) 2013 Depression Screening 09/26/2024 Cholesterol Screening (Lipid Panel) 10/21/2024 Colorectal Cancer Screening: Colonoscopy 10/21/2024 HIV Screening 10/21/2024 Hepatitis C Screening 10/21/2024 Social Influencers of Health Screening 10/21/2024 COVID-19 Vaccine (1 - 2023-2 5 season) 2025 Influenza Vaccine (#1) 2025 RSV Immunization Adult Patie nts (1 - 1-dose 75+ series) 2038 HIB [...]
--- OUTSIDE RECORDS SUMMARY | 2025-05-30 09:53 | XMS_ITS | Encounter Summary ---
Author Organization [employer] Address [address] [facility] 7t [place] [address] Care Team Providers Care Bag Loader Name Role Phone Kristen Cruz MD Primary Care Provider [phone] Sotero Garcias PharmD Unavailable [phone] Mohsen Brenner RN Unavailable [phone] Niharika Soliz Unavailable Reason for Visit * Reason Comments Med Refill Encounter Details Date Type Department Care Team (Late st Contact Info) Description 07/13/2023 Refill [facility] [address] [place], [place] [phone] Sotero Garcias, PharmD [address] [place] [address] Essential hypertension Social History Tobacco Use Types [...] hypertension documented in this encounter Care Teams Bag Loader Relationship Specialty Start Date End Date Kristen Cruz MD [address] [place], [place] [phone] PCP - General Family Medicine 09/26/18 Sotero Garcias, Maria E [address] [place], [place] [phone] Pharmacist Internal Medicine 07/11/23 Mohsen Brenner, LIBRADO [address] [place] [address] Registered Nurse Family Medicine 03/25/25 Niharika Soliz 03/25/25 documented as of this encounter
--- OUTSIDE RECORDS SUMMARY | 2025-05-30 09:53 | XMS_ITS ---
Author Organization [employer] Address 75 [facility] 7t [place] [address] Care Team Providers Care Dynamic Etching Processor Name Role Phone Kristen Cruz MD Primary Care Provider [phone] Sotero Garcias PharmD Unavailable [phone] Mohsen Brenner RN Unavailable [phone] Niharika Soliz Unavailable CM Complex Status:Enrolled (Active) Start date:03/25/2025 Enrollment date:04/09/2025 Enrollment reason:ADT Feed Overview ED- Pt went to [facility] ED on 03/24/25. Case Team Name Relationship Phone Mohsen Brenner RN(Responsible Staff) Registered Nurse [phone] Continued Care and Services Coordination
--- OUTSIDE RECORDS SUMMARY | 2025-05-30 09:53 | XMS_ITS | Encounter Summary ---
Author Organization [facility] Address [address] [place] [address] Care Team Providers Care Allergy Specialist Name Role Phone Unavailable Primary Care Provider Unavailabl e Encounter Details Date Type Department Care Team (Late st Contact Info) Description 08/30/2024 Lab Requisition [facility] - Main Lab [address] [facility] [place] [address] Social History Tobacco Use Types [...]
--- OUTSIDE RECORDS SUMMARY | 2025-05-30 09:54 | XMS_ITS | Encounter Summary ---
Author Organization [employer] Address [address] [facility] 7t [place] [address] Care Team Providers Care Behavioral Health Worker Name Role Phone Kristen Cruz MD Primary Care Provider [phone] Sotero Garcias PharmD Unavailable [phone] Mohsen Brenner RN Unavailable [phone] Niharika Soliz Unavailable Encounter Details Date Type Department Care Team (Late st Contact Info) Description 05/16/2025 Orders Only [facility] [address] [place], [place] [phone] Kristen Cruz MD [address] [place], [place] [phone] Social History Tobacco Use Types Packs/Day Years [...] Assessment Noted Time PHQ-9 Depression Total Score: 4 04/09/20 25 1:38 PM EDT documented as of this encounter Care Teams Behavioral Health Worker Relationship Specialty Start Date End Date Kristen Cruz MD [address] [place] [address] PCP - General Family Medicine 09/26/18 Sotero Garcias, PharmD [address] [place] [address] Pharmacist Internal Medicine 07/11/23 Mohsen Brenner, LIBRADO [address] [place] [address] Registered Nurse Family Medicine 03/25/25 Niharika Soliz 03/25/25 documented as of this encounter
--- OUTSIDE RECORDS SUMMARY | 2025-05-30 09:54 | XMS_ITS | Encounter Summary ---
Author Organization [employer] Address [address] [facility] 7t [place] [address] Care Team Providers Care Pharmacy Services Director Name Role Phone Kristen Cruz MD Primary Care Provider [phone] Sotero Garcias PharmD Unavailable [phone] Mohsen Brenner RN Unavailable [phone] Niharika Soliz Unavailable Encounter Details Date Type Department Care Team (Late st Contact Info) Description 12/15/2023 Orders Only [facility] [address] [place], [place] [phone] Kristen Cruz MD [address] [place], [place] [phone] Social History Tobacco Use Types Packs/Day Years [...] documented as of this encounter Care Teams Pharmacy Services Director Relationship Specialty Start Date End Date Kristen Cruz MD [address] [place] [address] PCP - General Family Medicine 09/26/18 Sotero Garcias, PharmD [address] [place] [address] Pharmacist Internal Medicine 07/11/23 Mohsen Brenner, LIBRADO [address] [place] [address] Registered Nurse Family Medicine 03/25/25 Niharika Soliz 03/25/25 documented as of this encounter
--- OUTSIDE RECORDS SUMMARY | 2025-05-30 09:54 | XMS_ITS | Encounter Summary ---
Author Organization [employer] Address [address] [facility] 7t [place] [address] Care Team Providers Care Shellfish Manager Name Role Phone Kristen Cruz MD Primary Care Provider [phone] Sotero Garcias PharmD Unavailable [phone] Mohsen Brenner RN Unavailable [phone] Niharika Soliz Unavailable Reason for Visit * Reason Comments Care Management C3CM- f/u call Encounter Details Date Type Department Care Team ([facility] st Contact Info) Description 05/29/2025 Patient Outreach [facility] [address] [place], [place] [phone] Kristen Cruz MD [address] [place], [place] [phone] Care Management (C3CM- f/u call) Social History Tobacco Use Types Packs/Day Years [...] AM EDT documented as of this encounter Progress Notes * Mohsen Brenner RN - 05/29/2025 9:42 AM EDT CM Mohsen Brenner RN placed outbound call to patient. Patient's name, and address confirmed. Patient states is doing well with no recent illnesses or emergency room visits. CM informed patient ofmessage from PCP: We can try phentermine 30 mg daily. Also, he can sign up for weight management clinic / surgical weight loss clinic. No need for a referral. Patient states he would like to start on the phentermine. CM advised message will be sent to PCP to prescribe. He agrees. Per patient, BP has been well controlled. He reports compliance to medication regimen and denies any needs or concerns at this time. No further questions or concerns. CM reinforced direct contact information for any additional questions or concerns. Education provided on [facility] Ur[facility] located in [facility]. Patient provided with after-hours line for [facility], , which offer night time triage service and option to transfer to pulmonology technician provider if needed. Patient verbalizes understanding, and able to r epeat back to justowriter operator. A follow up call will be placed within 10 days, patient agrees with plan. documented in this encounter Plan of Treatment [...] documented as of this encounter Care Teams Shellfish Manager Relationship Specialty Start Date End Date Kristen Cruz MD [address] [place] [address] PCP - General Family Medicine 09/26/18 Sotero Garcias, PharmD [address] [place] [address] Pharmacist Internal Medicine 07/11/23 Mohsen Brenner RN [address] [place] [address] Registered Nurse Family Medicine 03/25/25 Niharika Soliz 03/25/25 documented as of this encounter
--- OUTSIDE RECORDS SUMMARY | 2025-05-30 09:54 | XMS_ITS | Encounter Summary ---
Author Organization [employer] Address [address] [facility] 7t [place] [address] Care Team Providers Care Resaw Carriage Operator Name Role Phone Kristen Cruz MD Primary Care Provider [phone] Sotero Garcias PharmD Unavailable [phone] Mohsen Brenner RN Unavailable [phone] Niharika Soliz Unavailable Reason for Visit * Reason Comments Med Refill Encounter Details Date Type Department Care Team (Late st Contact Info) Description 03/10/2024 Refill [facility] MEDICINE [address] [place], [place] [phone] Kristen Cruz MD 230 [place], [place] [phone] Social History Tobacco Use Types Packs/Day Years [...] AM EDT documented as of this encounter Functional Status * Over the past 2 weeks, how often have you been bothered by any of the following problems? Question Answer Date of Assessment Author Patient Health Questionnaire-2 Score 0 03/13/2024 11:09 AM EDT Nagi Campbell MA * Over the last 2 weeks, how often have you been bothered by any of the following problems? Question Answer Date of Assessment Author Feeling nervous, anxious, or on edge 0 03/13/2024 11:09 AM EDT Pk Campbell MA Not being able to stop or control worrying 0 03/13/2024 11:09 AM RAIT Pk Campbell MA Worrying too much about different things 0 03/13/2024 11:09 AM Pk Ambrosio MA Trouble relaxing 0 03/13/2024 11:09 AM RAIT Chiquis Campbell MA Being so restless that it is hard to sit still 0 03/13/2024 11:09 AM RAIT Pk Campbell MA Becoming easily annoyed or irritable 0 03/13/2024 11:09 AM RAIT Pk Campbell MA Feeling afraid as if something awful might happen 0 03/13/2024 11:09 AM Chiquis Kramer MA YIFAN-7 Total Score 0 03/13/2024 11:09 AM Chiquis Ambrosio MA * Over the past 2 weeks, how often have you been bothered by any of the following problems? Question Answer Date of Assessment Author Little interest or pleasure in doing things Not at all 03/13/2024 11:09 AM Pk Ambrosio MA Feeling down, depressed, or hopeless Not at all 03/13/2024 11:09 AM RAIT Pk Campbell MA Trouble falling or staying asleep, or sleeping too much Not at all 03/13/2024 11:09 AM Chiquis Kramer MA Feeling tired or having little energy Not at all 03/13/2024 11:09 AM Pk Ambrosio [place] Poor appetite or overeating Not at all 03/13/2024 11 :09 AM Chiquis Ambrosio MA Feeling bad about yourself - or that you are a failure or have let yourself or your family down Not at all 03/13/2024 11:09 AM Pk Ambrosio [place] Trouble concentrating on things, such as reading the newspaper or watching television Not at all 03/13/2024 11:09 AM Pk Ambrosio MA Moving or speaking so slowly that other people could have noticed? Or the opposite - being so fidgety or restless that you have been moving around a lot more than usual. Not at all 03/13/2024 11:09 AM Chiquis Herr MA Thoughts that you would be better off or hurting yourself in some way Not at all 03/13/2024 11:09 AM Abhijeet Ambrosio MA Patient Health Questionnaire-9 Score 0 03/13/2024 11:09 AM Nagi Ambrosio MA documented as of this encounter Plan of [...] documented as of this encounter Care Teams Resaw Carriage Operator Relationship Specialty Start Date End Date Kristen Cruz MD [address] [place] [address] PCP - General Family Medicine 09/26/18 Sotero Garcias, PharmD [address] [place] [address] Pharmacist Internal Medicine 07/11/23 Mohsen Brenner RN [address] [place] [address] Registered Nurse Family Medicine 03/25/25 Niharika Soliz 03/25/25 documented as of this encounter
--- OUTSIDE RECORDS SUMMARY | 2025-05-30 09:54 | XMS_ITS | Encounter Summary ---
Author Organization [employer] Address [address] [facility] 7t [place] [address] Care Team Providers Care Manager Home Healthcare Name Role Phone Kristen Cruz MD Primary Care Provider [phone] Sotero Garcias PharmD Unavailable [phone] Mohsen Brenner RN Unavailable [phone] Niharika Soliz Unavailable Reason for Visit * Reason Comments Med Refill Encounter Details Date Type Department Care Team (Late st Contact Info) Description 04/10/2024 Refill [facility] MEDICINE 230 [place], [place] [phone] Kristen Cruz MD 230 [place], [place] [phone] Social History Tobacco Use Types Packs/Day Years [...] documented as of this encounter Care Teams Manager Home Healthcare Relationship Specialty Start Date End Date Kristen Cruz MD 230 [place] [address] PCP - General Family Medicine 09/26/18 Sotero Garcias, PharmD 230 [place] [address] Pharmacist Internal Medicine 07/11/23 Mohsen Brenner, LIBRADO [address] [place] [address] Registered Nurse Family Medicine 03/25/25 Niharika Soliz 03/25/25 documented as of this encounter
== END 2025-05-30 10:05 | disposition home or self-care (01) ==
LOC: HO.HPS 09:17
PROVIDERS: PCP Family Medicine; Visit Provider Hospitalist
DX: J45.40 Moderate persistent asthma, uncomplicated (principal); G47.33 Obstructive sleep apnea (adult) (pediatric)
CPT/HCPCS: 99214

== ENCOUNTER → 2025-05-30 09:11 | Outpatient (BNVA) | payer MEDICAID, SELFPAY | PROVIDERS: PCP Family Medicine; Visit Provider Hospitalist | DX: J45.40 Moderate persistent asthma, uncomplicated (principal); G47.33 Obstructive sleep apnea (adult) (pediatric) | CPT/HCPCS: 99212 ==

== ENCOUNTER 2025-08-13 11:14 | Outpatient (REF) | payer MEDICAID, SELFPAY ==
--- NOTE | ~2025-08-13 | XR_ITS ---
EXAMINATION: XR RIBS, RIGHT CLINICAL INFORMATION: right rib pain in T 10 dermatome area COMPARISON: Chest x-ray 05/05/2025. TECHNIQUE: PA view of the chest, and 4 views of the right ribs were obtained. FINDINGS: Lungs are clear. No consolidation, pneumothorax, or pleural effusion. The cardiomediastinal silhouette and pulmonary vasculature are normal. Osseous structures are unremarkable. Ribs are intact. No fractures or rib lesions are identified. XR/XR ribs RT min 3V w CXR1V IMPRESSION: No acute findings of the ribs or in the thorax. Electronically signed by: Sebastian Meneses MD 08/13/2025 01:10 PM [facility]
== END 2025-08-13 11:15 | disposition home or self-care (01) ==
LOC: HO.HHCX 11:14
PROVIDERS: PCP Family Medicine; Visit Provider Family Medicine
DX: R07.89 Other chest pain (principal)
CPT/HCPCS: 71101

== ENCOUNTER → 2025-08-13 11:40 | Outpatient (BNV) | payer MEDICAID, SELFPAY | PROVIDERS: PCP Family Medicine; Visit Provider Radiology Diagnostic Radiology | DX: R07.89 Other chest pain (principal) | CPT/HCPCS: 71101 ==

== ENCOUNTER 2025-08-26 08:34 | Outpatient (REF) | payer MEDICAID, SELFPAY ==
--- OUTSIDE RECORDS SUMMARY | 2025-08-26 15:15 | XMS_ITS | Encounter Summary ---
Author Organization [employer] Address 75 [facility] 7t [place] [address] Care Team Providers Care Cray Fishing Hand Name Role Phone Kristen Cruz MD Primary Care Provider [phone] Sotero Garcias PharmD Unavailable [phone] Reason for Visit * Reason Comments sick onsite Encounter Details Date Type Department Care Team (Late st Contact Info) Description 08/26/2025 3:15 PM EST Office [facility] MEDICINE 230 [place], [place] [phone] Sejal Vitale, ANP 230 [place], [place] [phone] Rash (Primary Dx); Right flank pain; Primary hypertension Social History Tobacco Use Types Packs/Day [...] Sign Reading Time Taken Comments Blood Pressure 140/100 08/26/2025 3:12 PM EST Pulse 62 08/26/2025 3:12 PM EST Temperature 36.2 C (97.1 F) 08/26/2025 3:12 PM EST Respiratory Rate 20 08/26/2025 3:12 PM EST Oxygen Saturation 95% 08/26/2025 3:12 PM EST Inhaled Oxygen Concentration - - Weight 122 kg (270 lb) 08/26/2025 3:12 PM EST Height 172.5 cm (5' 7.93 ) 08/26/2025 3:12 PM ES T Body Mass Index 41.14 08/26/2025 3:12 PM EST documented in this encounter Progress Notes * GRETCHEN Martinez - 08/26/2025 3:15 PM EST Images from the original note were not included. Papi Justino is here today for sick visit RUQ pain. PMH incl KANWAL on CPAP, GERD, hypertension, CTS, BPH, lumbar radiculopathy, IFG, postlaminectomy syndrome Justino Peoplesnandez, age 60 years Right-sided flank pain - Sharp pain localized to right side, worsens with movement, deep breath and coughing - Present for at least 2 weeks prior to visit - Pain described as especially noticeable at night when moving in bed - Denies burning sensation Rash - on exam he has Rash present on R side of abdomen, not bilateral - Denies itching or pain associated with rash - he was unaware of rash presence - vaccinated w/ shingrix 2020 Hypertension - Missed dose of blood pressure medication prior to visit - Uses pill box for medication management - Prefers taking blood pressure medication at night due to urinary frequency he assoc w/ it. We discussed this is likely his flomax which he also takes at night and cont to recommend lisinopril daytime. Non-smoker Objective Blood pressure (!) 140/100, pulse 62, temperature 97.1 ??F (36.2 ??C), temperature source Temporal,resp. rate 20, height 5' 7.93 (1.725 m), weight 270 lb (122 kg), SpO2 95%. Blood pressure remained elevated on repeat 140/100 Physical Exam Vitals reviewed. Constitutional: Appearance: Normal appearance. He is obese. HENT: Head: Normocephalic and atraumatic. Eyes: General: No scleral icterus. Extraocular Movements: Extraocular movements intact. Pupils: Pupils are equal, round, and reactive to light. Cardiovascular: Rate and Rhythm: Normal rate. Pulmonary: Effort: Pulmonary effort is normal. Musculoskeletal: Arms: Comments: TTP area above Skin: Comments: Maculopapular rash below R breast Neurological: Mental Status: He is alert and oriented to person, place, and time. Cranial Nerves: No cranial nerve deficit. - Chest X-ray: normal bony structures, no evidence of pneumonia Diagnoses and all orders for this visit: Rash - Localized rash noted anterior T5 dermatome, non-pruritic, non-burning. Testing today for VZV however suspect if VZV may be early as no vesicles but asked pt to RTC immediately if blisters should develop for more accurate testing - Monitor for changes in the rash or development of new symptoms. - Varicella-Zoster Virus, Rapid Method, Culture; Future Right flank pain Suspect Musculoskeletal pain vs possibly prodromal neuritis r/t VZV, new rash of unk duration at anterior T5 dermatome Chest X-ray ruled out pneumonia and bony pathology. - Apply heat to affected area using a heating pad. Perform gentle stretching exercises. Encourage deep breathing exercises to prevent hypoventilation. Hypertension: BP above goal < 120/80 - Hypertension managed with lisinopril. Suboptimal adherence to medication timing. - Advised to take lisinopril in the morning for optimal blood pressure control. Reinforced use of pill box for medication adherence. This note was drafted using Ambient (AI) technology. The patient/patient's guardian has been informed and has consented to the use of this technology: Yes documented in this encounter Plan of Treatment Scheduled Orders Name Type Priority Associated Diagnoses Orde r Schedule Varicella-Zoster Virus, Rapid Method, Culture Lab Routine Rash Expected: 08/26/2025 (Approximate), Expires: 08/26/2026 documented as of this encounter Goals Goal Patient Goal Type Associated Problems Recent Progress Patient-Stated? Author Blood Pressure < 140/90 Blood Pressure 140/100(2024 3:12 PM EST) No Sotero Garcias, Maria E documented as of this encounter Visit Diagnoses Diagnosis Rash- Primary Rash and other nonspecific skin eruption Right flank pain Abdominal pain, unspecified site Primary hypertension Unspecified essential hypertension documented in this encounter Additional Health Concerns Assessment Noted Time PHQ-9 Depression Total Score: 4 04/09/20 25 1:38 PM EDT documented as of this encounter Care Teams Cray Fishing Hand Relationship Specialty Start Date End Date Kristen Cruz MD 230 [place] [address] PCP - General Family Medicine 09/26/18 Sotero Garcias, Maria E 230 [place] [address] Pharmacist Internal Medicine 07/11/23 documented as of this encounter
--- OUTSIDE RECORDS SUMMARY | 2025-08-27 08:37 | XMS_ITS | Encounter Summary ---
Author Organization [facility] Address [address] [place] [address] Care Team Providers Care Shear Grinder Operator Name Role Phone Kristen Cruz MD Primary Care Provider [phone] Encounter Details Date Type Department Care Team (Late st Contact Info) Description 08/30/2024 Lab Requisition [facility] - Main Lab [address] [facility] [address] Social History Tobacco Use Types [...] on filedocumented in this encounter Care Teams Shear Grinder Operator Relationship Specialty Start Date End Date Kristen Cruz MD [address] [place] [phone] PCP - General Family Medicine 08/20/25 documented as of this encounter
--- OUTSIDE RECORDS SUMMARY | 2025-08-27 08:37 | XMS_ITS | Encounter Summary ---
Author Organization [facility] Address [address] [place] [address] Care Team Providers Care Hammer Shop Supervisor Name Role Phone Kristen Cruz MD Primary Care Provider [phone] Encounter Details Date Type Department Care Team (Late st Contact Info) Description 08/30/2024 Lab Requisition [facility] - Main Lab 299 [facility] [place] [address] Marlo Pizarro PA [address] [place] [address] Other microscopic hematuria Social History Tobacco Use [...] 3:26 PM EST [facility] at 1526 EST Clinical Information [id number] Cytology w/reflex UroVysion. 09/14/2024 3:26 PM EST [facility] Gross Description A. Urine, Voided, : [id number] RECD 1 TP SLIDE 09/14/2024 3:26 PM EST [facility] Disclaimer Technical pathology services provided by [facility] at [address], [place] [address] (CLIA #[id number] molly Morrison MD, Director Food And Beverage) Unless otherwise specified, all tissue is 10% NB formalin fixed and paraffin embedded. 09/14/2024 3:26 PM EST [facility] Tissue Urine specimen from urethra / Unknown 08/20/2024 08/30/2024 11:06 AM EST us [facility] PATHOLOGY ORDERAB LES Final Result [facility] [address] [place] [address], documented in this encounter Visit Diagnoses Diagnosis Other microscopic hematuria documented in this encounter Care Teams Hammer Shop Supervisor Relationship Specialty Start Date End Date Kristen Cruz MD [address] [place] [phone] PCP - General Family Medicine 08/20/25 documented as of this encounter
--- OUTSIDE RECORDS SUMMARY | 2025-08-27 08:37 | XMS_ITS | Clinical Summary ---
Author Organization [address] Address [address] [place] [address] Phone Care Team Providers Care Art Handler Name Role Phone Kristen Cruz MD Primary Care Provider [phone] Encounters Date Type Department Care Team Description 08/26/2025 Lab Requisition [facility] [address] [place] [address] Marlo Pizarro PA Benign essential microscopic hematuria 08/20/2025 Lab Requisition [facility] [address] [place] [address] Marlo Pizarro PA Urinary tract infection, site not specified; Benign essential microscopic hematuria from Last 3 Months Social History Tobacco Use Types Packs/Day Years Used Date Smoking Tobacco: Never Assessed Sex and Gender Information Value Date Recorded Sex Assigned at Not on file Legal Sex Male 1:00 AM EST Gender Identity Not on file Sexual Orientation Not on file Plan of Treatment Health Maintenance Due Date Last Done Comments Colorectal Cancer Screening: Colonoscopy 1965 DTaP,Tdap,and Td Vaccines (1 - Tdap) 1982 Pneumococcal Vaccine: 50+ Ye ars (1 of 1 - PCV) 2013 Zoster Vaccines (1 of 2) 2013 Depression Screening 09/26/2024 Cholesterol Screening (Lipid Panel) 10/21/2024 HIV Screening 10/21/2024 Hepatitis C Screening 10/21/2024 Social Influencers of Health Screening 10/21/2024 COVID-19 Vaccine (1 - 2024-2 6 season) 2025 Influenza Vaccine (#1) 2025 RSV [...] on patient's age to complete this topic Procedures Procedure Name Priority Date/Time Associated Diagnosis Comments CULTURE URINE Routine 08/20/2025 10:15 AM EST Urinary tract infection, site not specified Benign essential microscopic hematuria from Last 3 Months Results * Culture urine (08/20/2025 10:15 AM EST) Culture, Urine No growth 08/21/2025 10:37 AM EST [facility] Urine Urine specimen obtained by clean catch procedure / Unknown 08/20/2025 10:15 AM EST 08/20/2025 1:21 PM EST [facility] MICROBIOLOGY - GE NERAL ORDERABLES Final Result [facility] [address] [place] [address], [place] [phone] from Last 3 Months Insurance MEDICAID - [place] Care Teams Art Handler Relationship Specialty Start Date End Date Kristen Cruz MD [address] [place] [phone] PCP - General Family Medicine 08/20/25
--- OUTSIDE RECORDS SUMMARY | 2025-08-27 08:37 | XMS_ITS | Encounter Summary ---
Author Organization [employer] Address [address] [facility] 7t [place] [address] Care Team Providers Care Back Wedger Name Role Phone Kristen Cruz MD Primary Care Provider [phone] Sotero Garcias PharmD Unavailable [phone] Mohsen Brenner RN Unavailable [phone] Niharika Soliz Unavailable Reason for Visit * Reason Comments Med Refill Encounter Details Date Type Department Care Team (Late st Contact Info) Description 07/13/2023 Refill [facility] MEDICINE 230 [place], [place] [phone] Sotero Garcias, PharmD 230 [place] [address] Essential hypertension Social History Tobacco Use Types [...] 140/100(2024 3:12 PM EST) No Sotero Garcias, PharmD documented as of this encounter Visit Diagnoses Diagnosis Essential hypertension Unspecified essential hypertension documented in this encounter Care Teams Back Wedger Relationship Specialty Start Date End Date Kristen Cruz MD [address] [place], [place] [phone] PCP - General Family Medicine 09/26/18 Sotero Garcias, Maria E [address] [place], [place] [phone] Pharmacist Internal Medicine 07/11/23 Mohsen Brenner, LIBRADO [address] [place] [address] Registered Nurse Family Medicine 03/25/25 07/10/25 Niharika Soliz 03/25/25 07/11/25 documented as of this encounter
--- OUTSIDE RECORDS SUMMARY | 2025-08-27 08:37 | XMS_ITS | Encounter Summary ---
Author Organization [facility] Address 75 [facility] 7t [place] [address] Care Team Providers Care Licensed Staff Mft Name Role Phone Kristen Cruz MD Primary Care Provider [phone] Sotero Garcias PharmD Unavailable [phone] Mohsen Brenner RN Unavailable [phone] Niharika Soliz Unavailable Encounter Details Date Type Department Care Team (Latest Contact Info) Description 03/01/2019 Abstract [facility] CONVERSIONS Dental, Provider, DDS Social History Tobacco [...] on filedocumented in this encounter Care Teams Licensed Staff Mft Relationship Specialty Start Date End Date Kristen Cruz MD 230 [place], [place] [phone] PCP - General Family Medicine 09/26/18 Sotero Garcias, PharmD 230 [place], [place] [phone] Pharmacist Internal Medicine 07/11/23 Mohsen Brenner, RN [address] [place] [address] [place] [address] Registered Nurse Family Medicine 03/25/25 07/10/25 Niharika Soliz 03/25/25 07/11/25 documented as of this encounter
--- OUTSIDE RECORDS SUMMARY | 2025-08-27 08:38 | XMS_ITS | Encounter Summary ---
Author Organization [employer] Address 75 [facility] 7t [place] [address] Care Team Providers Care Director Visual Name Role Phone Kristen Cruz MD Primary Care Provider [phone] Sotero Garcias PharmD Unavailable [phone] Mohsen Brenner RN Unavailable [phone] Niharika Soliz Unavailable Encounter Details Date Type Department Care Team (Late st Contact Info) Description 12/27/2024 Orders Only [facility] MEDICINE 230 [place], [place] [phone] Kristen Cruz MD [address] [place], [place] [phone] Social History Tobacco Use Types Packs/Day Years [...] documented as of this encounter Care Teams Director Visual Relationship Specialty Start Date End Date Kristen Cruz MD [address] [place] [address] PCP - General Family Medicine 09/26/18 Sotero Garcias, PharmD [address] [place] [address] Pharmacist Internal Medicine 07/11/23 Mohsen Brenner RN [address] [place] [address] Registered Nurse Family Medicine 03/25/25 07/10/25 Niharika Soliz 03/25/25 07/11/25 documented as of this encounter
--- OUTSIDE RECORDS SUMMARY | 2025-08-27 08:38 | XMS_ITS | Encounter Summary ---
Author Organization [employer] Address [address] [facility] 7t [place] [address] Care Team Providers Care Wheat Grower Name Role Phone Kristen Cruz MD Primary Care Provider [phone] Sotero Garcias PharmD Unavailable [phone] Reason for Visit * Reason Comments Med Refill Encounter Details Date Type Department Care Team ([facility] st Contact Info) Description 07/16/2025 Refill [facility] MEDICINE 230 [place], [place] [phone] Kristen Cruz MD 230 [place], [place] [phone] Social History Tobacco Use Types Packs/Day Years [...] documented as of this encounter Care Teams Wheat Grower Relationship Specialty Start Date End Date Kristen Cruz MD 230 [place] [address] PCP - General Family Medicine 09/26/18 Sotero Garcias, PharmD [address] [place] [address] Pharmacist Internal Medicine 07/11/23 documented as of this encounter
--- OUTSIDE RECORDS SUMMARY | 2025-08-27 08:38 | XMS_ITS | Encounter Summary ---
Author Organization [facility] Address [address] [place] [address] Care Team Providers Care Search Lead Name Role Phone Kristen Cruz MD Primary Care Provider [phone] Encounter Details Date Type Department Care Team (Late st Contact Info) Description 08/20/2025 Lab Requisition [facility] - Main Lab 299 [facility] [place] [address] Marlo Pizarro PA [address] [place] [address] Urinary tract infection, site not specified; Benign essential microscopic hematuria Social History Tobacco Use Types [...] site not specified Benign essential microscopic hematuria documented in this encounter Results * Culture urine (08/20/2025 10:15 AM EST) Culture, Urine No growth 08/21/2025 10:37 AM EST [facility] Urine Urine specimen obtained by clean catch procedure / Unknown 08/20/2025 10:15 AM EST 08/20/2025 1:21 PM EST us [facility] MICROBIOLOGY - GE NERAL ORDERABLES Final Result [facility] [address] [place] [address], documented in this encounter Visit Diagnoses Diagnosis Urinary tract infection, site not specified Benign essential microscopic hematuria documented in this encounter Care Teams Search Lead Relationship Specialty Start Date End Date Kristen Cruz MD [address] [place] [phone] PCP - General Family Medicine 08/20/25 documented as of this encounter
--- OUTSIDE RECORDS SUMMARY | 2025-08-27 08:38 | XMS_ITS | Encounter Summary ---
Author Organization [employer] Address [address] [facility] [address] [place] [address] Care Team Providers Care Fern Gatherer Name Role Phone Kristen Cruz MD Primary Care Provider [phone] Sotero Garcias PharmD Unavailable [phone] Reason for Visit * Reason Onset Date Comments Nurse Triage 08/26/2025 Encounter Details Date Type Department Care Team ([facility] st Contact Info) Description 08/26/2025 Telephone [facility] [address] [place], [place] [phone] Kristen Cruz MD [address] [place], [place] [phone] Nurse Triage Social History Tobacco Use Types Packs/Day Years [...] AM EDT documented as of this encounter Miscellaneous Notes * Telephone Encounter - Chanel Orozco RN - 08/26/2025 9:24 AM EST called pt to triage, spoke to pt through [employer] Operations Support Representative. pt states speaks Palestinian and the guide held on the line as needed. pt states seen about 2 weeks ago for RUQ pain which is not getting any better. pt states worse at night while lying down and when coughing or sneezing. pt denies pain after eating, fever, nausea, vomiting, or radiation to back. given appt today with green team provider at 3:15 for exam. advised home care: rest, fluids, monitor and call back as needed. pt understands and agrees with plan. Protocol Used: Abdominal Pain - Male (Adult) Protocol-Based Disposition: See in Office or Video Visit Today Video visit offer not recorded Positive Triage Question: * Patient wants to be seen * All higher-acuity triage questions were negative. Care Advice Discussed: * Rest * Drink Clear Fluids * Diet * Pass a Stool * Avoid Aspirin and NSAIDs * Reasons To Call Back - Severe pain lasts over 1 hour - Constant pain lasts over 2 hours - Intermittent pains (comes and goes, cramps) lasts over 48 hours - You become worse * Telephone Encounter - Casandra Soliz - 08/26/2025 8:06 AM EST Symptom: Abdominal Pain - Male Outcome: Schedule an appointment to be seen within 24 hours Reason: Caller denied all higher acuity questions The caller accepted this outcome. Contac pt at [phone] Need guide documented in this encounter Plan of Treatment [...] documented as of this encounter Care Teams Fern Gatherer Relationship Specialty Start Date End Date Kristen Cruz MD [address] [place] [address] PCP - General Family Medicine 09/26/18 Sotero Garcias, PharmD [address] [place] [address] Pharmacist Internal Medicine 07/11/23 documented as of this encounter
--- OUTSIDE RECORDS SUMMARY | 2025-08-27 08:38 | XMS_ITS | Encounter Summary ---
Author Organization [employer] Address [address] [facility] [address] [place] [address] Care Team Providers Care Coil Wrapper Name Role Phone Kristen Cruz MD Primary Care Provider [phone] Sotero Garcias PharmD Unavailable [phone] Encounter Details Date Type Department Care Team (Late st Contact Info) Description 08/14/2025 Orders Only [facility] [address] [place], [place] [phone] Kristen Cruz MD [address] [place], [place] [phone] Chronic low back pain, unspecified back pain [...] as of this encounter Visit Diagnoses Diagnosis Chronic low back pain, unspecified back pain laterality, unspecified whether sciatica present Lumbar radiculopathy Thoracic or lumbosacral neuritis or radiculitis, unspecified documented in this encounter Additional Health Concerns Assessment Noted Time PHQ-9 Depression Total Score: 4 04/09/20 25 1:38 PM EDT documented as of this encounter Care Teams Coil Wrapper Relationship Specialty Start Date End Date Kristen Cruz MD [address] [place] [id number] PCP - General Family Medicine 09/26/18 Sotero Garcias, NaylaD [address] [place] [id number] Pharmacist Internal Medicine 07/11/23 documented as of this encounter
--- OUTSIDE RECORDS SUMMARY | 2025-08-27 08:38 | XMS_ITS | Clinical Summary ---
Author Organization [employer] Address [address] [facility] 7[address] [place] [address] Care Team Providers Care Drill Operator Automatic Name Role Phone Kristen Cruz MD Primary Care Provider [phone] Sotero Garcias PharmD Unavailable [phone] Allergies Active Allergy Reactions Criticality Noted Date [...] DAY AT BEDTIME FOR INSOMNIA. 023 Active loratadine (Claritin) 10 MG tablet [...] times daily. 15 mL 1 024 Active montelukast (Singulair) 10 MG tabletIndication s:Allergic rhinitis, unspecified seasonality, unspecified trigger Take 1 tablet (10 mg) by mouth at bedtime. 90 tablet 3 024 Active famotidine (Pepcid) 20 MG tabletIndication s:Dyspepsia Take 1 tablet (20 mg) by mouth 2 times daily. 60 tablet 11 024 Active Neomycin-Polymyx in-HC 1 % solution Administer 3 drops into affected ear(s) 4 times daily. 10 mL 024 Active triamcinolone (Kenalog) 0.1 % cream Apply topically if needed in the morning and at bedtime (pain and swelling). 30 g 3 024 Active Symbicort 160-4.5 MCG/ACT inhaler Inhale 2 puffs 2 times daily. 025 Active Incruse Ellipta 62.5 MCG/ACT aerosol powder inhale 1 puff by mouth daily 024 Active cholecalciferol (Vitamin D-3) 25 MCG (1000 UT) tablet Take 1 tablet (25 mcg) by mouth Once per day. 90 tablet 3 025 Active lisinopril 40 MG tablet TAKE 1 TABLET(40 MG) BY MOUTH DAILY 90 tablet 3 025 Active Ketotifen Fumarate 0.035 % solution Administer 1 drop into both eyes 2 times daily. Instill 1 drop to each eye twice daily 10 mL 1 Active cyclobenzaprine (Flexeril) 5 MG tablet Take 5 mg by mouth. Active phentermine 30 MG capsule Take 1 capsule (30 mg) by mouth before breakfast. 90 capsule 025 2025 Active atorvastatin (Lipitor) 10 MG tablet Take 1 tablet (10 mg) by mouth Once per day. 90 tablet 3 025 2025 Active Tirzepatide-Weig ht Management 2.5 MG/0.5ML solution auto-injector Inject 0.5 mL (2.5 mg) under the skin 1 (one) time per week. 2 mL Active lidocaine (Lidoderm) 5 % patch APPLY 1 PATCH TOPICALLY TO THE SKIN EVERY DAY. MAY WEAR UP TO 12 HOURS 30 patch 1 Active acetaminophen (Tylenol) 500 MG tabletIndication s:Rib pain Take 1 tablet (500 mg) by mouth every 8 (eight) hours if needed for moderate pain for up to 60 doses. 60 tablet 08/26/20 25 4:22 PM EST Active traMADol (Ultram) 50 MG tabletIndication s:Chronic low back pain, unspecified back pain laterality, unspecified whether sciatica present,Lumbar radiculopathy Take 1 tablet (50 mg) by mouth if needed in the morning and at bedtime for severe pain. Maximum Monthly Dose 15 tabs 15 tablet Active traMADol (Ultram) 50 MG tabletIndication s:Chronic low back pain, unspecified back pain laterality, unspecified whether sciatica present,Lumbar radiculopathy Take 1 tablet (50 mg) by mouth if needed in the morning and at bedtime for severe pain. 15 tablet 2024 Discontinued(R eorder (will not trigger notification to Pharmacy)) lidocaine (Lidoderm) 5 % patch APPLY 1 PATCH TOPICALLY TO THE SKIN EVERY DAY. MAY WEAR UP TO 12 HOURS 30 patch 1 025 2024 Discontinued acetaminophen (Tylenol) 500 MG tablet Take 500 mg by mouth every 8 (eight) hours if needed for moderate pain. 2024 Discontinued(R eorder (will not trigger notification to Pharmacy)) Active Problems Problem Noted Date Diagnosed Date Postlaminectomy syndrome 08/02/2025 Assessment & Plan (08/02/2025 3:43 PM EST): - Following up with [facility] orthopedist, last seen May 2025 - Patient has been receiving steroid injection treatment - Continue judicious use of NSAIDs, APAP, and tramadol (occasional use) - Continue home exercise program, walking program, and achieving healthy weight Dyslipidemia 03/14/2024 Assessment & Plan (07/23/2025 5:30 AM EDT): - last lipid profile in December 2024 - 10-year ASCVD risk suggests statin-benefit group, moderate intensity - continue atorvastatin 10 mg at bedtime Assessment & Plan (04/05/2025 5:53 AM EDT): [...] Lumbar radiculopathy 07/11/2023 07/11/2023 Assessment & Plan (08/02/2025 3:41 PM EST): - Following with [facility], last seen in May 2025 - Continue home exercise program for lumbar spine conditioning and stability - Continue judicious use of NSAIDs - Continue working on weight loss and walking program - he occasionally uses tramadol. No more than 10 per month Assessment & Plan (12/25/2024 2:07 PM EDT): - Prescribed traMADol (Ultram) 50 MG tablet 12/25/24 KANWAL on CPAP 11/23/2022 Assessment & Plan (08/02/2025 3:46 PM EST): -sleep study 2016 -followed by sleep study clinic, last seen on 05/18/21 -currently seeing Dr. Villasenor, gi asst -pt currently on auto CPAP from 6-16 cmH20 pressure -symptoms are improving with weight loss -pt encouraged to use CPAP machine Assessment & Plan (04/05/2025 6:07 AM EDT): -sleep study 2016 -followed by sleep study clinic, last seen on 05/18/21 -currently seeing Dr. Villasenor, gi asst -pt currently on auto CPAP from 6-16 cmH20 pressure -symptoms are improving with weight loss -pt encouraged to use CPAP machine Assessment & Plan (12/29/2024 11:55 AM EDT): -sleep study 2016 -followed by sleep study clinic, last seen on 05/18/21 -currently seeing Dr. Villasenor gi asst -pt currently on auto CPAP from 6-16 cmH20 pressure -symptoms are improving with weight loss -pt encouraged to use CPAP machine Assessment & Plan (10/05/2024 12:43 PM EST): -sleep study 2016 -followed by sleep study clinic, last seen on 05/18/21 -currently seeing Dr. Villasenor gi asst -pt currently on auto CPAP from 6-16 [...] require tramadol regularly, then will refer to [employer] team -Avoid NSAIDs Assessment & Plan (03/13/2024 [...] Impaired fasting glucose 07/22/2015 Assessment & Plan (08/02/2025 3:38 PM EST): - Most recent A1c 5.5% in December 2024 - Continue working on lifestyle modification - Previously had a good result with GLP-1 RA, we would like to restart GLP-1 RA Assessment & Plan (04/05/2025 5:56 AM EDT): - Most recent A1c 5.5% - Continue working on lifestyle modification - Previously had a good result with GLP-1 RA, we restarted GLP-1 RA Sacroiliac joint pain 07/22/2015 Spondylosis 07/22/2015 HTN (hypertension) 07/03/2015 Assessment & Plan (08/02/2025 3:33 PM EST): - goal BP< 130/80 per ACC/AHA guideline - BP at goal today - co-managed with our pharamcist -01/27/18 Echo normal LVEF 55-60% -questionable adherence to [...] months or sooner prn Assessment & Plan (04/05/2025 5:53 AM EDT): [...] adenoma of colon 12/24/2014 Assessment & Plan (07/23/2025 5:31 AM EDT): - tubular adenoma in 2017 and 2021 - most recent colonoscopy in March 2024 by [facility] [place] Boo. Hyperplastic polyp. Recommended to repeat colonoscopy in 5 years. Assessment & Plan (04/05/2025 5:56 AM EDT): - tubular adenoma in 2017 and 2021 - most recent colonoscopy in March 2024 [place] [facility] [place] Boo. Hyperplastic polyp. Recommended to repeat colonoscopy in 5 years. Assessment & Plan (06/20/2024 12:08 PM EDT): - tubular adenoma in 2017 and 2021 - most recent colonoscopy in March 2024 by [facility] [place] Boo. Hyperplastic polyp. Recommended to repeat colonoscopy in 5 years. Assessment & Plan (03/14/2024 11:31 AM EDT): - last colonoscopy in 2017 - [place] [facility] last seen in Sep 2021 - Upcoming appointment for colonoscopy and EGD Assessment & Plan (08/19/2023 11:50 AM EST): - last colonoscopy in 2017 - [place]: [facility], last seen in Sep 2021 - He [...] short course of tramadol - will need [employer] agreement if pt needs another tramadol script in the future GERD (gastroesophageal reflux disease) 3 Assessment & Plan (08/02/2025 3:39 PM EST): - continue pantoprazole - check the duration of PPI therapy Assessment & Plan (04/05/2025 5:56 AM EDT): - continue pantoprazole Assessment & Plan (03/14/2024 11:31 AM EDT): - continue pantoprazole Asthma 11/07/2012 Assessment & Plan (08/02/2025 3:45 PM EST): -following with Dr. Villasenor [facility] Inspector last seen on 05/30/2025 -last asthma flare up in 06/2024. Treated with Prednisone and no ABx -continue Symbicort, as maintenance. Discussed about mouth care after each use. Consider MART -continue montelukast -continue Albuterol, as rescue. Consider MART -treatment history: patient tried Trelegy but was unable to tolerate due to nausea; Flovent was switched to Symbicort. Patient self discontinued umeclidinium (Incruse) due to side effects. Assessment & Plan (04/05/2025 6:07 AM EDT): -following with Dr. Villasenor [facility]itarian Inspector last seen on 09/24/24. -last asthma flare [...] PM EST): -following up with Dr. Villasenor [facility] Sanitarian Inspector last seen on 09/24/24. -last asthma flare [...] to Breo and Incruse. Will confirm with gi asst. Assessment & Plan (03/13/2024 11:47 AM EDT): [...] inhaler once daily. -CXR was negative -saw PulmonDr. Hamilton deleon and was switched to Breo and Incruse. Will confirm with gi asst. Assessment & Plan (12/12/2023 5:08 PM EDT): [...] Benign prostatic hyperplasia 11/07/2012 Assessment & Plan (07/23/2025 5:31 AM EDT): -Urologist: [facility], last seen in Jul 2024 - TRUSP biopsy on 07/07/21 for elevated PSA; result was benign. - continue trospium as prescribed Assessment & Plan (04/05/2025 5:58 AM EDT): [...] -continue Flonase Obesity 05/24/2012 Assessment & Plan (08/02/2025 3:38 PM EST): - he is prescribed aripiprazole by psychiatrist, which makes it difficult to lose weight - started semaglutide since January 2024. He developed nausea, vomiting and constipation with higher dose. Tried to restart at lower dose, but it was not approved - agreed to switch to tirzepatide. PA request was denied twice. Meanwhile, he regained weigh and BP is high - due to uncontrolled hypertension, phentermine is relatively contraindicated. However, we have been trying phentermine with caution due to insurance requirement for stepwise therapy - continue working on lifestyle modifications Dietary Recommendations: Fruits, vegetables, whole grains, protein foods, and fat-free or low-fat dairy products are healthy choices. Eat different types of protein foods in your diet. This can include seafood, lean meats, poultry, beans, peas, lentils, nuts, seeds, soy products, and eggs. Limit foods and beverages higher in added sugars, saturated fat, and sodium. Exercise Recommendations: At least 150 minutes of moderate-intensity physical activity per week, or an equivalent combination of moderate- and vigorous-intensity activity Assessment & Plan (04/05/2025 6:15 AM EDT): [...] prescribe antibiotic drops with steroid Rash 09/25/2024 08/02/2025 Assessment & Plan (10/05/2024 12:45 PM EST): -pt likely has eczema or lichen planus -avoid scratching -will prescribe topical steroid cream Cough 11/19/2023 03/14/2024 Assessment & Plan (12/12/2023 [...] Date Type Department Care Team Description 08/26/2025 3:15 PM EST Office [facility] [place] [address] Sejal Vitale ANP Rash (Primary Dx); Right flank pain; Primary hypertension 08/26/2025 Travel 08/26/20[address] [place] [address] Kristen Cruz MD Nurse Triage 08/14/2025 Orders Only [address] [place] [address] Kristen Cruz MD Chronic low back pain, unspecified back pain laterality, unspecified whether sciatica present; Lumbar radiculopathy 08/13/2025 10:00 AM EST Office Visit [facility] [place] [address] Hortencia Mitchell MD Rib pain on right side (Primary Dx) 08/13/2025 Telephone [facility] [place] [address] Kristen Cruz MD 08/13/2025 Results Follow-Up [facility] [place] [address] Hortencia Mitchell MD XR Ribs 3 Views Right with Chest 1 View 08/13/2025 Travel 08/12/2025 Refill [facility] [place] [address] Sejal Vitale ANP 07/30/2025 Telephone [facility] [place] [address] Kristen Cruz MD Prior Authorization ( PA: Sacha) 07/23/2025 9:15 AM EDT Office Visit [facility] [place] [address] Kristen Cruz MD Hypertension, unspecified type (Primary Dx); Dyslipidemia; Impaired fasting glucose; Benign prostatic hyperplasia, unspecified whether lower urinary tract symptoms present; Class 3 severe obesity due to excess calories with serious comorbidity and body mass index (BMI) of 40.0 to 44.9 in adult ([facility]); Gastroesophageal reflux disease, unspecified whether esophagitis present; Lumbar radiculopathy; Postlaminectomy syndrome; Moderate persistent asthma without complication; KANWAL on CPAP 07/23/2025 Travel 07/18/2025 Refill [facility] [address] [place] [address] Kristen Cruz MD 07/16/2025 Refill [facility] [address] [place] [address] Kristen Cruz MD 07/10/2025 Patient Outreach [address] [address] Kristen Cruz MD Care Management (C3CM- f/u call) 07/03/2025 Patient Outreach [address] [address] Kristen Cruz MD Care Management (C3CM- f/u call lvm) 06/18/2025 Patient Outreach [address] [address] Kristen Cruz MD Care Management (C3CM- f/u call) 06/11/2025 Orders Only [address] [address] Kristen Cruz MD 06/11/2025 Patient Outreach [address] [address] Kristen Cruz MD Care Management (C3CM- f/u call. Not available.) 05/29/2025 Patient Outreach [address] [address] Kristen Cruz MD Care Management (C3CM- f/u call) from Last 3 Months Immunizations Immunization Administration Dates Next Due Influenza injectable quadriv alent preservative free 06/22/2023,06/21/2022,07/01/2021,06/26,07/27/2018 Influenza, IIV3, injectable 07/28/2014, 0,08/07/2008 Influenza, Injectable, MDCK, preservative free 05/31/2025,06/20/2015 Influenza, Split (incl. dima fied surface antigen) 02/13/2014,05/24/2012 Influenza, seasonal, injecta ble, preservative free 06/20/2024,06/26/2017,07/25/2016 Moderna Covid-19 Vaccine 12+ 11/24/2020 Pfizer Covid-19 Vaccine 12+ 07/23/2025,,11/20/2020 Pfizer Covid-19 Vaccine 12+ Bivalent 09/22/2022 Pneumococcal [...] Mass Index 41.14 08/26/2025 3:12 PM EST Plan of Treatment Health Maintenance Due Date Last Done Comments CT Colonography 1965 FIT DNA/Cologuard 1965 FIT 1965 FOBT 1965 Sigmoidoscopy 1965 Disability Screening 12/25/2025 12/25/2024 SDOH Screening 03/25/2026 03/25/2025 Depression Screening 04/09/2026 04/09/2025, 04/09/20 25 Alcohol/Substance Use Screening 07/23/2026 07/23/2025 Tobacco Screening 08/26/2026 08/26/2025 Colonoscopy 04/13/2029 04/13/2024, 0705/2024, 09/22/2021, Additional history exists Colorectal Cancer Screening 04/13/2029 Lipid Panel 12/25/2029 12/25/2024, 09/26, 11/23/2022, Additional history exists DTaP/Tdap/Td Vaccines (4 - Td or Tdap) 06/22/2034 06/22/2024, 06/21/2022, 01/05/2012, Additional history exists HIV Screening Completed 11/26/2019 Zoster Vaccines Completed 09/08/2021, 07/01/2021 Hepatitis C Screening Completed 11/23/2022, 020 Pneumococcal Vaccine: 50+ Years Completed 12/12/2023, 02/13/2014 RSV Patients and Patients Aged 60 years or older Completed 06/22/2024 Influenza Vaccine Completed 05/31/2025, , 06/22/2023, Additional history exists COVID-19 Vaccine Completed 07/23/2025, , 09/03/2023, Additional history exists HIB Vaccines Aged Out No longer eligi [...] 140/100(2024 3:12 PM EST) No Sotero Garcias, NaylaD Procedures Procedure Name Priority Date/Time Associated Diagnosis Comments XR RIBS 3 VIEWS RIGHT W CHEST 1 VIEW Routine 08/13/2025 12:01 PM EST LIPID PANEL WITH REFLEX TO DIRECT LDL Routine 12/25/2024 1:23 PM EDT Dyslipidemia HM COLONOSCOPY Routine 04/13/2024 HEPATITIS C AB W/REFL TO HCV RNA, QN, PCR Routine 11/23/2022 11:46 AM EST ZZZ HISTORICAL HIV AB/AG Routine 11/26/2019 7:15 AM EST from Last 3 Months or Most Recently Relevant to Health Maintenance Results * XR Ribs 3 Views Right with Chest 1 View (08/13/2025 12:01 PM EST) Anatomical Region Laterality Modality Radiographic Lucy ging 08/13/2025 12:0 1 PM EST Narrative 08/13/2025 1:13 PM EST [address] [address] XRay Report Signed Patient: Justino Bailey R#: [id number] : 1965 Acct:[id number] Age/Sex: 59 / M ADM Date: 08/13/25 Loc: HO.HHCX Attending Dr: Hortencia Mitchell MD Ordering Physician: Hortencia Mitchell MD Date of Service: 08/13/25 Procedure(s): XR ribs RT min 3V w CXR1V Accession Number(s): [id number] cc: Hortencia Mitchell MD; Kristen Cruz MD Reason for Exam: right rib pain in T 10 dermatome area EXAMINATION: XR RIBS, RIGHT CLINICAL INFORMATION: right rib pain in T 10 dermatome area COMPARISON: Chest x-ray 05/05/2025. TECHNIQUE: PA view of the chest, and 4 views of the right ribs were obtained. FINDINGS: Lungs are clear. No consolidation, pneumothorax, or pleural effusion. The cardiomediastinal silhouette and pulmonary vasculature are normal. Osseous structures are unremarkable. Ribs are intact. No fractures or rib lesions are identified. XR/XR ribs RT min 3V w CXR1V IMPRESSION: No acute findings of the ribs or in the thorax. Electronically signed by: Sebastian Meneses MD 08/13/2025 01:10 PM EST RP Dictated By: Sebastian Meneses MD Signed By: <Electronically signed by Sebastian Meneses MD in OV> 08/13/25 1310 DD/ 1201 TD/TT: 08/13/25 1145 Embroidery Patternmaker: Procedure Note Donotuseinterpreter, Image - 08/13/[address] [address] XRay Report Signed Patient: Justino Bailey AM R#: [id number] : 1965Acct:[id number] Age/Sex: 59 / MADM Date: 08/13/25 Loc: HO.HHCX Attending Dr: Hortencia Mitchell MD Ordering Physician: Hortencia Mitchell MD Date of Service: 08/13/25 Procedure(s): XR ribs RT min 3V w CXR1V Accession Number(s): [id number] cc: Hortencia Mitchell MD; Kristen Cruz MD Reason for Exam: right rib pain in T 10 dermatome area EXAMINATION: XR RIBS, RIGHT CLINICAL INFORMATION: right rib pain in T 10 dermatome area COMPARISON: Chest x-ray 05/05/2025. TECHNIQUE: PA view of the chest, and 4 views of the right ribs were obtained. FINDINGS: Lungs are clear. No consolidation, pneumothorax, or pleural effusion. The cardiomediastinal silhouette and pulmonary vasculature are normal. Osseous structures are unremarkable. Ribs are intact. No fractures or rib lesions are identified. XR/XR ribs RT min 3V w CXR1V IMPRESSION: No acute findings of the ribs or in the thorax. Electronically signed by: Sebastian Meneses MD 08/13/2025 01:10 PM EST RP Dictated By: Sebastian Meneses MD Signed By: <Electronically signed by Sebastian Meneses MD in OV> 08/13/25 1310 DD/ 1201 TD/TT: 08/13/25 1145 Embroidery Patternmaker: Hortencia Mitchell MD IMG XR PROCEDURES Final Re sult * Lipid Panel with Reflex to Direct LDL (12/25/2024 1:23 PM EDT) Triglycerides 88 <150 mg/dL [facility] Comment:Desirable Triglyceri de: less than 150 mg/dLBorderline High Triglyceride 150-199 mg/dLHigh Triglyceride: 200-499 mg/dLVery High Triglyceride: greater than or equal to 5OO mg/dL Cholesterol 151 <200 mg/dL [facility] Comment:Desirable Cholestero l: less than 200 mg/dLBorderline High Cholesterol: 200-239 mg/dLHigh Cholesterol: greater than 239 mg/dL LDL Cholesterol Calculated 92 <100 mg/dL [facility] Comment:Desirable LDL: less than 100 mg/dLNear Optimal/Above Optimal LDL: 110- 129 mg/dLBorderline High LDL: 130-159 mg/dLHigh LDL: 160-189 mg/dLVery High LDL: greater than or equal to 190 mg/dL HDL Cholesterol 42 >40 mg/dL [facility] Comment:Desirable HDL: great er than 40 mg/dL Note: This HDL assay may give artificially low results in patients with liver disease. Blood 12/25/2024 1:23 PM EDT 12/25/2024 4:07 PM EDT Kristen Cruz MD LAB BLOOD ORDERABLES Final Resul t [facility] [address] [place] [phone] * Hm Colonoscopy (04/13/2024) Colonoscopy Normal Normal 04/13/2024 Historical Provider HEALTH MAINTENANCE Final Result * Hepatitis C Antibody with Reflex to HCV, RNA, Quantitative, Real-Time PCR (11/23/2022 11:46 AM EST) Hepatitis C Antibody NON-REACT WOO NON-REACT WOO [facility] Index 0.06 <1.00 [facility] Comment: HCV antibody was non-reactive. There is no laboratory evidence of HCV infection. In most cases, no further action is required. However, if recent HCV exposure is suspected, a test for HCV RNA (test code 09124) is suggested. For additional information please refer to http://education.Exogenesis/faq/NRW80a8 (This link is being provided for informational/ educational purposes only.) 11/23/2022 11:4 6 AM EST 11/23/2022 11:47 AM EST Kristen Cruz MD LAB BLOOD ORDERABLES Final Resul t Performing Organization Address City/[facility] Co de Phone Number [facility] [address], [place] [address] [employer] [place] [facility] [address] [facility], (N[address]) [place] [address] * HIV AB/AG (11/26/2019 7:15 AM EST) Pathologist [facility] HIV AG/AB NONREACTIVE NR FOUNDAT[facility] ON LAB [...] limit of detection of this assay. The [employer] Trainee HIV Ag/Ab Combo assay result and supplemental assay results should be interpreted in conjunction with the patient's clinical presentation, history and other laboratory results. If the results are inconsistent with clinical evidence, additional testing is suggested to confirm the result. 11/26/2019 7:15 AM EST Kristen Cruz MD HISTORICAL/NON ORDERABLE LABS Fi nal Result [facility] Anywhere [address] from Last 3 Months or Most Recently Relevant to Health Maintenance Insurance [facility] C3 Care Teams Drill Operator Automatic Relationship Specialty Start Date End Date Kristen Cruz MD [address] [place] [address] PCP - General Family Medicine 09/26/18 Sotero Garcias, NaylaD [address] [place] [address] Pharmacist Internal Medicine 07/11/23
--- OUTSIDE RECORDS SUMMARY | 2025-08-27 08:38 | XMS_ITS | Encounter Summary ---
Author Organization [employer] Address [address] [facility] 7t [place] [address] Care Team Providers Care Forklift Mechanic Name Role Phone Kristen Cruz MD Primary Care Provider [phone] Sotero Garcias PharmD Unavailable [phone] Mohsen Brenner RN Unavailable [phone] Niharika Soliz Unavailable Encounter Details Date Type Department Care Team (Late st Contact Info) Description 06/11/2025 Orders Only [facility] [address] [place], [place] [phone] Kristen Cruz MD [address] [place], [place] [phone] Social History Tobacco Use Types Packs/Day Years [...] documented as of this encounter Care Teams Forklift Mechanic Relationship Specialty Start Date End Date Kristen Cruz MD [address] [place] [address] PCP - General Family Medicine 09/26/18 Sotero Garcias, PharmD [address] [place] [address] Pharmacist Internal Medicine 07/11/23 Mohsen Brenner, LIBRADO [address] [place] [id number] Registered Nurse Family Medicine 03/25/25 07/10/25 Niharika Soliz 03/25/25 07/11/25 documented as of this encounter
--- OUTSIDE RECORDS SUMMARY | 2025-08-27 08:38 | XMS_ITS | Encounter Summary ---
Author Organization [employer] Address [address] [facility] [address] [place] [address] Care Team Providers Care Artist Woodblock Name Role Phone Kristen Cruz MD Primary Care Provider [phone] Sotero Garcias PharmD Unavailable [phone] Mohsen Brenner RN Unavailable [phone] Niharika Soliz Unavailable Reason for Visit * Reason Comments Med Refill Encounter Details Date Type Department Care Team (Late st Contact Info) Description 04/10/2024 Refill [facility] [address] [place], [place] [phone] Kristen Cruz MD [address] [place], [place] [phone] Social History Tobacco Use Types Packs/Day Years [...] documented as of this encounter Care Teams Artist Woodblock Relationship Specialty Start Date End Date Kristen Cruz MD [address] [place] [address] PCP - General Family Medicine 09/26/18 Sotero Garcias, PharmD [address] [place] [address] Pharmacist Internal Medicine 07/11/23 Mohsen Brenner, LIBRADO [address] [place] [id number] Registered Nurse Family Medicine 03/25/25 07/10/25 Niharika Soliz 03/25/25 07/11/25 documented as of this encounter
--- OUTSIDE RECORDS SUMMARY | 2025-08-27 08:38 | XMS_ITS | Encounter Summary ---
Author Organization [employer] Address [address] [facility] [address]t [place] [address] Care Team Providers Care Tool And Equipment Rental Clerk Name Role Phone Kristen Cruz MD Primary Care Provider [phone] Sotero Garcias PharmD Unavailable [phone] Mohsen Brenner RN Unavailable [phone] Niharika Soliz Unavailable Reason for Visit * Reason Comments Med Refill Encounter Details Date Type Department Care Team (Late st Contact Info) Description 03/10/2024 Refill [facility] [address] [place], [place] [phone] Kristen Cruz MD [address] [place], [place] [phone] Social History Tobacco Use Types Packs/Day Years [...] down Not at all 03/13/2024 11:09 AM kP [place] Trouble concentrating on things, such [...] Time PHQ-9 Depression Total Score: 0 08/09/20 2:58 PM EST documented as of this encounter Care Teams Tool And Equipment Rental Clerk Relationship Specialty Start Date End Date Kristen Cruz MD [address] [place] [address] PCP - General Family Medicine 09/26/18 Soetro Garcias, PharmD [address] [place] [address] Pharmacist Internal Medicine 07/11/23 Mohsen Brenner RN [address] [place] [id number] Registered Nurse Family Medicine 03/25/25 07/10/25 Nhiarika Soliz 03/25/25 07/11/25 documented as of this encounter
--- OUTSIDE RECORDS SUMMARY | 2025-08-27 08:38 | XMS_ITS | Encounter Summary ---
Author Organization [facility] Address [address] [place] [address] Care Team Providers Care Health Care Liaison Name Role Phone Kristen Cruz MD Primary Care Provider [phone] Encounter Details Date Type Department Care Team (Late st Contact Info) Description 08/26/2025 Lab Requisition [facility] - Main Lab [address] [facility] [place] [address] Marlo Pizarro PA [address] [place] [address] Benign essential microscopic hematuria Social History Tobacco Use Types Packs/Day Years Used Date Smoking Tobacco: Never Assessed Sex and Gender Information Value Date Recorded Sex Assigned at Not on file Legal Sex Male 1:00 AM EST Gender Identity Not on file Sexual Orientation Not on file documented as of this encounter Plan of Treatment Pending Results Name Type Priority Associated Diagnoses Date /Time Non-gynecologic cytology Pathology and Cytology Routine Benign essential microscopic hematuria 08/20/2025 12:00 AM EST documented as of this encounter Visit Diagnoses Diagnosis Benign essential microscopic hematuria documented in this encounter Care Teams Health Care Liaison Relationship Specialty Start Date End Date Kristen Cruz MD [address] [place] [phone] PCP - General Family Medicine 08/20/25 documented as of this encounter
--- OUTSIDE RECORDS SUMMARY | 2025-08-27 08:38 | XMS_ITS | Encounter Summary ---
Author Organization [employer] Address [address] [facility] 7t [place] [address] Care Team Providers Care Control Clerk Subassembly Name Role Phone Kristen Cruz MD Primary Care Provider [phone] Sotero Garcias PharmD Unavailable [phone] Encounter Details Date Type Department Care Team (Latest Contact Info) Description 08/26/2025 Travel Social History Tobacco Use Types Packs/Day [...] documented as of this encounter Care Teams Control Clerk Subassembly Relationship Specialty Start Date End Date Kristen Cruz MD [address] [place] [address] PCP - General Family Medicine 09/26/18 Sotero Garcias, PharmD [address] [place] [address] Pharmacist Internal Medicine 07/11/23 documented as of this encounter
--- OUTSIDE RECORDS SUMMARY | 2025-08-27 08:38 | XMS_ITS | Encounter Summary ---
Author Organization [employer] Address [address] [facility] [address] [place] [address] Care Team Providers Care Utilities Manager Name Role Phone Kristen Cruz MD Primary Care Provider [phone] Sotero Garcias PharmD Unavailable [phone] Mohsen Brenner RN Unavailable [phone] Niharika Soliz Unavailable Encounter Details Date Type Department Care Team (Late st Contact Info) Description 12/15/2023 Orders Only [facility] MEDICINE [address] [place], [place] [phone] Kristen Cruz MD [address] [place], [place] [phone] Social History Tobacco Use Types Packs/Day Years [...] documented as of this encounter Care Teams Utilities Manager Relationship Specialty Start Date End Date Kristen Cruz MD [address] [place] [address] PCP - General Family Medicine 09/26/18 Sotero Garcias, PharmD [address] [place] [address] Pharmacist Internal Medicine 07/11/23 Mohsen Brenner, LIBRADO [address] [place] [id number] Registered Nurse Family Medicine 03/25/25 07/10/25 Niharika Soliz 03/25/25 07/11/25 documented as of this encounter
== END 2025-08-26 08:35 | disposition home or self-care (01) ==
LOC: HO.LNP 08:34
PROVIDERS: Visit Provider Nurse Practitioner Primary Care
DX: R21 Rash and other nonspecific skin eruption (principal)
CPT/HCPCS: 87254